=== PATIENT | female | born 1940 | race Caucasian/White ===

== ENCOUNTER → 2018-12-11 | Day surgery (SDC) | payer MEDICARE, OTHER ==
[~2018-12-11] VITALS: Ht 166.4 cm; Wt 65.8 kg
[2018-12-11] VITALS (7 sets, daily range): BP systolic 121–150; BP diastolic 82–110
[~2018-12-11] MED LIST: APIX5TAB4 PO; ASPI-983 PO; ATOR10TA66 PO; DILT240C86 PO; DILTIAZEM 240 MG (CARDIZEM CD) CAP PO NR; DRON400T2 PO; LATA7.5D OP; NETA2.5D OP; NS IV 1000 ML 1,000 ML IV SCH; NS IV 1000 ML 1,000 ML ONE; PANT40TA3 PO; proPOfol 200 MG/20 ML (DIPRIVAN) VIAL IV ONE
--- OUTSIDE RECORDS SUMMARY | 2018-12-11 07:40 | XMS REPORT | Continuity of Care Document ---
Author Organization Unknown Address Unknown Allergies Active Description Code Type Severity Reaction Onset Reported/Identified Relationship to Patient Clinical Status Yes NO KNOWN DRUG ALLERGIES UNKNOWN NO KNOWN DRUG ALLERG Medications There is no data. 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 Results Test Result Range EKG - 12/06/16 12:58 EKG Complete Vitamin D, 25 OH - 01/05/17 06:45 Vitamin D, 25 OH 18.10 ng/mL 25.00-100.00 GLENNA w/Reflex - 01/05/17 06:45 GLENNA DIRECT Negative Negative Thyroid Stimulating Hormone - 11/06/18 08:01 TSH 3.10 mIU/mL 0.32-5.00 Urinalysis - 11/06/18 09:15 Icotest N/A Negative Urine Volume Urine Volume Sufficient (10mL) Urine-Appearance Clear Clear Urine-Bacteria Negative Urine-Bilirubin Negative Negative Urine-Blood Negative Negative Urine-Color Yellow Colorless-Lt. Yellow Urine-Epithelial Cells 0-5/HPF Urine-Glucose Negative Negative Urine-Ketones Negative Negative Urine-Leukocytes Negative Negative Urine-Nitrite Negative Negative Urine-Other Urine Saved if Culture Needed (48hrs from time of collection) Urine-pH 6.5 5-8.5 Urine-Protein Negative Negative Urine-RBC Negative Urine-Specific [place] 1.010 1.000-1.030 Urine-WBC Negative Urobilinogen 0.2 E.U./dL 0.2-1.0 Thyroid Stimulating Hormone - 11/18/18 11:30 TSH 3.30 mIU/mL 0.32-5.00 Encounters ACCT No. Visit Date/Time Discharge Status Pt. Type Provider Facility Loc./Unit Complaint [id number] 11/18/2018 14:02:00 11/18/2018 23:59:00 DIS Outpatient Josh Wu [id number] 11/06/2018 07:56:00 11/06/2018 10:00:00 DIS Outpatient [facility] ER [id number] 01/05/2017 06:35:00 01/05/2017 23:59:00 DIS Outpatient Joselin Juarez [id number] 12/06/2016 12:39:00 12/06/2016 23:59:00 DIS Outpatient Jose Ruano [id number] 12/02/2018 10:40:00 12/02/2018 23:59:59 CLS Preadmit Brooklyn KUHN MD Via [facility] CARD TYPICAL ATRIAL FLUTTER [id number] 12/02/2018 10:39:00 12/02/2018 23:59:59 CLS Preadmit Brooklyn KUHN MD Via [facility] CARD TYPICAL ATRIAL FLUTTER [id number] 12/02/2018 10:37:00 12/02/2018 23:59:59 DEBBIE Preadmit Brooklyn KUHN MD Via [facility] CARD TYPICAL ATRIAL FLUTTER [id number] 12/11/2018 09:00:00 PEN Brooklyn Montemayor MD Via [facility] CATH SYMPTOMATIC AFIB
--- NOTE | 2018-12-11 10:05 | Cardioversion ---
Cardioversion PROCEDURE PHYSICIAN: Manuela Siegel MD DATE OF PROCEDURE: 12/11/18 DIRECT EXTERNAL ELECTRICAL CARDIOVERSION: Indications: Atrial Fibrillation with rapid ventricular rate Preoperative diagnoses: Atrial Fibrillation with rapid ventricular rate Postoperative diagnosis: Sinus rhythm, Successful Electrical Cardioversion History: This is a 78-year-old lady with paroxysmal atrial fibrillation, typical atrial flutter on multaq 400 mg twice a day for at least the last one week. Anesthesia: By Anesthesia services Complications: None Specimen: None Contrast: 0 Flouroscopy: none Procedure Details: The patient was brought the cathead worker after informed consent was taken, all the risks and complications were explained including the risk of stroke. Electrical cardioversion was carried out with anesthesia support with propofol. 200 joules of synchronized shock x 4 was delivered through external patches which did not restore sinus rhythm. The patient tolerated the procedure well. Conclusions: 1.Unsuccessful Cardioversion. 2.Continue oral anticoagulation and multaq 400 mg twice a day. Start Cardizem CD 240 mg daily. Manuela Siegel MD, RS, CCDS Cardiac Electrophysiology Brooklyn SIEGEL MD December 11, 2018 10:05
--- NOTE | 2018-12-11 10:07 | Anesthesia-Procedure Note ---
Procedures/Interventions Procedure Start/Stop/Diagnosis Date of Procedure: December 11, 2018 Start Time: 09:23 Stop Time: 09:28 KIMBERLEY/Cardioversion Anesthesia Type: mac ASA Class: 2 Medications propofol 50 mg Monitors and Equipment: BP Cuff - Left, Continuous EKG, End Tidal CO2, IV, Pulse Oximeter KAMRAN AKERS CRNA December 11, 2018 10:07
--- NOTE | 2018-12-11 10:09 | Anesthesia-Procedure Note ---
Procedures/Interventions Procedure Start/Stop/Diagnosis Date of Procedure: December 11, 2018 Start Time: 09:37 Stop Time: 09:44 KIMBERLEY/Cardioversion Anesthesia Type: mac ASA Class: 2 Medications propofol 70 mg Monitors and Equipment: BP Cuff - Left, Continuous EKG, End Tidal CO2, IV, Pulse Oximeter KAMRAN AKERS CRNA December 11, 2018 10:09
--- NOTE | 2018-12-11 12:06 | Anesthesia-General Post-Op ---
MAC Patient Condition Mental Status/LOC: Same as Preop Cardiovascular: Satisfactory Nausea/Vomiting: Absent Respiratory: Satisfactory Pain: Controlled Complications: Absent Post Op Complications Complications None Follow Up Care/Instructions Patient Instructions None needed. Anesthesiology Discharge Order Discharge Order Patient is doing well, no complaints, stable vital signs, no apparent adverse anesthesia problems. No complications reported per nursing. KAMRAN AKERS CRNA December 11, 2018 12:06
== END | disposition home or self-care (01) ==
LOC: CATH 07:37
PROVIDERS: ATTEND Internal Medicine Interventional Cardiology
DX: I48.0 Paroxysmal atrial fibrillation (principal); I48.3 Typical atrial flutter; I10 Essential (primary) hypertension; Z86.73 Personal history of transient ischemic attack (TIA), and cerebral infarction without residual deficits; Z79.01 Long term (current) use of anticoagulants; Z79.82 Long term (current) use of aspirin; Z79.899 Other long term (current) drug therapy
CPT/HCPCS: 92960; 93005

== ENCOUNTER → 2018-12-16 | Outpatient (CLI) | payer MEDICARE, OTHER ==
[~2018-12-16] MED LIST changes: -DILTIAZEM 240 MG (CARDIZEM CD) CAP PO NR; -NS IV 1000 ML 1,000 ML IV SCH; -NS IV 1000 ML 1,000 ML ONE; -proPOfol 200 MG/20 ML (DIPRIVAN) VIAL IV ONE
== END ==
LOC: CARD 08:29
PROVIDERS: ATTEND Internal Medicine Interventional Cardiology
DX: I48.3 Typical atrial flutter (principal); I48.1 Persistent atrial fibrillation; I63.9 Cerebral infarction, unspecified; R06.02 Shortness of breath; I10 Essential (primary) hypertension
CPT/HCPCS: 93306

== ENCOUNTER → 2018-12-18 | Day surgery (SDC) | payer MEDICARE, OTHER ==
[~2018-12-18] VITALS: Ht 165.1 cm; Wt 65.3 kg
[~2018-12-18] MED LIST changes: +CATHETER FLUSH 10 ML SYR IV PRN; +REGADENOSON 0.4 MG/5 ML SYR (LEXISCAN) IV ONE
--- OUTSIDE RECORDS SUMMARY | 2018-12-18 06:54 | XMS REPORT | Continuity of Care Document ---
[...] 5-8.5 Urine-Protein Negative Negative Urine-RBC Negative Urine-Specific [place] 1.010 1.000-1.030 Urine-WBC Negative Urobilinogen 0.2 E.U./dL 0.2-1.0 Thyroid Stimulating Hormone - 11/18/18 11:30 TSH 3.30 mIU/mL 0.32-5.00 Encounters ACCT No. Visit Date/Time Discharge Status Pt. Type Provider Facility Loc./Unit Complaint [id number] 11/18/2018 14:02:00 11/18/2018 23:59:00 DIS Outpatient Josh Wu [id number] 11/06/2018 07:56:00 11/06/2018 10:00:00 [id number]2017 06:35:00 01/05/2017 23:59:00 DIS Outpatient Joselin Juarez [id number] 12/06/2016 12:39:00 12/06/2016 23:59:00 DIS Outpatient Jose Ruano [id number] 12/11/2018 09:00:00 12/11/2018 23:59:59 CLS Preadmit Brooklyn KUHN MD Via [facility] CATH SYMPTOMATIC AFIB [id number] 12/02/2018 10:40:00 12/02/2018 23:59:59 CLS Preadmit Brooklyn KUHN MD Via [facility] CARD TYPICAL ATRIAL FLUTTER [id number] 12/02/2018 10:39:00 12/02/2018 23:59:59 CLS Preadmit Brooklyn KUHN MD Via [facility] CARD TYPICAL ATRIAL FLUTTER [id number] 12/02/2018 10:37:00 12/02/2018 23:59:59 CLS Preadmit Brooklyn KUHN MD Via [facility] CARD TYPICAL ATRIAL FLUTTER
[2018-12-18 08:47] VITALS: BP 143/70
[2018-12-18 08:48] VITALS: BP 145/79
--- NOTE | 2018-12-18 17:51 | Cardiology Stress Test Report ---
Stress Test Report Type of NM Stress Test: Test Type: LEXISCAN 0.4MG/5ML Date of Procedure/Referring: Date of Procedure: December 18, 2018 PCP Brooklyn Siegel MD Admitting Physician Josh Wu MD Indications: Symptomatic atrial flutter Baseline Heart Rate: 96 Baseline Blood Pressure: Blood Pressure Systolic: 145 Blood Pressure Diastolic: 79 Baseline EKG: Baseline EKG: atrial fibrillation Summary & Conclusion: Summary: The patient was brought to the stress lab after informed consent was taken. Stress test was performed according to the Lexiscan protocol. 0.4 mg of IV Lexiscan was given. Low-grade exercise was performed. Baseline EKG showed atrial fibrillation at 96 BPM. Initial blood pressure was 143/79 mmHg. Maximum heart rate was 128 bpm and blood pressure 143/82 mmHg. Patient did not have any chest pain, arrhythmias or ST segment changes during the stress test. 11.0 mCi of Myoview were given for rest imaging and 30.2 mCi of Myoview given for stress imaging. Transient ischemic dilatation score 0.99, EF 64 percent. Normal wall motion. Normal myocardial perfusion imaging during rest and stress. Conclusion: Pharmacological stress test was negative for ischemia. Normal LV function with no wall motion abnormalities. Normal myocardial perfusion imaging during rest and stress. Brooklyn SIEGEL MD December 18, 2018 5:51 pm
== END | disposition home or self-care (01) ==
LOC: CARD 06:37
PROVIDERS: ATTEND Internal Medicine Interventional Cardiology
DX: I48.3 Typical atrial flutter (principal); I48.1 Persistent atrial fibrillation; I63.9 Cerebral infarction, unspecified; R06.02 Shortness of breath; I10 Essential (primary) hypertension
CPT/HCPCS: 78452; 93017

== ENCOUNTER 2018-12-25 07:39 | Day surgery (SDC) | payer MEDICARE, OTHER ==
[~2018-12-25 07:39] MED LIST changes: -CATHETER FLUSH 10 ML SYR IV PRN; +NS IV 1000 ML 1,000 ML ONE; -REGADENOSON 0.4 MG/5 ML SYR (LEXISCAN) IV ONE
[2018-12-25] MEDS ORDERED: NS IV 1000 ML 1,000 ML IV SCH (07:45)
[2018-12-25 07:56] VITALS: BP 152/98
[2018-12-25] MEDS ORDERED: DILT240C86 PO (07:59)
[2018-12-25] MEDS ORDERED: proPOfol 200 MG/20 ML (DIPRIVAN) VIAL IV ONE (08:11)
[2018-12-25] MEDS ORDERED: MIDAZOLAM 2 MG/2 ML (VERSED) VIAL ONE (08:12)
[2018-12-25] MEDS ORDERED: fentaNYL INJECTION 100 MCG/2 ML AMP ONE (08:12)
[2018-12-25 08:34] VITALS: BP 152/98
[2018-12-25 09:04] VITALS: BP 109/72
[2018-12-25 09:21] VITALS: BP 126/86
--- NOTE | 2018-12-25 10:20 | Anesthesia-Procedure Note ---
Procedures/Interventions Procedure Start/Stop/Diagnosis Date of Procedure: December 25, 2018 Start Time: 08:45 Referring Physician: Robbin Preprocedural Diagnosis: Atrial Fib Brief History Called to prosthetic lab technician for scheduled cardioversion for Atrial Fibrillation. Monitors applied. O2 per NC. NPO status verified. ASA 3. Pt received a total of 80 mg Propofol in increments. VSS. Pt remained stable. Report to RN in stable condition. Stop Time: 08:55 Postprocedural Diagnosis: Atrial Fib KATIA BROWNE CRNA December 25, 2018 10:19
--- OUTSIDE RECORDS SUMMARY | 2018-12-25 10:20 | XMS REPORT | Continuity of Care Document ---
Author Organization Unknown Address Unknown Allergies Active Description Code Type Severity Reaction Onset Reported/Identified Relationship to Patient Clinical Status Yes NO KNOWN DRUG ALLERGIES UNKNOWN NO KNOWN DRUG ALLERG Yes No Known Drug Allergies [id number] Drug Allergy Unknown N/A 12/11/2018 Medications There is no data. Problems Date [...] I10 ESSENTIAL (PRIMARY) HYPERTENSION 11/06/2018 ROBERT BRYAN Mray I63.9 CEREBRAL INFARCTION, UNSPECIFIED 11/06/2018 ROBERT BRYAN Mary M62.81 MUSCLE WEAKNESS (GENERALIZED) 11/06/2018 ROBERT BRYAN Mary R29.810 FACIAL WEAKNESS 12/15/2018 HATTIE QUINONEZ, Brooklyn VIERA Ot I10 ESSENTIAL (PRIMARY) HYPERTENSION 12/15/2018 HATTIE QUINONEZ, Brooklyn VIERA Ot I48.0 PAROXYSMAL ATRIAL FIBRILLATION 12/15/2018 Brooklyn KUHN MD Ot I48.3 TYPICAL ATRIAL FLUTTER 12/15/2018 Brooklyn KUHN MD Ot Z79.01 GAME MASTER (CURRENT) USE OF ANTICOAGULANT 12/15/2018 Brooklyn KUHN MD Ot Z79.82 GAME MASTER (CURRENT) USE OF ASPIRIN 12/15/2018 Brooklyn KUHN MD Ot Z79.899 OTHER GROUP HOME (CURRENT) DRUG THERAPY 12/15/2018 Brooklyn KUHN MD Ot Z86.73 PRSNL HX OF TIA (TIA), AND CEREB INFRC W 12/17/2018 Brooklyn KUHN MD Ot I10 ESSENTIAL (PRIMARY) HYPERTENSION 12/17/2018 Brooklyn KUHN MD Ot I48.0 PAROXYSMAL ATRIAL FIBRILLATION 12/17/2018 Brooklyn KUHN MD Ot I48.3 TYPICAL ATRIAL FLUTTER 12/17/2018 Brooklyn KUHN MD Ot Z79.01 GROUP HOME (CURRENT) USE OF ANTICOAGULANT 12/17/2018 Brooklyn KUHN MD Ot Z79.82 GROUP HOME (CURRENT) USE OF ASPIRIN 12/17/2018 Brooklyn KUHN MD Ot Z79.899 OTHER GAME MASTER (CURRENT) DRUG THERAPY 12/17/2018 Brooklyn KHUN MD Ot Z86.73 PRSNL HX OF TIA (TIA), AND CEREB INFRC W 12/17/2018 Brooklyn KUHN MD Ot I10 ESSENTIAL (PRIMARY) HYPERTENSION 12/17/2018 Brooklyn KUHN MD Ot I48.0 PAROXYSMAL ATRIAL FIBRILLATION 12/17/2018 Brooklyn KUHN MD Ot I48.3 TYPICAL ATRIAL FLUTTER 12/17/2018 Brooklyn KUHN MD Ot Z79.01 GAME MASTER (CURRENT) USE OF ANTICOAGULANT 12/17/2018 Brooklyn KUHN MD Ot Z79.82 GROUP HOME (CURRENT) USE OF ASPIRIN 12/17/2018 Brooklyn KUHN MD Ot Z79.899 OTHER GAME MASTER (CURRENT) DRUG THERAPY 12/17/2018 Brooklyn KUHN MD Ot Z86.73 PRSNL HX OF TIA (TIA), AND CEREB INFRC W 12/17/2018 Brooklyn KUHN MD Ot I10 ESSENTIAL (PRIMARY) HYPERTENSION 12/17/2018 Brooklyn KUHN MD Ot I48.0 PAROXYSMAL ATRIAL FIBRILLATION 12/17/2018 Brooklyn KUHN MD, Ot I48.3 TYPICAL ATRIAL FLUTTER 12/17/2018 Brooklyn KUHN MD, Ot Z79.01 GROUP HOME (CURRENT) USE OF ANTICOAGULANT 12/17/2018 Brooklyn KUHN MD Ot Z79.82 GAME MASTER (CURRENT) USE OF ASPIRIN 12/17/2018 Brooklyn KUHN MD, Ot Z79.899 OTHER GROUP HOME (CURRENT) DRUG THERAPY 12/17/2018 Brooklyn KUHN MD, Ot Z86.73 PRSNL HX OF TIA (TIA), AND CEREB INFRC W 12/22/2018 Brooklyn KUHN MD, Ot I10 ESSENTIAL (PRIMARY) HYPERTENSION 12/22/2018 Brooklyn KUHN MD Ot I48.1 PERSISTENT ATRIAL FIBRILLATION 12/22/2018 Brooklyn KUHN MD Ot I48.3 TYPICAL ATRIAL FLUTTER 12/22/2018 Brooklyn KUHN MD Ot I63.9 CEREBRAL INFARCTION, UNSPECIFIED 12/22/2018 Brooklyn KUHN MD Ot R06.02 SHORTNESS OF BREATH 12/22/2018 Brooklyn KUHN MD Ot I10 ESSENTIAL (PRIMARY) HYPERTENSION 12/22/2018 Brooklyn KUHN MD Ot I48.1 PERSISTENT ATRIAL FIBRILLATION 12/22/2018 Brooklyn KUHN MD Ot I48.3 TYPICAL ATRIAL FLUTTER 12/22/2018 Brooklyn KUHN MD Ot I63.9 CEREBRAL INFARCTION, UNSPECIFIED 12/22/2018 Brooklyn KUHN MD Ot R06.02 SHORTNESS OF BREATH Procedures There is no data. Results Test [...] 5-8.5 Urine-Protein Negative Negative Urine-RBC Negative Urine-Specific [place] 1.010 1.000-1.030 Urine-WBC Negative Urobilinogen 0.2 E.U./dL 0.2-1.0 Thyroid Stimulating Hormone - 11/18/18 11:30 TSH 3.30 mIU/mL 0.32-5.00 Encounters ACCT No. Visit Date/Time Discharge Status Pt. Type Provider Facility Loc./Unit Complaint [id number] 11/18/2018 14:02:00 11/18/2018 23:59:00 DIS Outpatient Josh Wu [id number] 11/06/2018 07:56:00 11/06/2018 10:00:00 [id number]/05/2017 06:35:00 01/05/2017 23:59:00 DIS Outpatient Joselin Juarez [id number] 12/06/2016 12:39:00 12/06/2016 23:59:00 DIS Outpatient Jose Ruano [id number] 12/18/2018 06:37:00 12/18/2018 23:59:59 CLS Outpatient Brooklyn KUHN MD Via [facility] CARD SYMPTOMATIC ATRIAL FLUTTER [id number] 12/16/2018 08:29:00 12/16/2018 23:59:59 CLS Outpatient Brooklyn KUHN MD Via [facility] CARD TYPICAL ATRIAL FLUTTER [id number] 12/11/2018 07:37:00 12/11/2018 23:59:59 CLS Outpatient Brooklyn KUHN MD Via [facility] CATH SYMPTOMATIC AFIB [id number] 12/02/2018 10:39:00 12/02/2018 23:59:59 CLS Preadmit Brooklyn KUHN MD Via [facility] CARD TYPICAL ATRIAL FLUTTER [id number] 12/02/2018 10:37:00 12/02/2018 23:59:59 CLS Preadmit Brooklyn KUHN MD Via [facility] CARD TYPICAL ATRIAL FLUTTER [id number] 02/16/2019 08:00:00 PEN Preadmit Brooklyn KUHN MD Via [facility] CATH TYPICAL ATRIAL FLUTTER [id number] 12/25/2018 07:39:00 ACT Outpatient Brooklyn KUHN MD Via [facility] CATH SYMPTOMATIC ATRIAL FLUTTER
--- NOTE | 2018-12-25 11:42 | Cardioversion ---
Cardioversion PROCEDURE PHYSICIAN: Manuela Siegel MD DATE OF PROCEDURE: 12/25/18 DIRECT EXTERNAL ELECTRICAL CARDIOVERSION: Indications: Atrial Fibrillation with rapid ventricular rate Preoperative diagnoses: Atrial Fibrillation with rapid ventricular rate Postoperative diagnosis: Unsuccessful Electrical Cardioversion History: This is a 78-year-old lady with history of persistent atrial fibrillation. Previous unsuccessful cardioversion without antiarrhythmic therapy. She was started on multaq 400 mg twice a day. Cardioversion was not scheduled on antiarrhythmic therapy. Patient continues to be on uninterrupted oral anticoagulation. Anesthesia: By Anesthesia services Complications: None Specimen: None Contrast: 0 Flouroscopy: none Procedure Details: The patient was brought the dental laboratory assistant after informed consent was taken, all the risks and complications were explained including the risk of stroke. Electrical cardioversion was carried out with anesthesia support with propofol. 200 joules x3 of synchronized shock was delivered through external patches which did not restore sinus rhythm. The patient tolerated the procedure well. Conclusions: 1.Unsuccessful Cardioversion. 2.Continue oral anticoagulation and rate controlling agent. Discontinue multaq. 3.Follow up in office on previously scheduled appointment. Manuela Siegel MD, RS, CCDS Cardiac Electrophysiology Brooklyn SIEGEL MD December 25, 2018 11:42
--- NOTE | 2018-12-25 13:56 | Anesthesia-General Post-Op ---
MAC Patient Condition Mental Status/LOC: Same as Preop Cardiovascular: Satisfactory Nausea/Vomiting: Absent Respiratory: Satisfactory Pain: Controlled Complications: Absent Post Op Complications Complications None Follow Up Care/Instructions Patient Instructions None needed. Anesthesiology Discharge Order Discharge Order Patient is doing well, no complaints, stable vital signs, no apparent adverse anesthesia problems. No complications reported per nursing. KATIA BROWNE CRNA December 25, 2018 13:56
== END 2018-12-25 11:22 | disposition home or self-care (01) ==
LOC: CATH 07:39
PROVIDERS: ATTEND Internal Medicine Interventional Cardiology
DX: I48.0 Paroxysmal atrial fibrillation (principal); I48.3 Typical atrial flutter; I10 Essential (primary) hypertension; Z86.73 Personal history of transient ischemic attack (TIA), and cerebral infarction without residual deficits; Z79.01 Long term (current) use of anticoagulants; Z79.899 Other long term (current) drug therapy
CPT/HCPCS: 92960; 93005

== ENCOUNTER 2019-02-09 06:55 | Inpatient (IN) | payer MEDICARE, OTHER ==
[2019-02-09] VITALS (21 sets, daily range): BP systolic 116–147; BP diastolic 59–90
[~2019-02-09] VITALS: Ht 166.4 cm; Wt 67.1 kg
[~2019-02-09 06:55] MED LIST changes: -NS IV 1000 ML 1,000 ML ONE
[2019-02-09] MEDS ORDERED: LIDOCAINE 1% INJ 20 ML 20 ML VIAL ONE (06:56)
[2019-02-09] MEDS ORDERED: HEParin (CATH LAB) 2,000 ML IV ONE (06:57)
[2019-02-09] MEDS ORDERED: NS IV 1000 ML 1,000 ML IV SCH (06:59)
--- OUTSIDE RECORDS SUMMARY | 2019-02-09 06:59 | XMS REPORT | Continuity of Care Document ---
Author Organization Unknown Address Unknown Allergies Active Description Code Type Severity Reaction Onset Reported/Identified Relationship to Patient Clinical Status Yes NO KNOWN DRUG ALLERGIES UNKNOWN NO KNOWN DRUG ALLERG Yes No Known Drug Allergies [id number] Drug Allergy Unknown N/A 12/11/2018 Medications There [...] VIERA Ot I48.0 PAROXYSMAL ATRIAL FIBRILLATION 12/15/2018 HATTIE QUINONEZ, Brooklyn VIERA Ot I48.3 TYPICAL ATRIAL FLUTTER 12/15/2018 Brooklyn KUHN MD Ot Z79.01 MARINE ENGINE MACHINIST (CURRENT) USE OF ANTICOAGULANT 12/15/2018 Brooklyn KHUN MD Ot Z79.82 MARINE ENGINE MACHINIST (CURRENT) USE OF ASPIRIN 12/15/2018 Brooklyn KUHN MD Ot Z79.899 OTHER CARE HOME (CURRENT) DRUG THERAPY 12/15/2018 Brooklyn KUHN MD Ot Z86.73 PRSNL HX OF TIA (TIA), AND CEREB INFRC W 12/17/2018 Brooklyn KUHN MD Ot I10 ESSENTIAL (PRIMARY) HYPERTENSION 12/17/2018 Brooklyn KUHN MD Ot I48.0 PAROXYSMAL ATRIAL FIBRILLATION 12/17/2018 Brooklyn KUHN MD Ot I48.3 TYPICAL ATRIAL FLUTTER 12/17/2018 Brooklyn KUHN MD Ot Z79.01 CARE HOME (CURRENT) USE OF ANTICOAGULANT 12/17/2018 Brooklyn KUHN MD Ot Z79.82 CARE HOME (CURRENT) USE OF ASPIRIN 12/17/2018 Brooklyn KUHN MD Ot Z79.899 OTHER MARINE ENGINE MACHINIST (CURRENT) DRUG THERAPY 12/17/2018 Brooklyn KUHN MD Ot Z86.73 PRSNL HX OF TIA (TIA), AND CEREB INFRC W 12/17/2018 Brooklyn KUHN MD Ot I10 ESSENTIAL (PRIMARY) HYPERTENSION 12/17/2018 Brooklyn KUHN MD Ot I48.0 PAROXYSMAL ATRIAL FIBRILLATION 12/17/2018 Brooklyn KUHN MD Ot I48.3 TYPICAL ATRIAL FLUTTER 12/17/2018 Brooklyn KUHN MD Ot Z79.01 MARINE ENGINE MACHINIST (CURRENT) USE OF ANTICOAGULANT 12/17/2018 Brooklyn KUHN MD Ot Z79.82 CARE HOME (CURRENT) USE OF ASPIRIN 12/17/2018 Brooklyn KUHN MD Ot Z79.899 OTHER MARINE ENGINE MACHINIST (CURRENT) DRUG THERAPY 12/17/2018 Brooklyn KUHN MD Ot Z86.73 PRSNL HX OF TIA (TIA), AND CEREB INFRC W 12/17/2018 Brooklyn KUHN MD Ot I10 ESSENTIAL (PRIMARY) HYPERTENSION 12/17/2018 Brooklyn KUHN MD Ot I48.0 PAROXYSMAL ATRIAL FIBRILLATION 12/17/2018 Brooklyn KUHN MD Ot I48.3 TYPICAL ATRIAL FLUTTER 12/17/2018 Brooklyn KUHN MD, Ot Z79.01 CARE HOME (CURRENT) USE OF ANTICOAGULANT 12/17/2018 Brooklyn KUHN MD Ot Z79.82 MARINE ENGINE MACHINIST (CURRENT) USE OF ASPIRIN 12/17/2018 Brooklyn KUHN MD Ot Z79.899 OTHER CARE HOME (CURRENT) DRUG THERAPY 12/17/2018 Brooklyn KUHN MD, Ot Z86.73 PRSNL HX OF TIA (TIA), AND CEREB INFRC W 12/22/2018 Brooklyn KUHN MD Ot I10 ESSENTIAL [...] KUHN MD Ot R06.02 SHORTNESS OF BREATH 12/25/2018 Brooklyn KUHN MD Ot I10 ESSENTIAL (PRIMARY) HYPERTENSION 12/25/2018 Brooklyn KUHN MD Ot I48.0 PAROXYSMAL ATRIAL FIBRILLATION 12/25/2018 Brooklyn KUHN MD Ot I48.3 TYPICAL ATRIAL FLUTTER 12/25/2018 Brooklyn KUHN MD Ot Z79.01 MARINE ENGINE MACHINIST (CURRENT) USE OF ANTICOAGULANT 12/25/2018 Brooklyn KUHN MD Ot Z79.899 OTHER CARE HOME (CURRENT) DRUG THERAPY 12/25/2018 Brooklyn KUHN MD Ot Z86.73 PRSNL HX OF TIA (TIA), AND CEREB INFRC W 12/30/2018 Brooklyn KUHN MD Ot I10 ESSENTIAL (PRIMARY) HYPERTENSION 12/30/2018 Brooklyn KUHN MD Ot I48.0 PAROXYSMAL ATRIAL FIBRILLATION 12/30/2018 Brooklyn KUHN MD Ot I48.3 TYPICAL ATRIAL FLUTTER 12/30/2018 Brooklyn KUHN MD Ot Z79.01 MARINE ENGINE MACHINIST (CURRENT) USE OF ANTICOAGULANT 12/30/2018 Brooklyn KUHN MD Ot Z79.899 OTHER CARE HOME (CURRENT) DRUG THERAPY 12/30/2018 Brooklyn KUHN MD Ot Z86.73 PRSNL HX OF TIA (TIA), AND CEREB INFRC W 01/07/2019 Brooklyn KUHN MD Ot I10 ESSENTIAL (PRIMARY) HYPERTENSION 01/07/2019 Brooklyn KUHN MD Ot I48.1 PERSISTENT ATRIAL FIBRILLATION 01/07/2019 Brooklyn KUHN MD Ot I48.3 TYPICAL ATRIAL FLUTTER 01/07/2019 Brooklyn KUHN MD Ot I63.9 CEREBRAL INFARCTION, UNSPECIFIED 01/07/2019 Brooklyn KUHN MD Ot R06.02 SHORTNESS OF BREATH 01/08/2019 Brooklyn KUHN MD Ot I10 ESSENTIAL (PRIMARY) HYPERTENSION 01/08/2019 Brooklyn KUHN MD Ot I48.0 PAROXYSMAL ATRIAL FIBRILLATION 01/08/2019 Brooklyn KUHN MD Ot I48.3 TYPICAL ATRIAL FLUTTER 01/08/2019 Brooklyn KUHN MD Ot Z79.01 CARE HOME (CURRENT) USE OF ANTICOAGULANT 01/08/2019 Brooklyn KUHN MD Ot Z79.82 CARE HOME (CURRENT) USE OF ASPIRIN 01/08/2019 Brooklyn KUHN MD Ot Z79.899 OTHER CARE HOME (CURRENT) DRUG THERAPY 01/08/2019 Brooklyn KUHN MD, Ot Z86.73 PRSNL HX OF TIA (TIA), AND CEREB INFRC W 01/09/2019 Brooklyn KUHN MD, Ot I10 ESSENTIAL (PRIMARY) HYPERTENSION 01/09/2019 Brooklyn KUHN MD, Ot I48.1 PERSISTENT ATRIAL FIBRILLATION 01/09/2019 Brooklyn KUHN MD, Ot I48.3 TYPICAL ATRIAL FLUTTER 01/09/2019 Brooklyn KUHN MD, Ot I63.9 CEREBRAL INFARCTION, UNSPECIFIED 01/09/2019 Brooklyn KUHN MD, Ot R06.02 SHORTNESS OF BREATH Procedures There [...] 5-8.5 Urine-Protein Negative Negative Urine-RBC Negative Urine-Specific [place] 1.010 1.000-1.030 Urine-WBC Negative Urobilinogen 0.2 E.U./dL 0.2-1.0 Thyroid Stimulating Hormone - 11/18/18 11:30 TSH 3.30 mIU/mL 0.32-5.00 Encounters ACCT No. Visit Date/Time Discharge Status Pt. Type Provider Facility Loc./Unit Complaint [id number] 11/18/2018 14:02:00 11/18/2018 23:59:00 DIS Outpatient Josh Wu [id number] 11/06/2018 07:56:00 11/06/2018 10:00:00 DIS Outpatient [facility] ER [id number] 01/05/2017 06:35:00 01/05/2017 23:59:00 DIS Outpatient Joselin Juarez [id number] 12/06/2016 12:39:00 12/06/2016 23:59:00 DIS Outpatient Jose Ruano [id number] 12/25/2018 07:39:00 12/25/2018 11:22:00 DIS Outpatient Brooklyn KUHN MD Via [facility] CATH SYMPTOMATIC ATRIAL FLUTTER [id number] 12/18/2018 06:37:00 12/18/2018 23:59:59 CLS Outpatient Brooklyn KUHN MD Via [facility] CARD SYMPTOMATIC ATRIAL FLUTTER [id number] 12/16/2018 08:29:00 12/16/2018 23:59:59 CLS Outpatient Brooklyn KUHN MD Via [facility] CARD TYPICAL ATRIAL FLUTTER [id number] 12/11/2018 07:37:00 12/11/2018 23:59:59 CLS Outpatient Brooklyn KUHN MD Via [facility] CATH SYMPTOMATIC AFIB [id number] 12/02/2018 10:39:00 12/02/2018 23:59:59 CLS Preadmit Brooklyn KUHN MD Via [facility] CARD TYPICAL ATRIAL FLUTTER [id number] 12/02/2018 10:37:00 12/02/2018 23:59:59 CLS Preadmit Brooklyn KUHN MD Via [facility] CARD TYPICAL ATRIAL FLUTTER [id number] 02/16/2019 08:00:00 PEN Preadmit Brooklyn KUHN MD Via [facility] CATH TYPICAL ATRIAL FLUTTER
[2019-02-09] MEDS ORDERED: ISOPROTERENOL 0.2 MG/D5W 50 ML IV ONE (07:00)
[2019-02-09 07:24] LABS: HEMOGLOBIN 12.9 G/DL (11.5-16.0); RED CELL DISTRIBUTION WIDTH 13.6 % (10.0-14.5); WHITE BLOOD COUNT 4.8 10^3/uL (4.3-11.0)
[2019-02-09 07:36] LABS: INR 1.2 (0.8-1.4); PROTHROMBIN TIME PATIENT 16.1 SEC (12.2-14.7)
[2019-02-09 07:43] LABS: ALBUMIN 4.3 GM/DL (3.2-4.5); BILIRUBIN,TOTAL 1.4 MG/DL (0.1-1.0); CREATININE SERUM 1.24 MG/DL (0.60-1.30); TOTAL PROTEIN 7.1 GM/DL (6.4-8.2)
[2019-02-09] MEDS ORDERED: proPOfol 200 MG/20 ML (DIPRIVAN) VIAL IV ONE (08:05)
[2019-02-09] MEDS ORDERED: SEVOFLURANE (ULTANE) 15 ML INHAL SOLN ONE (08:06)
[2019-02-09] MEDS ORDERED: ONDANSETRON 4 MG/2 ML (SDV) Z0FRAN ONE (08:06)
[2019-02-09] MEDS ORDERED: PHENYLEPHRINE 100 MCG/ML 10 ML (ANESTHESIA) SYR ONE ×2 (08:06→09:35)
[2019-02-09] MEDS ORDERED: MIDAZOLAM 2 MG/2 ML (VERSED) VIAL ONE (08:06)
[2019-02-09] MEDS ORDERED: NS IV 1000 ML 1,000 ML ONE ×2 (08:55→09:59)
--- NOTE | 2019-02-09 12:02 | Electrophysiology Procedure ---
EP Procedure DATE OF SERVICE:02/09/19 REFERRING PHYSICIAN: Dr. Wu CARDIAC SAILING MASTER: Manuela Kuhn MD INDICATION: typical atrial flutter. PREOPERATIVE DIAGNOSIS:typical atrial flutter. POSTOPERATIVE DIAGNOSES: successful typical atrial flutter ablation. HISTORY: this is a 79-year-old lady who has been referred by Dr. Wu for atrial fibrillation with rapid ventricular rate. The patient has history of paroxysmal atrial fibrillation for 7-8 years and was on antiarrhythmic therapy. She was started on oral anticoagulation therapy on 11/09/2018. EKG dated 12/02/2018 from the office shows typical atrial flutter. Typical atrial flutter ablation was recommended. If the patient is refractory to antiarrhythmic therapy she will be considered class I indication for atrial fibrillation ablation in the future. The patient is planned for comprehensive EP study and ablation. PROCEDURE PERFORMED: 1. Comprehensive EP study with induction. 2. Fluoroscopy. 3. left atrial pacing and recording. 4. Drug infusion. 5. Ablation of typical atrial flutter. 6. Comprehensive 3D mapping with the carto system. 7. Direct electrical cardioversion. COMPLICATION: None. ESTIMATED BLOOD LOSS: 10 mL. CONTRAST USED: None. FLUOROSCOPY TIME: 9.15 minutes. FLUOROSCOPY DOSE: 50 mgy. SPECIMENS: None. ANESTHESIA: Done by our anesthesia colleagues. ANTICOAGULATION: uninterrupted oral anticoagulation. PROCEDURE IN DETAIL: After informed consent was taken, the patient was brought to the EP lab. Anesthesia was provided by our anesthesia colleagues. The patient was draped and prepped in the usual sterile fashion. The patient presented to the EP lab in atrial fibrillation rhythm. Access was gained in the right femoral vein with a 6-[place] and an 8-[place] sheath. Left access in left femoral vein was gained with 5-[place] and 6-[place] sheath respectively. High right atrial catheter was an ablation catheter, right ventricular catheter was placed, his catheter and the CS catheter were also placed. A comprehensive EP study was done including a CS pacing. Direct electrical Cardioversion was done with 200J which was successful and converted the patient to sinus rhythm. A 3D electroanatomic mapping was donewith the carto system. dual AV boone physiology was demonstrated. No PSVT was induced with the without Isuprel. We demonstrated dual AV boone echoes, however we were not able to reproduce it again. That was without Isuprel. We went to Isuprel 4 g but were not able to induce PSVT or AV boone echoes, Therefore AVNRT ablation was not even considered. Left atrial pacing and recording Was performed, however, no left lateral pathway was demonstrated. Ablation was performed in the cavotricuspid isthmus.CS pacing and pacing from the ablation catheter at different positions on the lateral side of the ablation line were used to verify bidirectional block. We then waited for 30 minutes and rechecked and confirmed bidirectional block.Isuprel was given post-procedure, however, we could not induce atrial flutter.The patienttolerated the procedure well and did not have any complication. The patientleft the lab in sinus rhythm. Total ablation time was 2354 seconds. MEASUREMENTS/EP STUDY: AH interval 48 ms, HV interval 55 ms, neck sign VT interval 122 ms, QRS duration 77 ms, QT interval 288 ms, R-R interval 1042 seconds, AV Wenckebach when pacing at cycle length 470 ms, AV Wenckebach when pacing at cycle length 450 ms, Fast pathway ERP was 600/540 ms, Slow pathway ERP was 600/490 ms, Second slow pathway ERP was 600/350 ms, Isuprel 2mcg, slow pathway ERP was 600/350 ms, Isuprel 4mcg, slow pathway ERP was below 450/210 ms. PLAN: The patient will be observed overnight and will be discharged home tomorrow with precise followup instructions. Manuela Kuhn MD, [facility], CCDS Cardiac Electrophysiology Brooklyn KUHN MD Feb 09, 2019 12:02
--- NOTE | 2019-02-09 12:02 | Cardiac Procedure Note-CS/ASA ---
Pre-Procedure Note Pre-Op Procedure Note H&P Reviewed The H&P was reviewed, patient examined and no changes noted. Date H&P Reviewed: Feb 09, 2019 Time H&P Reviewed: 07:30 Conscious Sedation Pre-Proced Time 07:30 ASA Score 3 For ASA 3 and 4: Consider anesthesia and medical clearance. Also, for patients with a history of failed moderate sedation consider anesthesia. Airway Lungs Heart ASA score ASA 1: a normal healthy patient ASA 2: a patient with a mild systemic disease (mid diabetes, controlled hypertension, obesity ASA 3: a patient with a severe systemic disease that limits activity (angina, COPD, prior Myocardial infarction) ASA 4: a patient with an incapacitating disease that is a constant threat to life (CHF, renal failure) ASA 5: a moribund patient not expected to survive 24 hrs. (ruptured aneurysm) ASA 6: a declared brain- patient whose organs are being harvested. For emergent operations, add the letter E after the classification Mallampati Classification Grade 1 Sedation Plan Analgesia, Amnesia, Plan communicated to team members, Discussed options with patient/fam, Discussed risks with patient/fam The patient is an appropriate candidate to undergo the planned procedure, sedation, and anesthesia. The patient immediately re-assessed prior to indication. Brooklyn KUHN MD Feb 09, 2019 12:02
[2019-02-09] MEDS ORDERED: fentaNYL INJECTION 100 MCG/2 ML AMP ONE (12:04)
--- NOTE | 2019-02-09 12:12 | History & Physicial-Cardiolgy ---
HPI-Cardiology Cardiology Consultation: Date of Consultation 02/09/19 Date of Admission Attending Physician Brooklyn Siegel MD Admitting Physician Josh Wu MD Consulting Physician Brooklyn SIEGEL MD HPI: Time Seen by a Provider: 07:45 Chief Complaint: palpitations this is a 79-year-old lady who has been referred by Dr. Wu for atrial fibrillation with rapid ventricular rate. The patient has history of paroxysmal atrial fibrillation for 7-8 years and was on antiarrhythmic therapy. She was started on oral anticoagulation therapy on 11/09/2018. EKG dated 12/02/2018 from the office shows typical atrial flutter. Typical atrial flutter ablation was recommended. If the patient is refractory to antiarrhythmic therapy she will be considered class I indication for atrial fibrillation ablation in the future. Review of Systems-Cardiology Review of Systems Constitutional: As described under HPI; No As described under HPI, No no symptoms reported, No chills, No fever, No lightheadedness Eyes: No As described under HPI, No no symptoms reported, No blindness, No blurred vision, No contact lenses, No drainage, No decreased acuity, No foreign body sensation, No pain, No vision change Ears/Nose/Throat: No As described under HPI, No no symptoms reported, No ch ronic hearing loss, No ear discharge, No ear pain, No nasal drainage, No ulcerations Respiratory: No no symptoms reported; As described under HPI; No As described under HPI, No cough, No orthopnea, No shortness of breath, No SOB with excertion Cardiovascular: No no symptoms reported; As described under HPI; No As described under HPI, No chest pain, No edema, No irregular heart rate, No lightheadedness; palpitations Gastrointestinal: No no symptoms reported, No As described under HPI, No abdomen distended, No abdominal pain, No blood streaked bowels, No constipation, No diarrhea, No nausea, No vomiting, No stool coloration changes Genitourinary: No As described under HPI, No burning, No dysuria, No discharge, No frequency, No flank pain, No hematuria, No urgency : Yes : No Skin: No rash, No skin related problems, No ulcerations Psychiatric/Neurological: No anxiety, No depression, No seizure, No focal weakness, No syncope Hematologic: No bleeding abnormalities [id number] Hx Patient Social History Alcohol Use: Denies Use Recreational Drug Use: No 2nd Hand Smoke Exposure: No Recent Foreign Travel: No Recent Infectious Disease Expo: No Immunizations Up To Date Date of Pneumonia Vaccine: December 11, 1996 Past Medical History PMH As described under Assessment. Family Medical History Family History: Cardiovascular disease G8 BROTHER FH: cancer 19 MOTHER Allergies and Home Medications Allergies Coded Allergies: No Known Drug Allergies (Unverified , 12/11/18) Home Medications Apixaban 5 Mg Tab.ds.pk, 5 MG PO BID, (Reported) Aspirin 81 Mg Tablet.dr, 81 MG PO HS, (Reported) Diltiazem HCl 240 Mg Cap.er.24h, 240 MG PO DAILY, (Reported) Latanoprost/Pf 7.5 Ml Drops, 1 DROP OP HS, (Reported) Netarsudil Mesylate 2.5 Ml Drops, 1 DROP OP HS, (Reported) Pantoprazole Sodium 40 Mg Tablet.dr, 40 MG PO DAILY, (Reported) Patient Home Medication List Home Medication List Reviewed: Yes Physical Exam-Cardiology Physical Exam Vital Signs/I&O 02/09/19 07:12 Temp 98.2 Pulse 112 Resp 20 B/P (MAP) 138/90 (106) Pulse Ox 100 Capillary Refill : Constitutional: appears stated age; No apparent distress; well-developed, well- nourished HEENT: PERRL; No normal ENT inspection, No TMs normal, No pharynx normal, No scleral icterus (R), No scleral icterus (L), No pale conjunctivae (R), No pale conjunctivae (L), No photophobia, No TM abnormal (R), No TM abnormal (L), No pharyngeal erythema, No tonsillar exudate, No other, No discharge, No EOMI; hearing is well preserved; No hard of hearing; oral hygience is good; No ulceration, No xanthelasmas are seen Neck: No non-tender, No full range of motion, No supple, No normal inspection, No carotid bruit, No limited range of motion, No lymphadenopathy (R), No lymphadenopathy (L), No tender lateral, No tender midline, No thyromegaly, No other; carotid pulses are 2 + bilaterally; No with good upstrokes Respiratory: chest is bilaterally symmetric, lungs clear to auscultation Cardiovascular: irregularly irregular, S1 and S2 Gastrointestinal: No tender, No soft, No round, No distended, No pulsatile mass, No organomegaly, No guarding, No rebound, No tenderness, No hernia, No mass, No audible bowel sounds, No abnormal bowel sounds, No abdominal bruits, No spleenomegaly, No other Rectal: deferred Extremities: No normal range of motion, No non-tender, No normal inspection, No pedal edema, No calf tenderness, No normal capillary refill, No pelvis stable, No calf tenderness, No inflammation, No pedal edema, No slow capillary refill, No swelling, No other, No abrasion, No clubbing, No cyanosis, No ecchymosis, No laceration, No no lower extremity edema bilateral, No significant edema, No tenderness, No wound Neurologic/Psychiatric: no motor/sensory deficits, alert, normal mood/affect, oriented x 3, power is 5/5 both on sides Skin: No rash, No ulcerations Data Review Labs Laboratory Tests 02/09/19 07:15: White Blood Count 4.8, Red Blood Count 4.36, Hemoglobin 12.9, Hematocrit 40, Mean Corpuscular Volume 91, Mean Corpuscular Hemoglobin 30, Mean Corpuscular Hemoglobin Concent 33, Red Cell Distribution Width 13.6, Platelet Count 192, Mean Platelet Volume 10.0, Prothrombin Time 16.1H, INR Comment 1.2, Activated Partial Thromboplast Time 42H, Sodium Level 139, Potassium Level 4.0, Chloride Level 105, Carbon Dioxide Level 23, Anion Gap 11, Blood Urea Nitrogen 16, Creatinine 1.24, Estimat Glomerular Filtration Rate 42, BUN/Creatinine Ratio 13, Glucose Level 100, Calcium Level 10.0, Corrected Calcium 9.8, Total Bilirubin 1.4H, Aspartate Amino Transf (AST/SGOT) 18, Alanine Aminotransferase (ALT/SGPT) 10, Alkaline Phosphatase 105, Total Protein 7.1, Albumin 4.3 ECG Impression ECG Initial ECG Impression: Atrial Fibrillation w/RVR A/P-Cardiology Assessment/Admission Diagnosis typical atrial flutter, Paroxysmal atrial fibrillation and rapid ventricular rate. Admission Status: Observation Plan typical atrial flutter ablation is recommended. Possible atrial fibrillation ablation in the future if the patient continues to be refractory to antiarrhythmic therapy. Clinical Quality Measures DVT/VTE Risk/Contraindication: Risk Factor Score Per Nursin RFS Level Per Nursing on Admit: 1=Low/No VTE PPX Brooklyn SIEGEL MD Feb 09, 2019 12:12
[2019-02-09] MEDS ORDERED: PATIENT MAY USE OWN MEDS, ALL PO SCH (12:15)
[2019-02-09] MEDS ORDERED: ONDANSETRON 4 MG/2 ML (SDV) Z0FRAN IVP PRN (12:45)
[2019-02-09] MEDS ORDERED: HYDROmorphone 2 MG/ML VIAL (DILAUDID) IV ONE (12:45)
[2019-02-09] MEDS: NS IV 1000 ML 1,000 ML IV SCH ×2 (14:59→22:33)
[2019-02-09] MEDS: APIXABAN 5 MG (ELIQUIS) TABLET PO SCH (21:24)
[2019-02-10] VITALS (20 sets, daily range): BP systolic 96–148; BP diastolic 43–104
[2019-02-10 03:55] LABS: HEMOGLOBIN 11.4 G/DL (11.5-16.0); MEAN PLATELET VOLUME 9.9 FL (7.4-10.4); RED CELL DISTRIBUTION WIDTH 13.7 % (10.0-14.5); WHITE BLOOD COUNT 5.4 10^3/uL (4.3-11.0)
[2019-02-10 04:18] LABS: BUN/CREATININE RATIO 10; CALCIUM 8.2 MG/DL (8.5-10.1); CARBON DIOXIDE 18 MMOL/L (21-32); CHLORIDE 111 MMOL/L (98-107); CREATININE SERUM 0.89 MG/DL (0.60-1.30); GFR ESTIMATED > 60; GLUCOSE 92 MG/DL (70-105); POTASSIUM 3.9 MMOL/L (3.6-5.0); SODIUM 139 MMOL/L (135-145)
--- NOTE | 2019-02-10 07:09 | Anesthesia-General Post-Op ---
MAC Patient Condition Mental Status/LOC: Same as Preop Cardiovascular: Satisfactory Nausea/Vomiting: Absent Respiratory: Satisfactory Pain: Controlled Complications: Absent Post Op Complications Complications None Follow Up Care/Instructions Patient Instructions None needed. Anesthesiology Discharge Order Discharge Order Patient is doing well, no complaints, stable vital signs, no apparent adverse anesthesia problems. No complications reported per nursing. KAMRAN AKERS CRNA Feb 10, 2019 07:09
[2019-02-10] MEDS: ASPIRIN E.C. 81 MG (ECOTRIN) TAB PO SCH (08:29)
[2019-02-10] MEDS: APIXABAN 5 MG (ELIQUIS) TABLET PO SCH ×2 (08:29→20:52)
[2019-02-10] MEDS: DILTIAZEM 240 MG (CARDIZEM CD) CAP PO SCH (09:58)
[2019-02-10] MEDS ORDERED: DILTIAZEM 25 MG/5 ML INJ (CARDIZEM) VIAL IVP NR (10:30)
--- NOTE | 2019-02-10 11:37 | NUR ---
Pastoral care visit.
[2019-02-10] MEDS ORDERED: DILTIAZEM IV FOR DRIP 125 MG in NS (IVPB) 100 ML IV STA (11:45)
--- NOTE | 2019-02-10 11:50 | NUR ---
This RN took over care on pt at this time from PARISA Berman
--- NOTE | 2019-02-10 15:19 | Cardiology Progress Note ---
Cardiology SOAP Progress Note Subjective: Palpitations Objective: I&O/Vital Signs 02/10/19 02/10/19 02/10/19 02/10/19 04:00 04:00 05:00 06:00 Pulse 85 105 86 Resp 15 17 36 B/P (MAP) 134/65 (88) 132/83 (99) Pulse Ox 98 94 99 O2 Delivery Nasal Cannula Nasal Cannula Nasal Cannula Nasal Cannula O2 Flow Rate 4.00 4.00 4.00 4.00 02/10/19 02/10/19 02/10/19 02/10/19 07:00 07:54 08:30 09:08 Temp 97.6 Pulse 90 98 Resp 18 B/P (MAP) 137/78 (97) Pulse Ox 98 O2 Delivery Nasal Cannula Nasal Cannula Nasal Cannula O2 Flow Rate 3.00 3.00 3.00 02/10/19 02/10/19 02/10/19 02/10/19 12:00 12:00 12:00 12:00 Temp 98.4 Pulse 147 133 Resp 18 B/P (MAP) 126/104 126/104 (111) Pulse Ox 94 O2 Delivery Room Air Nasal Cannula O2 Flow Rate 3.00 3.00 02/10/19 00:00 Intake Total 350 ml Balance 350 ml Weight (Pounds): 140 Weight (Ounces): 0.0 Weight (Calculated Kilograms): 63.758803 Constitutional: appears stated age; No apparent distress; well-developed, well- nourished Respiratory: chest is bilaterally symmetric, lungs clear to auscultation Cardiovascular: regular rate-rhythm, tachycardia, S1 and S2 Gastrointestional: No tender, No soft, No round, No distended, No pulsatile mass, No organomegaly, No guarding, No rebound, No tenderness, No hernia, No mass, No audible bowel sounds, No abnormal bowel sounds, No abdominal bruits, No spleenomegaly, No other Extremities: No normal range of motion, No non-tender, No normal inspection, No pedal edema, No calf tenderness, No normal capillary refill, No pelvis stable, No calf tenderness, No inflammation, No pedal edema, No slow capillary refill, No swelling, No other, No abrasion, No clubbing, No cyanosis, No ecchymosis, No laceration, No no lower extremity edema bilateral, No significant edema, No tenderness, No wound Neurologic/Psychiatric: no motor/sensory deficits, alert, normal mood/affect, oriented x 3, power is 5/5 both on sides Skin: No rash, No ulcerations Results/Procedures: Labs Laboratory Tests 02/10/19 02:55: White Blood Count 5.4, Red Blood Count 3.83L, Hemoglobin 11.4L, Hematocrit 35, Mean Corpuscular Volume 91, Mean Corpuscular Hemoglobin 30, Mean Corpuscular Hemoglobin Concent 33, Red Cell Distribution Width 13.7, Platelet Count 177, Mean Platelet Volume 9.9, Sodium Level 139, Potassium Level 3.9, Chloride Level 111H, Carbon Dioxide Level 18L, Anion Gap 10, Blood Urea Nitrogen 9, Creatinine 0.89, Estimat Glomerular Filtration Rate > 60, BUN/Creatinine Ratio 10, Glucose Level 92, Calcium Level 8.2L Microbiology 02/09/19 MRSA Screen - Final, Complete MRSA not isolated A/P: Assessment/Dx: typical atrial flutter, Paroxysmal atrial fibrillation and rapid ventricular rate. Plan: Typical atrial flutter ablation was successfully performed yesterday. This morning patient was in sinus tachycardia. Plan was to give Cardizem and discharged home. However I was called. Minutes later that the patient went into atrial fibrillation with rapid ventricular rate. Cardizem 360 mg was given with no significant response. We then gave Cardizem 10 mg IV times one with no significant response. We will start with Cardizem infusion. start multaq 400mg bid. If the patient continues to be in atrial fibrillation and rapid ventricular rate we will schedule for cardioversion in the morning. Keep nothing by mouth after midnight. Possible atrial fibrillation ablation in the future if the patient continues to be refractory to antiarrhythmic therapy. Thank you for your consultation. Please call me if you have any questions. Manuela Siegel MD, FACP, FACC, FSCAI, FHRS, CCDS Interventional Cardiology Cardiac Electrophysiology Vascular Medicine and Endovascular Interventions Brooklyn SIEGEL MD Feb 10, 2019 15:19
[2019-02-10] MEDS: NS IV 1000 ML 1,000 ML IV SCH (18:25)
[2019-02-10] MEDS: DRONEDARONE TABLET 400 MG TABLET PO SCH (20:52)
[2019-02-11] VITALS (11 sets, daily range): BP systolic 91–137; BP diastolic 56–77
--- NOTE | 2019-02-11 04:27 | NUR ---
Patient noted to have decreased Oxygen level with periods of apnea. Oxygen saturation level down to 70 multiple times. Patient wearing Oxygen at 2L/NC with these events. Patient wakes up and Oxygen saturation climbs back into the 90's.
[2019-02-11] MEDS ORDERED: NS IV 500 ML 500 ML ONE (07:53)
[2019-02-11] MEDS ORDERED: proPOfol 200 MG/20 ML (DIPRIVAN) VIAL IV ONE (09:08)
--- NOTE | 2019-02-11 09:15 | NUR ---
DR KUHN HERE FOR CARDIO VERSION. PT GIVEN 75 OF PROPOFOL FOR SEDATION AND SHOCKED 3 TIMES AT 200 JLS. PT REMAINS IN AFIB/FLUTTER AND WILL BE DISCHARGED LATER TODAY IF RATE REMAINS CONTROLLED.
[2019-02-11] MEDS: DILTIAZEM 240 MG (CARDIZEM CD) CAP PO SCH (09:27)
[2019-02-11] MEDS: ASPIRIN E.C. 81 MG (ECOTRIN) TAB PO SCH (09:27)
[2019-02-11] MEDS: DRONEDARONE TABLET 400 MG TABLET PO SCH (09:27)
[2019-02-11] MEDS: APIXABAN 5 MG (ELIQUIS) TABLET PO SCH (09:27)
[2019-02-11] MEDS ORDERED: DRON400T2 PO (09:32)
--- NOTE | 2019-02-11 10:11 | Anesthesia-Procedure Note ---
Procedures/Interventions Procedure Start/Stop/Diagnosis Date of Procedure: Feb 11, 2019 Start Time: 09:15 Referring Physician: Robbin Preprocedural Diagnosis: A fib Stop Time: 09:25 KIMBERLEY/Cardioversion Anesthesia Type: MAC ASA Class: 3 Medications propofol 70mg total Monitors and Equipment: BP Cuff - Left, Continuous EKG, End Tidal CO2, IV, Pulse Oximeter VERITO RAMOS CRNA Feb 11, 2019 10:11
--- NOTE | 2019-02-11 10:46 | Cardioversion ---
Cardioversion PROCEDURE PHYSICIAN: Manuela Siegel MD DATE OF PROCEDURE: 02/11/19 DIRECT EXTERNAL ELECTRICAL CARDIOVERSION: Indications: Atrial Fibrillation with rapid ventricular rate Preoperative diagnoses: Atrial Fibrillation with rapid ventricular rate Postoperative diagnosis: Successful cardioversion. History: This is a pleasant 79-year-old lady with known history of paroxysmal atrial fibrillation and typical atrial flutter. She had typical atrial flutter ablation done on 02/09/2019 which was successful. She presented in atrial fibrillation and was successfully cardioverted before the procedure. However she converted back to atrial fibrillation with rapid ventricular rate within 24 hours. She was started back on Cardizem. However patient continued to be in atrial fibrillation therefore the patient was started on multaq 400 mg twice a day and cardioversion is planned. Anesthesia: By Anesthesia services Complications: None Specimen: None Contrast: 0 Flouroscopy: none Procedure Details: The patient was brought the laundry laborer after informed consent was taken, all the risks and complications were explained including the risk of stroke. Electrical cardioversion was carried out with anesthesia support with propofol. 200 joules of 3 synchronized shock was delivered through external patches which did not convert the patient to sinus rhythm. The patient tolerated the procedure well. Conclusions: 1.unsuccessful cardioversion. 2.Continue oral anticoagulation, multaq and Cardizem. 3.Follow up in office in 7-14 days. Manuela Siegel MD, RS, CCDS Cardiac Electrophysiology Brooklyn SIEGEL MD Feb 11, 2019 10:46
--- NOTE | 2019-02-11 10:47 | Cardiology Progress Note ---
Cardiology SOAP Progress Note Subjective: Atrial fibrillation with rapid ventricular rate Objective: I&O/Vital Signs 02/10/19 02/10/19 02/10/19 02/10/19 23:00 23:40 23:40 23:55 Temp 97.2 97.0 Pulse 72 75 Resp 11 16 B/P (MAP) 101/61 (74) 96/67 (77) Pulse Ox 91 97 96 O2 Delivery Room Air Nasal Cannula Nasal Cannula Room Air O2 Flow Rate 2.00 2.00 02/11/19 02/11/19 02/11/19 02/11/19 00:00 01:00 01:00 02:00 Pulse 77 65 65 76 Resp 16 13 13 B/P (MAP) 114/70 (85) 91/56 (68) 106/70 (82) Pulse Ox 96 95 95 O2 Delivery Room Air Room Air Room Air 02/11/19 02/11/19 02/11/19 02/11/19 03:00 03:35 04:00 04:00 Temp 97.0 Pulse 80 69 Resp 14 12 B/P (MAP) 114/69 (84) 109/69 (82) Pulse Ox 92 95 92 O2 Delivery Room Air Nasal Cannula Nasal Cannula Nasal Cannula O2 Flow Rate 2.00 2.00 2.00 02/11/19 02/11/19 02/11/19 02/11/19 05:00 06:00 07:00 07:00 Pulse 74 75 80 81 Resp 13 16 14 B/P (MAP) 104/59 (74) 106/69 (81) 123/76 (92) Pulse Ox 92 94 93 O2 Delivery Nasal Cannula Nasal Cannula Nasal Cannula O2 Flow Rate 2.00 2.00 2.00 02/11/19 02/11/19 02/11/19 02/11/19 08:00 08:00 09:00 09:00 Pulse 90 99 Resp 21 23 B/P (MAP) 136/74 (94) 137/77 (97) Pulse Ox 95 98 97 O2 Delivery Room Air Nasal Cannula Nasal Cannula Nasal Cannula O2 Flow Rate 2.00 2.00 02/11/19 10:00 Pulse 87 Resp 17 B/P (MAP) 123/74 (90) Pulse Ox 94 O2 Delivery Nasal Cannula O2 Flow Rate 2.00 02/11/19 00:00 Intake Total 900 ml Output Total 1150 ml Balance -250 ml Weight (Pounds): 148 Weight (Ounces): 0.6 Weight (Calculated Kilograms): 67.545736 Constitutional: appears stated age; No apparent distress; well-developed, well- nourished Respiratory: chest is bilaterally symmetric, lungs clear to auscultation Cardiovascular: irregularly irregular, tachycardia, S1 and S2 Gastrointestional: No tender, No soft, No round, No distended, No pulsatile mass, No organomegaly, No guarding, No rebound, No tenderness, No hernia, No mass, No audible bowel sounds, No abnormal bowel sounds, No abdominal bruits, No spleenomegaly, No other Extremities: No normal range of motion, No non-tender, No normal inspection, No pedal edema, No calf tenderness, No normal capillary refill, No pelvis stable, No calf tenderness, No inflammation, No pedal edema, No slow capillary refill, No swelling, No other, No abrasion, No clubbing, No cyanosis, No ecchymosis, No laceration, No no lower extremity edema bilateral, No significant edema, No tenderness, No wound Neurologic/Psychiatric: no motor/sensory deficits, alert, normal mood/affect, oriented x 3, power is 5/5 both on sides Skin: No rash, No ulcerations Results/Procedures: Labs Microbiology 02/09/19 MRSA Screen - Final, Complete MRSA not isolated A/P: Assessment/Dx: typical atrial flutter, Paroxysmal atrial fibrillation and rapid ventricular rate. Plan: Typical atrial flutter ablation was successfully performed 02/09/2019. Atrial fibrillation with rapid ventricular rate. Patient continues to be in atrial fibrillation despite Cardizem infusion. Multaq was started last night. We will attempt cardioversion today. If cardioversion is unsuccessful, patient will be discharged with rate control, oral anticoagulation and multaq. I'll see the patient in 7 days and schedule another cardioversion when multaq has been in the system for at least one week. Possible atrial fibrillation ablation in the future if the patient continues to be refractory to antiarrhythmic therapy. Thank you for your consultation. Please call me if you have any questions. Manuela Siegel MD, FACP, FACC, FSCAI, FHRS, CCDS Interventional Cardiology Cardiac Electrophysiology Vascular Medicine and Endovascular Interventions Brooklyn SIEGEL MD Feb 11, 2019 10:47
--- NOTE | 2019-02-11 11:38 | NUR ---
Pastoral care visit.
--- OUTSIDE RECORDS SUMMARY | 2019-02-11 11:51 | XMS REPORT | Continuity of Care Document ---
Author Organization Unknown Address Unknown Allergies Active Description Code Type Severity Reaction Onset Reported/Identified Relationship to Patient Clinical Status Yes NO KNOWN DRUG ALLERGIES UNKNOWN NO KNOWN DRUG ALLERG Yes No Known Drug Allergies [id number] Drug Allergy Unknown N/A 12/11/2018 Medications There [...] FLUTTER 12/15/2018 Brooklyn KUHN MD Ot Z79.01 HOT BILLET SHEAR OPERATOR (CURRENT) USE OF ANTICOAGULANT 12/15/2018 Brooklyn KUHN MD Ot Z79.82 HOT BILLET SHEAR OPERATOR (CURRENT) USE OF ASPIRIN 12/15/2018 Brooklyn KUHN MD Ot Z79.899 OTHER HALF-WAY (CURRENT) DRUG THERAPY 12/15/2018 Brooklyn KUHN MD Ot Z86.73 PRSNL HX OF TIA (TIA), AND CEREB INFRC W 12/17/2018 Brooklyn KUHN MD Ot I10 ESSENTIAL (PRIMARY) HYPERTENSION 12/17/2018 Brooklyn KUHN MD Ot I48.0 PAROXYSMAL ATRIAL FIBRILLATION 12/17/2018 Brooklyn KUHN MD Ot I48.3 TYPICAL ATRIAL FLUTTER 12/17/2018 Brooklyn KUHN MD Ot Z79.01 HALF-WAY (CURRENT) USE OF ANTICOAGULANT 12/17/2018 Brooklyn KUHN MD Ot Z79.82 HALF-WAY (CURRENT) USE OF ASPIRIN 12/17/2018 Brooklyn KUHN MD Ot Z79.899 OTHER HOT BILLET SHEAR OPERATOR (CURRENT) DRUG THERAPY 12/17/2018 Brooklyn KUHN MD Ot Z86.73 PRSNL HX OF TIA (TIA), AND CEREB INFRC W 12/17/2018 Brooklyn KUHN MD Ot I10 ESSENTIAL (PRIMARY) HYPERTENSION 12/17/2018 Brooklyn KUHN MD Ot I48.0 PAROXYSMAL ATRIAL FIBRILLATION 12/17/2018 Brooklyn KUHN MD Ot I48.3 TYPICAL ATRIAL FLUTTER 12/17/2018 Brooklyn KUHN MD Ot Z79.01 HOT BILLET SHEAR OPERATOR (CURRENT) USE OF ANTICOAGULANT 12/17/2018 Brooklyn KUHN MD Ot Z79.82 HALF-WAY (CURRENT) USE OF ASPIRIN 12/17/2018 Brooklyn KUHN MD Ot Z79.899 OTHER HOT BILLET SHEAR OPERATOR (CURRENT) DRUG THERAPY 12/17/2018 Brooklyn KUHN MD Ot Z86.73 PRSNL HX OF TIA (TIA), AND CEREB INFRC W 12/17/2018 Brooklyn KUHN MD Ot I10 ESSENTIAL (PRIMARY) HYPERTENSION 12/17/2018 Brooklyn KUHN MD Ot I48.0 PAROXYSMAL ATRIAL FIBRILLATION 12/17/2018 Brooklyn KUHN MD Ot I48.3 TYPICAL ATRIAL FLUTTER 12/17/2018 Brooklyn KUHN MD, Ot Z79.01 HALF-WAY (CURRENT) USE OF ANTICOAGULANT 12/17/2018 Brooklyn KUHN MD Ot Z79.82 HOT BILLET SHEAR OPERATOR (CURRENT) USE OF ASPIRIN 12/17/2018 Brooklyn KUHN MD Ot Z79.899 OTHER HALF-WAY (CURRENT) DRUG THERAPY 12/17/2018 Brooklyn KUHN MD, [...] FLUTTER 12/25/2018 Brooklyn KUHN MD Ot Z79.01 HOT BILLET SHEAR OPERATOR (CURRENT) USE OF ANTICOAGULANT 12/25/2018 Brooklyn KUHN MD Ot Z79.899 OTHER HALF-WAY (CURRENT) DRUG THERAPY 12/25/2018 Brooklyn KUHN MD Ot Z86.73 PRSNL HX OF TIA (TIA), AND CEREB INFRC W 12/30/2018 Brooklyn KUHN MD Ot I10 ESSENTIAL (PRIMARY) HYPERTENSION 12/30/2018 Brooklyn KUHN MD Ot I48.0 PAROXYSMAL ATRIAL FIBRILLATION 12/30/2018 Brooklyn KUHN MD Ot I48.3 TYPICAL ATRIAL FLUTTER 12/30/2018 Brooklyn KUHN MD Ot Z79.01 HOT BILLET SHEAR OPERATOR (CURRENT) USE OF ANTICOAGULANT 12/30/2018 Brooklyn KUHN MD Ot Z79.899 OTHER HALF-WAY (CURRENT) DRUG THERAPY 12/30/2018 Brooklyn KHUN MD Ot Z86.73 PRSNL HX [...] FLUTTER 01/08/2019 Brooklyn KUHN MD Ot Z79.01 HALF-WAY (CURRENT) USE OF ANTICOAGULANT 01/08/2019 Brooklyn KUHN MD Ot Z79.82 HALF-WAY (CURRENT) USE OF ASPIRIN 01/08/2019 Brooklyn KUHN MD Ot Z79.899 OTHER HALF-WAY (CURRENT) DRUG THERAPY 01/08/2019 Brooklyn KUHN MD, [...] 5-8.5 Urine-Protein Negative Negative Urine-RBC Negative Urine-Specific [place] 1.010 1.000-1.030 Urine-WBC Negative Urobilinogen 0.2 E.U./dL 0.2-1.0 Thyroid Stimulating Hormone - 11/18/18 11:30 TSH 3.30 mIU/mL 0.32-5.00 Automated blood complete blood count (hemogram) panel - 02/09/19 07:15 Blood leukocytes automated count (number/volume) 4.8 10*3/uL 4.3-11.0 Blood erythrocytes automated count (number/volume) 4.36 10*6/uL 4.35-5.85 Venous blood hemoglobin measurement (mass/volume) 12.9 g/dL 11.5-16.0 Blood hematocrit (volume fraction) 40 % 35-52 Automated erythrocyte mean corpuscular volume 91 [foz_us] 80-99 Automated erythrocyte mean corpuscular hemoglobin (mass per erythrocyte) 30 pg 25-34 Automated erythrocyte mean corpuscular hemoglobin concentration measurement (mass/volume) 33 g/dL 32-36 Automated erythrocyte distribution width ratio 13.6 % 10.0- 14.5 Automated blood platelet count (count/volume) 192 10*3/uL 130-400 Automated blood platelet mean volume measurement 10.0 [foz_us] 7.4-10.4 PT panel in platelet poor plasma by coagulation assay - 02/09/19 07:15 Prothrombin time (PT) in platelet poor plasma by coagulation assay 16.1 s 12.2-14.7 INR in platelet poor plasma or blood by coagulation assay 1.2 0.8-1.4 Activated partial thromboplastin time (aPTT) in platelet poor plasma bycoagulation assay - 02/09/19 07:15 Activated partial thromboplastin time (aPTT) in platelet poor plasma bycoagulation assay 42 s 24-35 Comprehensive metabolic panel - 02/09/19 07:15 Serum or plasma sodium measurement (moles/volume) 139 mmol/L 135-145 Serum or plasma potassium measurement (moles/volume) 4.0 mmol/L 3.6-5.0 Serum or plasma chloride measurement (moles/volume) 105 mmol/L 98-107 Carbon dioxide 23 mmol/L 21-32 Serum or plasma anion gap determination (moles/volume) 11 mmol/L 5-14 Serum or plasma urea nitrogen measurement (mass/volume) 16 mg/dL 7-18 Serum or plasma creatinine measurement (mass/volume) 1.24 mg/dL 0.60-1.30 Serum or plasma urea nitrogen/creatinine mass ratio 13 NRG Serum or plasma creatinine measurement with calculation of estimated glomerular filtration rate 42 NRG Serum or plasma glucose measurement (mass/volume) 100 mg/dL 70-105 Serum or plasma calcium measurement (mass/volume) 10.0 mg/dL 8.5-10.1 Serum or plasma total bilirubin measurement (mass/volume) 1.4 mg/dL 0.1-1.0 Serum or plasma alkaline phosphatase measurement (enzymatic activity/volume) 105 U/L 40-136 Serum or plasma aspartate aminotransferase measurement (enzymatic activity/volume) 18 U/L 5-34 Serum or plasma alanine aminotransferase measurement (enzymatic activity/volume) 10 U/L 0-55 Serum or plasma protein measurement (mass/volume) 7.1 g/dL 6.4-8.2 Serum or plasma albumin measurement (mass/volume) 4.3 g/dL 3.2-4.5 CALCIUM CORRECTED 9.8 mg/dL 8.5-10.1 Automated blood complete blood count (hemogram) panel - 02/10/19 02:55 Blood leukocytes automated count (number/volume) 5.4 10*3/uL 4.3-11.0 Blood erythrocytes automated count (number/volume) 3.83 10*6/uL 4.35-5.85 Venous blood hemoglobin measurement (mass/volume) 11.4 g/dL 11.5-16.0 Blood hematocrit (volume fraction) 35 % 35-52 Automated erythrocyte mean corpuscular volume 91 [foz_us] 80-99 Automated erythrocyte mean corpuscular hemoglobin (mass per erythrocyte) 30 pg 25-34 Automated erythrocyte mean corpuscular hemoglobin concentration measurement (mass/volume) 33 g/dL 32-36 Automated erythrocyte distribution width ratio 13.7 % 10.0- 14.5 Automated blood platelet count (count/volume) 177 10*3/uL 130-400 Automated blood platelet mean volume measurement 9.9 [foz_us] 7.4-10.4 Whole blood basic metabolic panel - 02/10/19 02:55 Serum or plasma sodium measurement (moles/volume) 139 mmol/L 135-145 Serum or plasma potassium measurement (moles/volume) 3.9 mmol/L 3.6-5.0 Serum or plasma chloride measurement (moles/volume) 111 mmol/L 98-107 Carbon dioxide 18 mmol/L 21-32 Serum or plasma anion gap determination (moles/volume) 10 mmol/L 5-14 Serum or plasma urea nitrogen measurement (mass/volume) 9 mg/dL 7-18 Serum or plasma creatinine measurement (mass/volume) 0.89 mg/dL 0.60-1.30 Serum or plasma urea nitrogen/creatinine mass ratio 10 NRG Serum or plasma creatinine measurement with calculation of estimated glomerular filtration rate > NRG Serum or plasma glucose measurement (mass/volume) 92 mg/dL 70-105 Serum or plasma calcium measurement (mass/volume) 8.2 mg/dL 8.5-10.1 Encounters ACCT No. Visit Date/Time Discharge Status Pt. Type Provider Facility Loc./Unit Complaint [id number] 11/18/2018 14:02:00 11/18/2018 23:59:00 DIS Outpatient Josh Wu [id number] 11/06/2018 07:56:00 11/06/2018 10:00:[id number] 01/[facility]/2017 06:35:00 01/05/2017 23:59:00 DIS Outpatient Joselin Juarez [id number] 12/06/2016 12:39:00 12/06/2016 23:59:00 DIS Outpatient Jose Ruano [id number] 12/25/2018 07:39:00 12/25/2018 11:22:00 DIS Outpatient Brooklyn KUHN MD [facility] CATH SYMPTOMATIC ATRIAL FLUTTER [id number] 12/18/2018 06:37:00 12/18/2018 23:59:59 CLS Outpatient Brooklyn KUHN MD [facility] CARD SYMPTOMATIC ATRIAL FLUTTER [id number] 12/16/2018 08:29:00 12/16/2018 23:59:59 CLS Outpatient Brooklyn KUHN MD [facility] CARD TYPICAL ATRIAL FLUTTER [id number] 12/11/2018 07:37:00 12/11/2018 23:59:59 CLS Outpatient Brooklyn KUHN MD [facility] CATH SYMPTOMATIC AFIB [id number] 12/02/2018 10:39:00 12/02/2018 23:59:59 CLS Preadmit Brooklyn KUHN MD [facility] CARD TYPICAL ATRIAL FLUTTER [id number] 12/02/2018 10:37:00 12/02/2018 23:59:59 CLS Preadmit Brooklyn KUHN MD [facility] CARD TYPICAL ATRIAL FLUTTER [id number] 02/09/2019 06:55:00 ACT Outpatient Brooklyn KUHN MD [facility] ICU TYPICAL ATRIAL FLUTTER
--- NOTE | 2019-02-11 12:59 | Cardiology Discharge Summary ---
Diagnosis/Chief Complaint Date of Admission 02/09/2019 Date of Discharge 02/11/2019 Admission Diagnosis Typical atrial flutter, paroxysmal atrial fibrillation with rapid ventricular rate Final/Discharge Diagnosis Typical atrial flutter, status post successful ablation, Atrial fibrillation with controlled ventricular rate Chief Complaint/HPI Chief Complaint/HPI this is a 79-year-old lady who has been referred by Dr. Wu for atrial fibrillation with rapid ventricular rate. The patient has history of paroxysmal atrial fibrillation for 7-8 years and was on antiarrhythmic therapy. She was started on oral anticoagulation therapy on 11/09/2018. EKG dated 12/02/2018 from the office shows typical atrial flutter. Typical atrial flutter ablation was recommended. If the patient is refractory to antiarrhythmic therapy she will be considered class I indication for atrial fibrillation ablation in the future. Discharge Summary Procedures Typical atrial flutter ablation done on 02/09/2019. Unsuccessful cardioversion done on 02/11/2019. Discharge Physical Examination Unremarkable. Hospital Course Was the Problem List Reviewed?: Yes Typical atrial flutter ablation was successfully done on 02/09/2019. Patient went into paroxysmal atrial fibrillation with rapid ventricular rate on 02/10/2019. Cardizem infusion was started however the patient continued to be in atrial fibrillation until the morning of 02/11/2019. Cardioversion was attempted 3 times with 200 J which was unsuccessful. Therefore the patient will be discharged on uninterrupted oral anticoagulation, Cardizem and multaq. Discussion & Recommendations Discussion Patient will be discharged on Cardizem, multaq and oral anticoagulation. I will see the patient in one week. Follow up appt.: Dr. Kuhn In 7-14 days. Dicharge Diet: Cardiac Diet Activity as Tolerated: Yes Home Medications Reviewed patient Home Medication Reconciliation performed by pharmacy medication reconciliations cable installation technician and/or nursing. Patients Allergies have been reviewed. Discharge Home Medications: Reviewed and agree with Discharge Medication list on patient's Discharge Instruction sheet Condition at discharge Stable. Instructions to patient/family Will be provided to the patient and family. Clinical Quality Measures DVT/VTE Risk/Contraindication: Risk Factor Score Per Nursin RFS Level Per Nursing on Admit: 1=Low/No VTE PPX Brooklyn KUHN MD Feb 11, 2019 12:59
--- NOTE | 2019-02-11 13:00 | Discharge Inst-Post CATH ---
Discharge Inst-CATH/EP Post Cardiac Cath/EP D/C Inst Follow Up/Plan Dr. Siegel in one to 2 weeks. <b>CARDIAC CATH/EP PROCEDURE DISCHARGE INSTRUCTIONS</b> ACTIVITY * Go Home directly and rest. * Limit activity of the leg (or wrist if it was used) for 7 days including aerobics, swimming, jogging, bicycling, etc. * Restrict stair-climbing for 7 days if possible, if not, climb up with your non-cath leg, then bring together on the same step. * Avoid lifting, pushing, pulling or excessive movement of the affected extremity for 7 days. * Customary sexual activity may be resumed after 2 days-use caution not to use a position that strains or causes pain to the affected extremity. * No driving for 24 hours. * NO SMOKING. * Avoid straining for bowel movements for 7 days. * Gentle walking on level ground is allowed. * Returning to work will depend on the type of procedure and the results. Your doctor will discuss this with you. CALL YOUR DOCTOR FOR ANY OF THE FOLLOWING: *If bleeding from the puncture site occurs- Apply gentle pressure to site with clean cloth and call your doctor or EMS. * If a knot or lump forms under the skin, increases in size, or causes pain. * If bruising appears to be worsening or moving further down your leg instead of disappearing. * Temperature above 101 F. CARE OF YOUR GROIN INCISION; * Bruising or purple discoloration of the skin near the puncture site is common. * You may shower only, no bathtub bathing for 5 days. Be careful to avoid slipping as your leg may feel stiff. * If a closure device was used on your femoral artery, please see the attached guide regarding care of the device and your leg. * Leave dressing on FOR 24 hours. CARE OF YOUR WRIST INCISION; * Bruising or purple discoloration of the skin near the puncture site is common. * You may shower. * DO NOT submerge wrist. * Leave dressing on FOR 24 hours. Brooklyn SIEGEL MD Feb 11, 2019 13:00
== END 2019-02-11 11:30 | disposition home or self-care (01) | DRG 274 ==
LOC: CATH 06:55 → ICU 13:29 → CATH 02-11 09:45 → ICU 02-11 09:45
PROVIDERS: ADMIT Internal Medicine Interventional Cardiology; ATTEND Internal Medicine Interventional Cardiology
PROC: 02563ZZ Destruction of Right Atrium, Percutaneous Approach (ICD-10-PCS; principal; 2019-02-09)
PROC: 5A2204Z Restoration of Cardiac Rhythm, Single (ICD-10-PCS; 2019-02-11)
DX: I48.92 Unspecified atrial flutter (principal); I48.0 Paroxysmal atrial fibrillation; I10 Essential (primary) hypertension; Z86.73 Personal history of transient ischemic attack (TIA), and cerebral infarction without residual deficits
CPT/HCPCS: 36415; 80053; 85027; 85610; 85730; 87081; 92960; 93005; 93613; 93620; 93621; 93623; 93653

== ENCOUNTER 2019-03-22 08:34 | Emergency (ER) | payer MEDICARE, OTHER ==
[~2019-03-22] VITALS: Ht 166.4 cm; Wt 74.0 kg
--- OUTSIDE RECORDS SUMMARY | 2019-03-22 08:38 | XMS REPORT | Continuity of Care Document ---
Author Organization Unknown Address Unknown Phone Unavailable Allergies Active Description Code Type Severity Reaction Onset Reported/Identified Relationship to Patient Clinical Status Yes NO KNOWN DRUG ALLERGIES UNKNOWN NO KNOWN DRUG ALLERG Yes No Known Drug Allergies [id number] Drug Allergy Unknown N/A 12/11/2018 Medications There [...] ROBERT BRYAN Mary R29.810 FACIAL WEAKNESS 12/15/2018 Brooklyn KUHN MD Ot I10 ESSENTIAL (PRIMARY) HYPERTENSION 12/15/2018 Brooklyn KUHN MD Ot I48.0 PAROXYSMAL ATRIAL FIBRILLATION 12/15/2018 Brooklyn KUHN MD Ot I48.3 TYPICAL ATRIAL FLUTTER 12/15/2018 Brooklyn KUHN MD Ot Z79.01 SHELTER (CURRENT) USE OF ANTICOAGULANT 12/15/2018 Brooklyn KUHN MD Ot Z79.82 BULLARD OPERATOR (CURRENT) USE OF ASPIRIN 12/15/2018 Brooklyn KUHN MD Ot Z79.899 OTHER SHELTER (CURRENT) DRUG THERAPY 12/15/2018 Brooklyn KUHN MD Ot Z86.73 PRSNL HX OF TIA (TIA), AND CEREB INFRC W 12/17/2018 Brooklyn KUHN MD Ot I10 ESSENTIAL (PRIMARY) HYPERTENSION 12/17/2018 Brooklyn KUHN MD Ot I48.0 PAROXYSMAL ATRIAL FIBRILLATION 12/17/2018 Brooklyn KUHN MD Ot I48.3 TYPICAL ATRIAL FLUTTER 12/17/2018 Brooklyn KUHN MD Ot Z79.01 BULLARD OPERATOR (CURRENT) USE OF ANTICOAGULANT 12/17/2018 Brooklyn KUHN MD Ot Z79.82 SHELTER (CURRENT) USE OF ASPIRIN 12/17/2018 Brooklyn KUHN MD Ot Z79.899 OTHER SHELTER (CURRENT) DRUG THERAPY 12/17/2018 Brooklyn KUHN MD Ot Z86.73 PRSNL HX OF TIA (TIA), AND CEREB INFRC W 12/17/2018 Brooklyn KUHN MD Ot I10 ESSENTIAL (PRIMARY) HYPERTENSION 12/17/2018 Brooklyn KUHN MD Ot I48.0 PAROXYSMAL ATRIAL FIBRILLATION 12/17/2018 Brooklyn KUHN MD Ot I48.3 TYPICAL ATRIAL FLUTTER 12/17/2018 Brooklyn KUHN MD Ot Z79.01 BULLARD OPERATOR (CURRENT) USE OF ANTICOAGULANT 12/17/2018 Brooklyn KUHN MD Ot Z79.82 SHELTER (CURRENT) USE OF ASPIRIN 12/17/2018 Brooklyn KUHN MD Ot Z79.899 OTHER BULLARD OPERATOR (CURRENT) DRUG THERAPY 12/17/2018 Brooklyn KUHN MD Ot Z86.73 PRSNL HX OF TIA (TIA), AND CEREB INFRC W 12/17/2018 Brooklyn KUHN MD Ot I10 ESSENTIAL (PRIMARY) HYPERTENSION 12/17/2018 Brooklyn KUHN MD Ot I48.0 PAROXYSMAL ATRIAL FIBRILLATION 12/17/2018 Brooklyn KUHN MD Ot I48.3 TYPICAL ATRIAL FLUTTER 12/17/2018 Brooklyn KUHN MD Ot Z79.01 BULLARD OPERATOR (CURRENT) USE OF ANTICOAGULANT 12/17/2018 Brooklyn KUHN MD Ot Z79.82 SHELTER (CURRENT) USE OF ASPIRIN 12/17/2018 Brooklyn KUHN MD Ot Z79.899 OTHER SHELTER (CURRENT) DRUG THERAPY 12/17/2018 Brooklyn KUHN MD, [...] FLUTTER 12/25/2018 Brooklyn KUHN MD Ot Z79.01 BULLARD OPERATOR (CURRENT) USE OF ANTICOAGULANT 12/25/2018 Brooklyn KUHN MD Ot Z79.899 OTHER BULLARD OPERATOR (CURRENT) DRUG THERAPY 12/25/2018 Brooklyn KUHN MD Ot Z86.73 PRSNL HX OF TIA (TIA), AND CEREB INFRC W 12/30/2018 Brooklyn KUHN MD Ot I10 ESSENTIAL (PRIMARY) HYPERTENSION 12/30/2018 Brooklyn KUHN MD Ot I48.0 PAROXYSMAL ATRIAL FIBRILLATION 12/30/2018 Brooklyn KUHN MD Ot I48.3 TYPICAL ATRIAL FLUTTER 12/30/2018 Brooklyn KUHN MD Ot Z79.01 BULLARD OPERATOR (CURRENT) USE OF ANTICOAGULANT 12/30/2018 Brooklyn KUHN MD Ot Z79.899 OTHER BULLARD OPERATOR (CURRENT) DRUG THERAPY 12/30/2018 Brooklyn KUHN MD [...] FLUTTER 01/08/2019 Brooklyn KUHN MD Ot Z79.01 SHELTER (CURRENT) USE OF ANTICOAGULANT 01/08/2019 Brooklyn KUHN MD Ot Z79.82 BULLARD OPERATOR (CURRENT) USE OF ASPIRIN 01/08/2019 Brooklyn KUHN MD Ot Z79.899 OTHER BULLARD OPERATOR (CURRENT) DRUG THERAPY 01/08/2019 Brooklyn KUHN MD, Ot Z86.73 PRSNL HX OF TIA (TIA), AND CEREB INFRC W 01/09/2019 Brooklyn KUHN MD, Ot I10 ESSENTIAL (PRIMARY) HYPERTENSION 01/09/2019 Brooklyn KUHN MD, Ot I48.1 PERSISTENT ATRIAL FIBRILLATION 01/09/2019 Brooklyn KUHN MD Ot I48.3 TYPICAL ATRIAL FLUTTER 01/09/2019 Brooklyn KUHN MD Ot I63.9 CEREBRAL INFARCTION, UNSPECIFIED 01/09/2019 Brooklyn KUHN MD Ot R06.02 SHORTNESS OF BREATH 02/11/2019 Brooklyn KUHN MD, Ot I10 ESSENTIAL (PRIMARY) HYPERTENSION 02/11/2019 Brooklyn KUHN MD, Ot I48.0 PAROXYSMAL ATRIAL FIBRILLATION 02/11/2019 Brooklyn KUHN MD, Ot I48.92 UNSPECIFIED ATRIAL FLUTTER 02/11/2019 Brooklyn KUHN MD, Ot Z86.73 PRSNL HX OF TIA (TIA), AND CEREB INFRC W Procedures Code Description Performed By Performed On [id number] DESTRUCTION OF RIGHT ATRIUM, PERCUTANEOU 02/09/2019 [id number] BAPTISM OF CARDIAC RHYTHM, SINGLE 02/11/2019 Results Test Result Range EKG - 12/06/16 [...] 5-8.5 Urine-Protein Negative Negative Urine-RBC Negative Urine-Specific [place] 1.010 1.000-1.030 Urine-WBC Negative Urobilinogen 0.2 E.U./dL [...] calculation of estimated glomerular filtration rate 42 NR Serum or plasma glucose measurement (mass/volume) 100 [...] g/dL 3.2-4.5 CALCIUM CORRECTED 9.8 mg/dL 8.5-10.1 Methicillin resistant Staphylococcus aureus (MRSA) screening culture - 02/09/19 07:15 Methicillin resistant Staphylococcus aureus (MRSA) screening culture NEG [facility] Automated blood complete blood count (hemogram) panel [...] Status Pt. Type Provider Facility Loc./Unit Complaint [id number] 11/18/2018 14:02:00 11/18/2018 23:59:00 DIS Outpatient Josh Wu [id number] 11/06/2018 07:56:00 11/06/2018 10:00:00 [id number]/2017 06:35:00 01/05/2017 23:59:00 DIS Outpatient Joselin Juarez [id number] 12/06/2016 12:39:00 12/06/2016 23:59:00 DIS Outpatient Jose Ruano [id number] 02/11/2019 09:50:00 02/11/2019 11:30:00 DIS Inpatient Brooklyn KUHN MD [facility] ICU TYPICAL ATRIAL FLUTTER [id number] 12/25/2018 07:39:00 12/25/2018 11:22:00 DIS Outpatient Brooklyn KUHN MD [facility] CATH SYMPTOMATIC ATRIAL FLUTTER [id number] 12/18/2018 06:37:00 12/18/2018 23:59:59 CLS Outpatient Brooklyn KUHN MD [facility] CARD SYMPTOMATIC ATRIAL FLUTTER [id number] 12/16/2018 08:29:00 12/16/2018 23:59:59 CLS Outpatient Brooklyn KUHN MD [facility] CARD TYPICAL ATRIAL FLUTTER [id number] 12/11/2018 07:37:00 12/11/2018 23:59:59 CLS Outpatient Brooklyn KUHN MD [facility] CATH SYMPTOMATIC AFIB [id number] 12/02/2018 10:39:00 12/02/2018 23:59:59 CLS Preadmit Brooklyn KUHN MD [facility] CARD TYPICAL ATRIAL FLUTTER [id number] 12/02/2018 10:37:00 12/02/2018 23:59:59 CLS Preadmit Brooklyn KUHN MD [facility] CARD TYPICAL ATRIAL FLUTTER
[2019-03-22] MEDS ORDERED: NS IV 1000 ML 1,000 ML IV SCH (09:00)
[2019-03-22] MEDS ORDERED: FUROSEMIDE 40 MG/4 ML INJ (LASIX) IVP ONE (09:00)
--- NOTE | 2019-03-22 09:08 | ED General ---
General Chief Complaint: General Problems/Pain Stated Complaint: WATER RENTENTION Nursing Triage Note: Patient reports bilateral lower extremity swelling x 1 month and has gained 12 pounds. patient reports taking an over the counter water pill without help Nursing Sepsis Screen: No Definite Risk Source of Information: Patient, Family Exam Limitations: No Limitations History of Present Illness Date Seen by Provider: Mar 22, 2019 Time Seen by Provider: 09:04 Initial Comments This 79-year-old white female presents with a 12 pound retention of fluids over the last month. Patient is a history of long-standing A. fib. She has been on Cardizem with marginal response. The patient denies chest pain, fever chills or productive cough, nausea vomiting or diarrhea. The patient's edema has been primarily in the lower extremities. The patient's exercise tolerance has been diminished. Patient is under the care of Dr. Siegel. Allergies and Home Medications Allergies Coded Allergies: No Known Drug Allergies (Unverified , 12/11/18) Home Medications Apixaban 5 Mg Tab.ds.pk, 5 MG PO BID, (Reported) Aspirin 81 Mg Tablet.dr, 81 MG PO HS, (Reported) Diltiazem HCl 240 Mg Cap.er.24h, 240 MG PO DAILY, (Reported) Dronedarone HCl 400 Mg Tablet, 400 MG PO BID Prescribed by: MAGALIS BLAIR on 02/11/19 0932 Latanoprost/Pf 7.5 Ml Drops, 1 DROP OP HS, (Reported) Netarsudil Mesylate 2.5 Ml Drops, 1 DROP OP HS, (Reported) Pantoprazole Sodium 40 Mg Tablet.dr, 40 MG PO DAILY, (Reported) Patient Home Medication List Home Medication List Reviewed: Yes Review of Systems Review of Systems Constitutional: No chills, No fever EENTM: No hearing loss Respiratory: No cough Cardiovascular: No chest pain, No palpitations Gastrointestinal: No abdominal pain, No nausea, No vomiting Genitourinary: No decreased output, No dysuria, No frequency Musculoskeletal: no symptoms reported Skin: No change in color; other (peripheral edema) Psychiatric/Neurological: No Symptoms Reported Hematologic/Lymphatic: No Symptoms Reported Immunological/Allergic: no symptoms reported Past Sbincav-Bmsxsn-Gojycd Hx Past Med/Social Hx: Reviewed Nursing Past Med/Soc Hx Patient Social History Alcohol Use: Denies Use Recreational Drug Use: No Smoking Status: Never a Smoker 2nd Hand Smoke Exposure: No Recent Foreign Travel: No Contact w/Someone Who Travel: No Recent Infectious Disease Expo: No Recent Hopitalizations: No Immunizations Up To Date Date of Pneumonia Vaccine: December 11, 1996 Past Medical History Surgeries: Yes Section, Joint Replacement Respiratory: No Cardiac: Yes Atrial Fibrillation Neurological: Yes Stroke Genitourinary: No Gastrointestinal: Yes Gastroesophageal Reflux, Hemorrhoids Endocrine: No Cancer: No Blood Disorders: No Adverse Reaction/Blood Tranf: No Family Medical History Cardiovascular disease G8 BROTHER FH: cancer 19 MOTHER Physical Exam Vital Signs Vital Signs - First Documented 03/22/19 08:44 Temp 98.5 Pulse 92 Resp 18 B/P (MAP) 132/90 (104) Pulse Ox 96 Capillary Refill : Less Than 3 Seconds Height, Weight, BMI Height: 5'5.50" Weight: 163lbs. 0.6oz. [id number]; 22.9 BMI Method:Stated General Appearance: No Apparent Distress, WD/WN Eyes: Bilateral Eye Normal Inspection HEENT: Normal ENT Inspection Neck: Normal Inspection Respiratory: Decreased Breath Sounds Cardiovascular: Regular Rate, Rhythm Gastrointestinal: Normal Bowel Sounds Back: Normal Inspection Extremity: Pedal Edema (3+ both lower extremities) Neurologic/Psychiatric: Oriented x3, No Motor/Sensory Deficits, Normal Mood/Affect Progress/Results/Core Measures Suspected Sepsis Recent Fever Within 48 Hours: No Infection Criteria Present: None New/Unexplained Altered Menta: No Sepsis Screen: No Definite Risk SIRS Temperature:98.5 Pulse: 92 Respiratory Rate: 18 Laboratory Tests 03/22/19 09:30: White Blood Count 5.5 Blood Pressure 132 /90 Mean: 104 Laboratory Tests 03/22/19 09:30: Creatinine 1.18, Platelet Count 233, Total Bilirubin 1.1H Results/Orders Lab Results Laboratory Tests Test 03/22/19 09:30 03/22/19 10:05 Range/Units White Blood Count 5.5 4.3-11.0 10^3/uL Red Blood Count 3.75 L 4.35-5.85 10^6/uL Hemoglobin 11.3 L 11.5-16.0 G/DL Hematocrit 33 L 35-52 % Mean Corpuscular Volume 87 80-99 FL Mean Corpuscular Hemoglobin 30 25-34 PG Mean Corpuscular Hemoglobin Concent 35 32-36 G/DL Red Cell Distribution Width 13.8 10.0-14.5 % Platelet Count 233 130-400 10^3/uL Mean Platelet Volume 9.6 7.4-10.4 FL Neutrophils (%) (Auto) 80 H 42-75 % Lymphocytes (%) (Auto) 7 L 12-44 % Monocytes (%) (Auto) 10 0-12 % Eosinophils (%) (Auto) 3 0-10 % Basophils (%) (Auto) 1 0-10 % Neutrophils # (Auto) 4.4 1.8-7.8 X 10^3 Lymphocytes # (Auto) 0.4 L 1.0-4.0 X 10^3 Monocytes # (Auto) 0.5 0.0-1.0 X 10^3 Eosinophils # (Auto) 0.1 0.0-0.3 10^3/uL Basophils # (Auto) 0.0 0.0-0.1 10^3/uL Neutrophils % (Manual) 82 % Lymphocytes % (Manual) 6 % Monocytes % (Manual) 10 % Eosinophils % (Manual) 1 % Basophils % (Manual) 1 % Band Neutrophils 0 % Blood Morphology Comment NORMAL Sodium Level 126 L 135-145 MMOL/L Potassium Level 4.2 3.6-5.0 MMOL/L Chloride Level 97 L 98-107 MMOL/L Carbon Dioxide Level 18 L 21-32 MMOL/L Anion Gap 11 5-14 MMOL/L Blood Urea Nitrogen 10 7-18 MG/DL Creatinine 1.18 0.60-1.30 MG/DL Estimat Glomerular Filtration Rate 44 BUN/Creatinine Ratio 8 Glucose Level 109 H 70-105 MG/DL Calcium Level 9.1 8.5-10.1 MG/DL Corrected Calcium 9.3 8.5-10.1 MG/DL Total Bilirubin 1.1 H 0.1-1.0 MG/DL Aspartate Amino Transf (AST/SGOT) 28 5-34 U/L Alanine Aminotransferase (ALT/SGPT) 21 0-55 U/L Alkaline Phosphatase 138 H 40-136 U/L Troponin I < 0.028 <0.028 NG/ML B-Type Natriuretic Peptide 262.2 H <100.0 PG/ML Total Protein 6.5 6.4-8.2 GM/DL Albumin 3.8 3.2-4.5 GM/DL Urine Color YELLOW Urine Clarity CLEAR Urine pH 5 5-9 Urine Specific [place] 1.005 L 1.016-1.022 Urine Protein NEGATIVE NEGATIVE Urine Glucose (UA) NEGATIVE NEGATIVE Urine Ketones NEGATIVE NEGATIVE Urine Nitrite NEGATIVE NEGATIVE Urine Bilirubin NEGATIVE NEGATIVE Urine Urobilinogen NORMAL NORMAL MG/DL Urine Leukocyte Esterase NEGATIVE NEGATIVE Urine RBC (Auto) NEGATIVE NEGATIVE Urine RBC NONE /HPF Urine WBC NONE /HPF Urine Squamous Epithelial Cells NONE /HPF Urine Crystals NONE /LPF Urine Bacteria NEGATIVE /HPF Urine Casts NONE /LPF Urine Mucus NEGATIVE /LPF Urine Culture Indicated NO My Orders Orders - ANGELA BENJAMIN MD Troponin I (03/22/19 08:59) Ekg Tracing (03/22/19 08:59) Cbc With Automated Diff (03/22/19 08:59) Comprehensive Metabolic Panel (03/22/19 08:59) Ua Culture If Indicated (03/22/19 08:59) Chest 1 View, Ap/Pa Only (03/22/19 08:59) Ns Iv 1000 Ml (Sodium Chloride 0.9%) (03/22/19 09:00) Furosemide Injection (Lasix Injection) (03/22/19 09:00) BNP (03/22/19 09:08) Manual Differential (03/22/19 09:30) Medications Given in ED Current Medications Medications Dose Ordered Sig/Sixto Route Start Time Stop Time Status Last Admin Dose Admin Furosemide 40 mg ONCE ONCE IVP 03/22/19 09:00 03/22/19 09:03 DC 03/22/19 09:35 40 MG Vital Signs/I&O 03/22/19 08:44 Temp 98.5 Pulse 92 Resp 18 B/P (MAP) 132/90 (104) Pulse Ox 96 Capillary Refill : Less Than 3 Seconds Blood Pressure Mean: 104 Progress Note : Time: 10:37 Progress Note The patient's EKG demonstrated A. fib with a ventricular rate just slightly greater than 100. Patient's chest x-ray demonstrated moderate bilateral effusions consistent with CHF. The patient's BNP was approximately 240. Patient's CBC and CMP were unremarkable her troponin was normal. Patient was significantly improved with 40 mg of Lasix IV. I asked the patient to follow up closely with early this week. I gave her a prescription of 20 mg of Lasix daily for 10 days till she follows up with cardiology. She was asked to return if she had any further problems or questions. Departure Impression Primary Impression: CHF (congestive heart failure) Qualified Codes: I50.40 - Unspecified combined systolic (congestive) and diastolic (congestive) heart failure Disposition: 01 HOME, SELF-CARE Condition: Improved Departure-Patient Inst. Decision time for Depature: 10:41 Referrals: [place] SIEGEL MD, WEN-CHOU MD (PCP/Family) Primary Care Physician Patient Instructions: CHF Add. Discharge Instructions: Close follow-up with Dr. Siegel. Lasix 20 mg daily. In the [place] with potassium sources (arranges and bananas). Come back for any acute problems or questions. All discharge instructions reviewed with patient and/or family. Voiced understanding. Scripts Furosemide (Lasix) 20 Mg Tablet 20 MG PO DAILY, #10 TAB Prov: ANGELA BENJAMIN MD 03/22/19 ANGELA BENJAMIN MD Mar 22, 2019 09:08
--- NOTE | 2019-03-22 09:43 | Diagnostic Imaging Report ---
EXAMINATION: Portable AP chest obtained at 924h. INDICATION: Bilateral lower extremity swelling There are no prior studies available for comparison. The heart is enlarged and the central pulmonary vascularity is somewhat prominent. There is also a small amount of fluid in the right lung base and perhaps minimal fluid in the left lung base. The combination of these findings does suggest that there is an element of mild pulmonary congestion present. There is no consolidated pneumonia identified. The mediastinum is not widened. The osseous structures are intact. IMPRESSION: There is cardiomegaly, mild pulmonary congestion and small bilateral pleural effusions. A followup exam would be recommended for continued study. Dictated by: Dictated on workstation # [id number]
[2019-03-22 09:44] LABS: BASOPHILS % (AUTO) 1 % (0-10); EOSINOPHILS # (AUTO) 0.1 10^3/uL (0.0-0.3); EOSINOPHILS % (AUTO) 3 % (0-10); HEMATOCRIT 33 % (35-52); HEMOGLOBIN 11.3 G/DL (11.5-16.0); LYMPHOCYTES # (AUTO) 0.4 X 10^3 (1.0-4.0); LYMPHOCYTES % (AUTO) 7 % (12-44); MEAN CORPUSCULAR HEMOGLOBIN 30 PG (25-34); MEAN CORPUSCULAR HGB CONC 35 G/DL (32-36); MEAN CORPUSCULAR VOLUME 87 FL (80-99); MEAN PLATELET VOLUME 9.6 FL (7.4-10.4); MONOCYTES # (AUTO) 0.5 X 10^3 (0.0-1.0); MONOCYTES % (AUTO) 10 % (0-12); NEUTROPHILS # (AUTO) 4.4 X 10^3 (1.8-7.8); NEUTROPHILS % (AUTO) 80 % (42-75); PLATELET COUNT 233 10^3/uL (130-400); RED CELL DISTRIBUTION WIDTH 13.8 % (10.0-14.5); WHITE BLOOD COUNT 5.5 10^3/uL (4.3-11.0)
[2019-03-22 10:08] LABS: ALANINE AMINOTRANSFERASE 21 U/L (0-55); ALBUMIN 3.8 GM/DL (3.2-4.5); ALKALINE PHOSPHATASE 138 U/L (40-136); BILIRUBIN,TOTAL 1.1 MG/DL (0.1-1.0); BUN/CREATININE RATIO 8; CALCIUM 9.1 MG/DL (8.5-10.1); CARBON DIOXIDE 18 MMOL/L (21-32); CHLORIDE 97 MMOL/L (98-107); CREATININE SERUM 1.18 MG/DL (0.60-1.30); GFR ESTIMATED 44; GLUCOSE 109 MG/DL (70-105); POTASSIUM 4.2 MMOL/L (3.6-5.0); SODIUM 126 MMOL/L (135-145); TOTAL PROTEIN 6.5 GM/DL (6.4-8.2)
[2019-03-22 10:13] LABS: BAND NEUTROPHILS 0 %; BASOPHILS % (MANUAL) 1 %; EOSINOPHILS % (MANUAL) 1 %; LYMPHOCYTES % (MANUAL) 6 %; MONOCYTES % (MANUAL) 10 %; NEUTROPHILS % (MANUAL) 82 %
[2019-03-22 10:14] LABS: BILIRUBIN,URINE NEGATIVE (NEGATIVE); CLARITY,URINE CLEAR; COLOR,URINE YELLOW; GLUCOSE, URINE (UA) NEGATIVE (NEGATIVE); KETONES,URINE NEGATIVE (NEGATIVE); LEUKOCYTE ESTERASE ,URINE NEGATIVE (NEGATIVE); NITRITE,URINE NEGATIVE (NEGATIVE); PH,URINE 5 (5-9); PROTEIN,URINE NEGATIVE (NEGATIVE); UROBILINOGEN,URINE NORMAL (NORMAL)
[2019-03-22 10:14] LABS: RBC MORPH NORMAL
[2019-03-22 10:28] LABS: BACTERIA,URINE NEGATIVE /HPF
[2019-03-22] MEDS ORDERED: FURO-125 PO (10:43)
[2019-03-22 10:52] VITALS: BP 104/89
== END 2019-03-22 10:53 | disposition home or self-care (01) ==
LOC: EDUNIT# 08:34 → ER 08:34
DX: I50.9 Heart failure, unspecified (principal); I48.91 Unspecified atrial fibrillation; K21.9 Gastro-esophageal reflux disease without esophagitis; Z79.82 Long term (current) use of aspirin; Z86.73 Personal history of transient ischemic attack (TIA), and cerebral infarction without residual deficits; Z82.49 Family history of ischemic heart disease and other diseases of the circulatory system
CPT/HCPCS: 36415; 71045; 80053; 81000; 83880; 84484; 85007; 85027; 93005

== ENCOUNTER 2019-08-10 | Outpatient (RCR) | payer MEDICARE, OTHER ==
[~2019-08-10] MED LIST changes: +FURO-125 PO
== END 2019-10-18 | disposition home or self-care (01) ==
LOC: CARD
PROVIDERS: ATTEND Internal Medicine Interventional Cardiology
DX: I48.19 Other persistent atrial fibrillation (principal)

== ENCOUNTER 2021-01-24 15:32 | Observation (INO) | payer MEDICARE, OTHER ==
[~2021-01-24] VITALS: Ht 165 cm; Wt 71.5 kg
[~2021-01-24 15:32] MED LIST changes: +ASPI-1238 PO; -ASPI-983 PO; -DRON400T2 PO; +DRON400T6 PO; -PANT40TA3 PO; +PANT40TA52 PO
--- NOTE | 2021-01-24 16:18 | ED General ---
General Chief Complaint: Trauma-Non Activation Stated Complaint: FALL / SPEECH PROBLEMS / CONFUSION Source of Information: Patient Exam Limitations: No Limitations (MANUEL BARRAGAN MD) History of Present Illness Date Seen by Provider: Jan 24, 2021 Time Seen by Provider: 16:07 Initial Comments Patient is a 80-year-old female who presents to the emergency department today with a chief complaint of just not "acting right" per daughter. (MANUEL BARRAGAN MD) Initial Comments Patient with a history of 2-3 falls over the past week. She is on Eliquis for her atrial fibrillation. Known to Dr. Segal in [place]. (LULU ALVARADO) Allergies and Home Medications Allergies Coded Allergies: No Known Drug Allergies (Unverified , 12/11/18) Home Medications Apixaban 5 Mg Tab.ds.pk, 5 MG PO BID, (Reported) Aspirin 81 Mg Tablet.dr, 81 MG PO HS, (Reported) Diltiazem HCl 240 Mg Cap.er.24h, 240 MG PO DAILY, (Reported) Dronedarone HCl 400 Mg Tablet, 400 MG PO BID Prescribed by: MAGALIS BLAIR on 02/11/19 0932 Furosemide 20 Mg Tablet, 20 MG PO DAILY Prescribed by: ANGELA BENJAMIN MD on 03/22/19 1043 Latanoprost/Pf 7.5 Ml Drops, 1 DROP OP HS, (Reported) Netarsudil Mesylate 2.5 Ml Drops, 1 DROP OP HS, (Reported) Pantoprazole Sodium 40 Mg Tablet.dr, 40 MG PO DAILY, (Reported) Patient Home Medication List Home Medication List Reviewed: Yes (LULU ALVARADO) Review of Systems Review of Systems Constitutional: No chills, No diaphoresis EENTM: No ear discharge, No ear pain Respiratory: No cough, No short of breath Cardiovascular: No chest pain, No palpitations Gastrointestinal: No abdominal pain, No nausea Genitourinary: No discharge, No dysuria Musculoskeletal: back pain (chronic) Psychiatric/Neurological: See HPI; Denies Anxiety, Denies Depressed (LULU ALVARADO) All Other Systems Reviewed Negative Unless Noted: Yes (LULU ALVARADO) Past Obuzcyx-Mlhkem-Volasj Hx Patient Social History 2nd Hand Smoke Exposure: No Recent Hopitalizations: No (MANUEL BARRAGAN MD) Alcohol Use: Denies Use Smoking Status: Never a Smoker (LULU ALVARADO) Immunizations Up To Date Date of Pneumonia Vaccine: December 11, 1996 (MANUEL BARRAGAN MD) Past Medical History Surgeries: Yes Section, Joint Replacement Respiratory: No Cardiac: Yes Atrial Fibrillation Neurological: Yes Stroke Genitourinary: No Gastrointestinal: Yes Gastroesophageal Reflux, Hemorrhoids Endocrine: No Cancer: No Blood Disorders: No Adverse Reaction/Blood Tranf: No (MANUEL BARRAGAN MD) Family Medical History Cardiovascular disease G8 BROTHER FH: cancer 19 MOTHER Physical Exam Vital Signs Vital Signs - First Documented 01/24/21 15:40 Temp 36.4 Pulse 114 Resp 18 B/P (MAP) 139/96 (110) Pulse Ox 97 O2 Delivery Room Air (LULU ALVARADO) Vital Signs Capillary Refill : (MANUEL BARRAGAN MD) Height, Weight, BMI Height: 5'5.50" Weight: 163lbs. 0.6oz. [id number]; 22.9 BMI Method:Stated (MANUEL BARRAGAN MD) General Appearance: WD/WN, Mild Distress Eyes: Bilateral Eye Normal Inspection, Bilateral Eye PERRL, Bilateral Eye EOMI HEENT: PERRL/EOMI, Pharynx Normal; No Moist Mucous Membranes Neck: Full Range of Motion, Normal Inspection Respiratory: No Accessory Muscle Use, No Respiratory Distress Cardiovascular: Regular Rate, Rhythm, No Edema Gastrointestinal: Non Tender, Soft Extremity: Normal Capillary Refill, Normal Inspection Neurologic/Psychiatric: Alert, Oriented x3 Skin: Normal Color, Warm/Dry (LULU ALVARADO) Progress/Results/Core Measures Suspected Sepsis SIRS Temperature: Pulse: Respiratory Rate: Laboratory Tests 01/24/21 16:30: White Blood Count 6.6 Blood Pressure / Mean: Laboratory Tests 01/24/21 16:30: Creatinine 1.30, Platelet Count 228 (MANUEL BARRAGAN MD) Results/Orders Lab Results Laboratory Tests Test 01/24/21 16:30 01/24/21 17:53 Range/Units White Blood Count 6.6 4.3-11.0 10^3/uL Red Blood Count 3.96 3.80-5.11 10^6/uL Hemoglobin 12.4 11.5-16.0 g/dL Hematocrit 37 35-52 % Mean Corpuscular Volume 92 80-99 fL Mean Corpuscular Hemoglobin 31 25-34 pg Mean Corpuscular Hemoglobin Concent 34 32-36 g/dL Red Cell Distribution Width 13.6 10.0-14.5 % Platelet Count 228 130-400 10^3/uL Mean Platelet Volume 10.2 9.0-12.2 fL Immature Granulocyte % (Auto) 0 % Neutrophils (%) (Auto) 77 H 42-75 % Lymphocytes (%) (Auto) 9 L 12-44 % Monocytes (%) (Auto) 12 0-12 % Eosinophils (%) (Auto) 1 0-10 % Basophils (%) (Auto) 1 0-10 % Neutrophils # (Auto) 5.1 1.8-7.8 10^3/uL Lymphocytes # (Auto) 0.6 L 1.0-4.0 10^3/uL Monocytes # (Auto) 0.8 0.0-1.0 10^3/uL Eosinophils # (Auto) 0.1 0.0-0.3 10^3/uL Basophils # (Auto) 0.0 0.0-0.1 10^3/uL Immature Granulocyte # (Auto) 0.0 0.0-0.1 10^3/uL Sodium Level 138 135-145 MMOL/L Potassium Level 4.5 3.6-5.0 MMOL/L Chloride Level 103 98-107 MMOL/L Carbon Dioxide Level 23 21-32 MMOL/L Anion Gap 12 5-14 MMOL/L Blood Urea Nitrogen 21 H 7-18 MG/DL Creatinine 1.30 0.60-1.30 MG/DL Estimat Glomerular Filtration Rate 40 BUN/Creatinine Ratio 16 Glucose Level 112 H 70-105 MG/DL Calcium Level 9.4 8.5-10.1 MG/DL Urine Color YELLOW Urine Clarity CLEAR Urine pH 7.5 5-9 Urine Specific [place] 1.010 L 1.016-1.022 Urine Protein NEGATIVE NEGATIVE Urine Glucose (UA) NEGATIVE NEGATIVE Urine Ketones NEGATIVE NEGATIVE Urine Nitrite NEGATIVE NEGATIVE Urine Bilirubin NEGATIVE NEGATIVE Urine Urobilinogen 0.2 < = 1.0 MG/DL Urine Leukocyte Esterase NEGATIVE NEGATIVE Urine RBC (Auto) NEGATIVE NEGATIVE Urine RBC NONE /HPF Urine WBC 0-2 /HPF Urine Squamous Epithelial Cells 5-10 /HPF Urine Crystals NONE /LPF Urine Bacteria TRACE /HPF Urine Casts NONE /LPF Urine Mucus NEGATIVE /LPF Urine Culture Indicated NO (LULU ALVARADO) My Orders Orders - LULU ALVARADO Ed Iv/Invasive Line Start (01/24/21 18:28) Ns Iv 500 Ml (Sodium Chloride 0.9%) (01/24/21 18:30) Diltiazem Injection (Cardizem Injection) (01/24/21 18:30) (LULU ALVARADO) Vital Signs/I&O 01/24/21 15:40 Temp 36.4 Pulse 114 Resp 18 B/P (MAP) 139/96 (110) Pulse Ox 97 O2 Delivery Room Air (LULU ALVARADO) Vital Signs/I&O Capillary Refill : (MANUEL BARRAGAN MD) Progress Note : Time: 18:10 Progress Note Care passed to Dr. Alvarado at shift change with urinalysis pending and fluids infusing (MANUEL BARRAGAN MD) Progress Note : Time: 18:30 Progress Note Patient states she may feel a little bit better than when she arrived. Suspect some of her confusion is related to concussion from her falls. Plan an observation stay with another half liter of fluids after the first bolus and 10 mg of Cardizem to slow her heart rate down. No evidence of infection in the urine or on labs. (LULU ALVARADO) ECG Initial ECG Impression Date: Jan 24, 2021 Initial ECG Impression Time: 17:08 Initial ECG Rate: 122 Initial ECG Rhythm: A Fib/Flutter Initial ECG Impression: Atrial Fibrillation w/RVR (MANUEL BARRAGAN MD) Departure Communication (Admissions) Time/Spoke to Admitting Phy: 18:30 Discussed the case with Dr. Levin and she agrees to observe the patient with some IV fluids and Cardizem. (LULU ALVARADO) Impression Primary Impression: Falls frequently Additional Impressions: Confused but orients easily Concussion Qualified Codes: S06.0X0A - Concussion without loss of consciousness, initial encounter Disposition: 01 HOME, SELF-CARE Condition: Stable Admissions Decision to Admit Reason: Admit from ER (General) Decision to Admit/Date: Jan 24, 2021 Time/Decision to Admit Time: 18:30 (LULU ALVARADO) Departure-Patient Inst. Referrals: EM SEGAL MD (PCP) Primary Care Physician DINA YANG (Family) Primary Care Physician MANUEL BARRAGAN MD Jan 24, 2021 16:18 LULU ALVARADO Jan 24, 2021 18:28
[2021-01-24 16:38] LABS: BASOPHILS % (AUTO) 1 % (0-10); EOSINOPHILS # (AUTO) 0.1 10^3/uL (0.0-0.3); EOSINOPHILS % (AUTO) 1 % (0-10); HEMATOCRIT 37 % (35-52); HEMOGLOBIN 12.4 g/dL (11.5-16.0); LYMPHOCYTES # (AUTO) 0.6 10^3/uL (1.0-4.0); LYMPHOCYTES % (AUTO) 9 % (12-44); MEAN CORPUSCULAR HEMOGLOBIN 31 pg (25-34); MEAN CORPUSCULAR HGB CONC 34 g/dL (32-36); MEAN CORPUSCULAR VOLUME 92 fL (80-99); MEAN PLATELET VOLUME 10.2 fL (9.0-12.2); MONOCYTES # (AUTO) 0.8 10^3/uL (0.0-1.0); MONOCYTES % (AUTO) 12 % (0-12); NEUTROPHILS # (AUTO) 5.1 10^3/uL (1.8-7.8); NEUTROPHILS % (AUTO) 77 % (42-75); PLATELET COUNT 228 10^3/uL (130-400); WHITE BLOOD COUNT 6.6 10^3/uL (4.3-11.0)
[2021-01-24 16:47] LABS: POTASSIUM 4.5 MMOL/L (3.6-5.0)
[2021-01-24 16:49] LABS: CALCIUM 9.4 MG/DL (8.5-10.1)
[2021-01-24 16:53] LABS: CREATININE SERUM 1.3 MG/DL (0.60-1.30)
--- NOTE | 2021-01-24 16:57 | Diagnostic Imaging Report ---
INDICATION: Fall with trauma to the head. Altered mental status. Dysarthria. TECHNIQUE: Routine non contrast-enhanced axial images were obtained from the skull base to the vertex. Auto Exposure Controls were utilized during the CT exam to meet ALARA standards for radiation dose reduction COMPARISON: None. FINDINGS: The ventricles and cortical sulci are diffusely prominent, compatible with age-related volume loss. There are confluent areas of abnormal, low attenuation in the periventricular white matter. This is consistent with small vessel ischemic changes; age-indeterminate. There is no prior study available for comparison. There is no midline shift or mass-effect. No acute intra-axial hemorrhage is seen. There are no abnormal areas of increased or decreased density to suggest acute hemorrhage or edema. No extra-axial masses or collections are present. The bony calvarium is intact. The visualized paranasal sinuses show minimal scattered mucosal thickening. The mastoid air cells are clear. IMPRESSION: 1. No acute intracranial abnormality. No CT evidence of mass, acute infarct or intracranial hemorrhage. 2. Small vessel ischemic changes in the periventricular and subcortical white matter; likely chronic. Dictated by: Dictated on workstation # [id number]
[2021-01-24] MEDS: NS IV 500 ML 500 ML IV SCH (17:55)
[2021-01-24 18:01] LABS: BILIRUBIN,URINE NEGATIVE (NEGATIVE); CLARITY,URINE CLEAR; COLOR,URINE YELLOW; GLUCOSE, URINE (UA) NEGATIVE (NEGATIVE); KETONES,URINE NEGATIVE (NEGATIVE); LEUKOCYTE ESTERASE ,URINE NEGATIVE (NEGATIVE); NITRITE,URINE NEGATIVE (NEGATIVE); PH,URINE 7.5 (5-9); PROTEIN,URINE NEGATIVE (NEGATIVE)
[2021-01-24 18:09] LABS: BACTERIA,URINE TRACE /HPF; WBC,URINE 0-2 /HPF
[2021-01-24] MEDS ORDERED: NS IV 500 ML 500 ML IV ONE (18:30)
[2021-01-24 19:15] VITALS: BP 136/92
[2021-01-24] MEDS: LACTATED RINGERS 1,000 ML IV SCH (19:44)
[2021-01-24] MEDS ORDERED: fentaNYL INJ 100 MCG/2 ML AMP IVP PRN (19:45)
[2021-01-24] MEDS ORDERED: ONDANSETRON 4 MG/2 ML (SDV) Z0FRAN IVP PRN (19:45)
[2021-01-24 23:35] VITALS: BP 118/84
[2021-01-25 03:39] VITALS: BP 142/91
[2021-01-25 05:38] LABS: BASOPHILS # (AUTO) 0.1 10^3/uL (0.0-0.1); BASOPHILS % (AUTO) 1 % (0-10); EOSINOPHILS # (AUTO) 0.1 10^3/uL (0.0-0.3); EOSINOPHILS % (AUTO) 1 % (0-10); HEMATOCRIT 37 % (35-52); HEMOGLOBIN 12.5 g/dL (11.5-16.0); LYMPHOCYTES # (AUTO) 0.6 10^3/uL (1.0-4.0); LYMPHOCYTES % (AUTO) 8 % (12-44); MEAN CORPUSCULAR HEMOGLOBIN 31 pg (25-34); MEAN CORPUSCULAR HGB CONC 34 g/dL (32-36); MEAN CORPUSCULAR VOLUME 92 fL (80-99); MONOCYTES # (AUTO) 0.6 10^3/uL (0.0-1.0); MONOCYTES % (AUTO) 9 % (0-12); NEUTROPHILS % (AUTO) 81 % (42-75); PLATELET COUNT 214 10^3/uL (130-400); WHITE BLOOD COUNT 7.4 10^3/uL (4.3-11.0)
[2021-01-25] MEDS: LACTATED RINGERS 1,000 ML IV SCH ×2 (05:55→16:16)
[2021-01-25 05:57] LABS: CALCIUM 9.4 MG/DL (8.5-10.1)
[2021-01-25 06:01] LABS: CREATININE SERUM 1.06 MG/DL (0.60-1.30)
[2021-01-25 07:34] VITALS: BP 139/94
[2021-01-25] MEDS ORDERED: CYCL10TA9 PO (08:44)
[2021-01-25] MEDS ORDERED: DILT360T11 PO (08:44)
[2021-01-25] MEDS ORDERED: PSYL1PAC10 PO (08:44)
[2021-01-25] MEDS ORDERED: DOCU-143 PO (08:44)
[2021-01-25] MEDS ORDERED: POTA10TA6 PO (08:44)
[2021-01-25] MEDS ORDERED: MAGN400O7 PO (08:44)
[2021-01-25] MEDS ORDERED: TRAM50TA3 PO (08:44)
[2021-01-25] MEDS ORDERED: DRON400T6 PO (08:44)
[2021-01-25] MEDS ORDERED: FURO20TA4 PO (08:44)
[2021-01-25] MEDS ORDERED: LATA2.5D19 OU (08:44)
[2021-01-25] MEDS ORDERED: GABA-486 PO (08:44)
[2021-01-25] MEDS ORDERED: APIX5TAB PO (08:44)
[2021-01-25] MEDS ORDERED: SERT-412 PO (08:44)
[2021-01-25] MEDS ORDERED: METO50TA7 PO (08:44)
--- NOTE | 2021-01-25 08:57 | Physical Therapy Evaluation ---
PT Evaluation-General Medical Diagnosis Admission Date Jan 24, 2021 at 18:35 Medical Diagnosis: falls Onset Date: Jan 24, 2021 Therapy Diagnosis Therapy Diagnosis: impaired mobility, strength, endurance, balance Height/Weight Height (Feet): 5 Height (Inches): 5.50 Weight (Pounds): 163 Weight (Ounces): 0.6 Precautions Precautions/Isolations: Fall Prevention, Standard Precautions Referral Physician: Poonam Reason for Referral: Evaluation/Treatment Medical History Additional Medical History Past Medical History Surgeries: Yes Section, Joint Replacement Respiratory: No Cardiac: Yes Atrial Fibrillation Neurological: Yes Stroke Genitourinary: No Gastrointestinal: Yes Gastroesophageal Reflux, Hemorrhoids Current History Patient's family states she has had 4 falls recently. Reviewed History: Yes Social History Home: Halfway Prior Prior Level of Function SCALE: Activities may be completed with or without assistive devices. 9-Qwqzhgqgye-fbedqky completes the activity by him/herself with no assistance from a helper. 5-Set-up or Clean-up Assistance-helper sets up or cleans up; patient completes activity. [place] assists only prior to or following the activity. 4-Supervision or Touching Assistance-helper provides verbal cues and/or touching/steadying and/or contact guard assistance as patient completes activity. Assistance may be provided throughout the activity or intermittently. 3-Partial/Moderate Assistance-helper does LESS THAN HALF the effort. [place] lifts, holds or supports trunk or limbs, but provides less than half the effort. 2-Substantial/Maximal Assistance-helper does MORE THAN HALF the effort. [place] lifts or holds trunk or limbs and provides more than half the effort. 6-Nujzycbxz-vbsojm does ALL the effort. Patient does none of the effort to complete the activity. Or, the assistance of 2 or more helpers is required for the patient to complete the activity. If activity was not attempted, code reason: 7-Patient Refused. 9-Not Applicable-not attempted and the patient did not perform the activity before the current illness, exacerbation or injury. 10-Not Attempted due to Environmental Limitations-(lack of equipment, weather restraints, etc.). 88-Not Attempted due to Medical Conditions or Safety Concerns. Bed Mobility: 6 Transfers (B,C,W/C): 3 Gait: 3 Indoor Mobility (Ambulation): Needed Some Help Patient's family states she has mostly been in a WC at the skilled nursing recently, with a little walking with a walker. PT Evaluation-Current Subjective Patient in bed pre tx, agrees to PT, has no complaints of pain at rest. Pt/Family Goals "to get stronger" Objective Patient Orientation: Person, Confused ROM/Strength ROM Lower Extremities WNL Strength Lower Extremities LLE (hip flexion 3/5, knee flexion 4/5, knee extension 4/5, dorsiflexion 5/5), RLE (hip flexion 3/5, knee flexion 4/5, knee extension 4/5, dorsiflexion 4/5) Sensory Hearing: Functional Sensation Right Lower Extremit: Intact Sensation Left Lower Extremity: Intact Transfers Roll Left to Right (QC): 3 Lying to Sitting/Side of Bed(Q: 3 Sit to Stand (QC): 3 Chair/Qmt-zl-Aprac Xfer(QC): 4 Initially upon standing patient is a little retropulsive, leaning against bed but recovers after about 10 seconds and stands straight. Gait Does the Patient Walk?: Yes Mode of Locomotion: Walk Anticipated Mode of Locomotion: Walk Walk 10 feet (QC): 4 Distance: 20' Gait Assistive Device: FWW Comments/Gait Description Patient ambulates to the door and back to the recliner, CGA with a rolling walker, patient is somewhat unsteady but doesn't have a LOB, needs cues for positioning and safety. Balance Sitting Static: Normal Sitting Dynamic: Normal Standing Static: Fair Standing Dynamic: Fair Treatment seated BLE exercises x20 (AP, LAQ) Assessment/Needs Patient has impaired mobility, strength, endurance, balance. Patient in recliner post tx with nurse call, phone,tray, family in room, family instructed to tell nursing if they leave, patient also has a sitter. Patient needs close CGA when up ambulating. Rehab Potential: Fair PT Audio Video Repairer Goals Audio Video Repairer Goals PT Audio Video Repairer Goals Time Frame: Feb 01, 2021 Roll Left & Right (QC): 6 Sit to Lying (QC): 6 Lying-Sitting on Side/Bed(QC): 6 Sit to Stand (QC): 5 Chair/Ulv-ns-Qhmzz Xfer(QC): 5 Walk 10 feet (QC): 5 Walk 50ft with 2 Turns (QC): 5 PT Plan Problem List Problem List: Activity Tolerance, Functional Strength, Safety, Balance, Gait, Transfer, Bed Mobility, ROM Treatment/Plan Treatment Plan: Continue Plan of Care Treatment Plan: Bed Mobility, Education, Functional Activity Sammie, Functional Strength, Gait, Safety, Therapeutic Exercise, Transfers Treatment Duration: Feb 01, 2021 Frequency: 6 times per week Estimated Hrs Per Day: .25 hour per day Patient and/or Family Agrees t: Yes Safety Risks/Education Patient Education: Gait Training, Transfer Techniques, Correct Positioning, Safety Issues Teaching Recipient: Patient Teaching Methods: Demonstration, Discussion Response to Teaching: Reinforcement Needed Discharge Recommendations Plan Patient will perform bed mobility and transfer training, balance and endurance training, functional strengthening, gait training, and education, to improve functional mobility and independence at home. Therapy Discharge Recommendati: 24 Hour Supervision Time/GCodes Time In: 819 Time Out: 835 Total Billed Treatment Time: 16 Total Billed Treatment 1 visit DAVID MATIAS PT Jan 25, 2021 08:57
[2021-01-25] MEDS: NS IV 500 ML 500 ML IV SCH (09:05)
--- NOTE | 2021-01-25 10:29 | History & Physical-Hospitalist ---
History of Present Illness HPI/Chief Complaint Pt is a 80yoCF with a PMH of a fib, HTN and chronic back pain from spinal stenosis who presented to the ER due to falls. She had a fall roughly 3 weeks ago where she fell and hit her head. Her PCP attempted to get her in to IRU at that time but was unable to. Family then elected to admit her to [facility] for skilled care and 04/03 supervision. She has since suffered two more falls both times striking her head. Her family noticed with each one that she was more confused and not acting right so brought her in for evaluation. She had a negative CT but was found to be in a-fib with a heart rate in the 120as. She was admitted for her debility and poorly controlled a-fib. Her daughter reports that she has back surgery scheduled for 02/21 and needs a bone scan and was supposed to be seen by cardiology for any work up needed before that. She has had an ablation in the past but has recurrent a fib. She previously followed with Dr Siegel but has not seen a conference translator since he left practice here in [facility]. Source: patient Date Seen 01/25/21 Time Seen by a Provider: 10:25 Attending Physician Norah Levin MD PCP Jose Segal MD Referring Physician Date of Admission Jan 24, 2021 at 18:35 Home Medications & Allergies Home Medications Reviewed patient Home Medication Reconciliation performed by pharmacy medication reconciliations orthotics prosthetics technician and/or nursing. Patients Allergies have been reviewed. Allergies Allergies Coded Allergies No Known Drug Allergies (Unverified12/11/18) Past Ajlvpdg-Ovcafq-Ckiqcl Hx Patient Social History Employed/Student: retired Tobacco Use?: No Smoking Status: Never a Smoker Smokeless Tobacco Frequency: Never a User Substance use?: No Alcohol Use?: No Pt feels they are or have been: No Immunizations Up To Date Date of Pneumonia Vaccine: December 11, 1996 Current Status Advance Directives: No Communicates: Verbally Primary Language: Gibraltarian Preferred Spoken Language: Gibraltarian Is interpretation needed?: No Sensory deficits: Vision impairment Past Medical History Surgeries: Section, Joint Replacement Atrial Fibrillation, Hypertension Stroke Gastroesophageal Reflux, Hemorrhoids Blood Disorders: No Adverse Reaction/Blood Tranf: No Family Medical History Reviewed Nursing Family Hx Cardiovascular disease G8 BROTHER FH: cancer 19 MOTHER Review of Systems Constitutional: see HPI; No chills, No fever EENTM: no symptoms reported Respiratory: No cough, No short of breath Cardiovascular: No chest pain, No edema; Hx of Intervention, palpitations; No syncope Gastrointestinal: No abdominal pain, No constipation, No diarrhea, No nausea, No vomiting Genitourinary: no symptoms reported Musculoskeletal: no symptoms reported Skin: no symptoms reported Psychiatric/Neurological: See HPI Physical Exam Physical Exam Vital Signs Vital Signs - First Documented 01/24/21 15:40 Temp 36.4 Pulse 114 Resp 18 B/P (MAP) 139/96 (110) Pulse Ox 97 O2 Delivery Room Air Capillary Refill : Less Than 3 Seconds Height, Weight, BMI Height: 5'5.50" Weight: 163lbs. 0.6oz. 73.996900kh; 26.44 BMI Method:Stated General Appearance: No Apparent Distress, WD/WN HEENT: PERRL/EOMI, Moist Mucous Membranes; No Scleral Icterus (L), No Scleral Icterus (R) Neck: Normal Inspection, Supple Respiratory: Lungs Clear, No Accessory Muscle Use, No Respiratory Distress Cardiovascular: No Murmur, Irregularly Irregular, Tachycardia Gastrointestinal: Normal Bowel Sounds, Non Tender, Soft Extremity: No Calf Tenderness, No Pedal Edema Neurologic/Psychiatric: Alert, Oriented x3 (with some minor detail issues (surgery dates, medications)) Results Results/Procedures Labs Laboratory Tests 01/24/21 16:30 01/25/21 05:29 Patient resulted labs reviewed. Imaging: Reviewed Imaging Report Imaging [facility], [place] NAME: CARLOS DAVISON [facility] REC#: [id number] PT STATUS: ADM Gisela : 1940 PHYSICIAN: MANUEL BARRAGAN MD ADMIT DATE: 01/24/21 Signed Date of Exam:01/24/21 CT HEAD WO INDICATION: Fall with trauma to the head. Altered mental status. Dysarthria. TECHNIQUE: Routine non contrast-enhanced axial images were obtained from the skull base to the vertex. Auto Exposure Controls were utilized during the CT exam to meet ALARA standards for radiation dose reduction COMPARISON: None. FINDINGS: The ventricles and cortical sulci are diffusely prominent, compatible with age-related volume loss. There are confluent areas of abnormal, low attenuation in the periventricular white matter. This is consistent with small vessel ischemic changes; age-indeterminate. There is no prior study available for comparison. There is no midline shift or mass-effect. No acute intra-axial hemorrhage is seen. There are no abnormal areas of increased or decreased density to suggest acute hemorrhage or edema. No extra-axial masses or collections are present. The bony calvarium is intact. The visualized paranasal sinuses show minimal scattered mucosal thickening. The mastoid air cells are clear. IMPRESSION: 1. No acute intracranial abnormality. No CT evidence of mass, acute infarct or intracranial hemorrhage. 2. Small vessel ischemic changes in the periventricular and subcortical white matter; likely chronic. Dictated by: Dictated on workstation # [id number] Dict: 01/24/21 1651 Trans: 01/25/21 0952 [facility] [id number] Interpreted by: JAYME JOSÉ MD Electronically signed by: JAYME JOSÉ MD 01/25/21 0952 Assessment/Plan Admission Diagnosis Poorly contorlled a-fib Admission Status: Observation Assessment and Plan Poorly controlled a-fib Cardiology consulted, appreciate recs Resume home meds Resume Eliquis for now and so long as she will be supervised but may need to consider DC-ing with falls Falls Concussion PT/OT Family reports she needs 24/7 supervision due to impulsivity and falls Plan to DC back to NH when able Chronic back pain Plans to have surgery on 02/21 Discussed potential for IRU post op for rehab DVT ppx: Eliquis as above Diagnosis/Problems Diagnosis/Problems (1) Spinal stenosis (2) Falls frequently Status: Acute (3) Concussion Status: Acute Qualifiers: Encounter type: initial encounter Loss of consciousness presence/duration: without LOC Qualified Codes: S06.0X0A - Concussion without loss of consciousness, initial encounter (4) NORAH Lerma MD Jan 25, 2021 10:29
[2021-01-25] MEDS ORDERED: MILK OF MAGNESIA 400 MG/5 ML 30 ML UDC PO PRN (10:30)
[2021-01-25 11:01] VITALS: BP 142/91
[2021-01-25] MEDS ORDERED: RX-CYCLOBENZAPRINE 10 MG (FLEXERIL) TAB PPK#3 PO SCH (13:00)
[2021-01-25] MEDS: CYCLOBENZAPRINE 10 MG (FLEXERIL) TAB PO SCH ×2 (13:39→19:59)
[2021-01-25] MEDS: GABAPENTIN 100 MG (NEURONTIN) CAP PO SCH (13:39)
[2021-01-25] MEDS: APIXABAN 5 MG (ELIQUIS) TABLET PO SCH (13:39)
--- NOTE | 2021-01-25 14:19 | Occupational Therapy Eval ---
OT Evaluation-General/PLF Medical Diagnosis Admission Date Jan 24, 2021 at 18:35 Medical Diagnosis: falls Onset Date: Jan 24, 2021 Therapy Diagnosis Therapy Diagnosis: weakness, decreased ADL Status Height/Weight Height (Feet): 5 Height (Inches): 5.50 Weight (Pounds): 163 Weight (Ounces): 0.6 Precautions Precautions/Isolations: Fall Prevention, Standard Precautions Referral Physician: Poonam Referral Reason: Evaluation/Treatment Medical History Pertinent Medical History: Atrial Fib, CVA, GERD Current History Pt fell Saturday hitting her head, has had confusion and trouble speaking since. Fell again 01/24/21. Social History Home: Custodial ([facility]) ADL-Prior Level of Function SCALE: Activities may be completed with or without assistive devices. 5-Qsbdofnvcy-ybpszbr completes the activity by him/herself with no assistance from a helper. 5-Set-up or Clean-up Assistance-helper sets up or cleans up; patient completes activity. [place] assists only prior to or following the activity. 4-Supervision or Touching Assistance-helper provides verbal cues and/or touching/steadying and/or contact guard assistance as patient completes activity. Assistance may be provided throughout the activity or intermittently. 3-Partial/Moderate Assistance-helper does LESS THAN HALF the effort. [place] lifts, holds or supports trunk or limbs, but provides less than half the effort. 2-Substantial/Maximal Assistance-helper does MORE THAN HALF the effort. [place] lifts or holds trunk or limbs and provides more than half the effort. 2-Oiknqgvic-gubtzb does ALL the effort. Patient does none of the effort to complete the activity. Or, the assistance of 2 or more helpers is required for the patient to complete the activity. If activity was not attempted, code reason: 7-Patient Refused. 9-Not Applicable-not attempted and the patient did not perform the activity before the current illness, exacerbation or injury. 10-Not Attempted due to Environmental Limitations-(lack of equipment, weather restraints, etc.). 88-Not Attempted due to Medical Conditions or Safety Concerns. ADL PLOF Comments Pt indicates she lives at home alone and was independent with all ADLS and functional mobility using FWW. Upon further discussion with pt, she indicates this was prior to her stroke, unable to state when her stoke occurred or report her PLOF since her stroke. Per chart review, pt presents from [facility]. Pt's PLOF is unknown at this time. Self Care: Unknown Functional Cognition: Unknown OT Current Status Subjective Pt up in bathroom with nursing staff. Agreeable to OT evaluation and tx. Mental Status/Objective Patient Orientation: Person, Confused Current Glasses/Contacts: Yes Hand Dominance: Right Upper Extremity ROM WFL, BUE shouler flexion to approx 150 degrees Upper Extremity Coordination WFL Upper Extremity Sensation WFL Upper Extremity Strength grossly 3+/5 ADL-Treatment Eating (QC): 5 (set up per pt report, required assistance cutting food and opening containers) On/Off Footwear (QC): 3 (mod A, pt able to doff, assist to don bilateral gripper socks.) Toileting Hygiene (QC): 4 (CGA, pt able to complete hygiene and clothing management) Other Treatments Pt in bathroom completed toileting, then transferred to recliner. OT educated pt on purpose and benefit of OT. Pt attempted to provide information about PLOF and home set up, but this remains unknown at this time. Pt able to doff bilateral gripper socks, required assistance donning. OT educated pt on purpose and benefit of UE exercise in order to increase BUE strength and activity tolerance, she verbalized understanding. Pt completed x15 reps each BUE for the following: shoulder flexion, elbow flexion/extension, and finger flexion/extension. Post tx, pt seated in recliner, call light in reach and all needs met. Education OT Patient Education: Correct positioning, Exercise program, Modified ADL techniques, Progress toward Goal/Update tx plan, Purpose of tx/functional activities, Rehab process Teaching Recipient: Patient Teaching Methods: Discussion Response to Teaching: Verbalize Understanding OT Custodial Goals Custodial Goals Time Frame: Feb 03, 2021 Eating (QC): 6 Oral Hygiene (QC): 6 Toileting Hygiene (QC): 6 Shower/Bathe Self (QC): 4 Upper Body Dressing (QC): 5 Lower Body Dressing (QC): 4 On/Off Footwear (QC): 4 Additional Goals: 1-Demonstrate ADL Tasks, 2-Verbalize Understanding, 3- ImproveStrength/Sammie 1=Demonstrate adherence to instructed precautions during ADL tasks. 2=Patient will verbalize/demonstrate understanding of assistive devices/modifications for ADL. 3=Patient will improve strength/tolerance for activity to enable patient to perform ADL's. OT Education/Plan Problem List/Assessment Assessment: Decreased Activ Tolerance, Decreased UE Strength, Impaired Funct Balance, Impaired I ADL's, Impaired Self-Care Skills Discharge Recommendations Plan/Recommendations: Continue POC Treatment Plan/Plan of Care Patient would benefit from OT for education, treatment and training to promote independence in ADL's, mobility, safety and/or upper extremity function for ADL's. Plan of Care: ADL Retraining, Functional Mobility, UE Funct Exercise/Act Treatment Duration: Feb 03, 2021 Frequency: 5 times per week Estimated Hrs Per Day: .25 hour per day Rehab Potential: Fair Time/GCodes Start Time: 13:22 Stop Time: 13:38 Total Time Billed (hr/min): 16 Billed Treatment Time 1, SIMRAN RODRIGUEZ OT Jan 25, 2021 14:19
--- NOTE | 2021-01-25 14:36 | Consultation-Cardiology ---
HPI-Cardiology Cardiology Consultation Date of Consultation 01/25/21 Date of Admission Time Seen by Provider: 10:25 Indication: Afib with RVR HPI Patient is a 80 y/o female with history of persistent afib, aflutter s/p ablation, HTN. Presented to the ER with family's concern of increased falls over the past month. Denies any chest pain, dyspnea, dizziness or lightheadedness. Reports frequently feeling off balanced. Work up done in ER found patient to be in AFib with RVR. Home Medications & Allergies Allergies: Coded Allergies: No Known Drug Allergies (Unverified , 12/11/18) Home Medication List Reviewed: Yes XXX-Gphmii-Agtmap Hx Patient Social History Employed/Student: retired Recreational Drug Use: No Smoking Status: Never a Smoker 2nd Hand Smoke Exposure: No Recent Hopitalizations: No Have you traveled recently?: No Alcohol Use?: No Immunizations Up To Date Date of Pneumonia Vaccine: December 11, 1996 Past Medical History AFib/flutter, HTN Family Medical History Family History: Cardiovascular disease G8 BROTHER FH: cancer 19 MOTHER Review of Systems-General Review of Systems Constitutional: see HPI; No chills, No fever EENTM: see HPI, no symptoms reported Respiratory: see HPI; No cough, No dyspnea on exertion, No short of breath Cardiovascular: see HPI; No chest pain, No edema; Hx of Intervention, palpi tations; No syncope Gastrointestinal: No abdominal pain, No constipation, No diarrhea, No nausea, No vomiting Genitourinary: no symptoms reported Musculoskeletal: no symptoms reported Skin: no symptoms reported Psychiatric/Neurological: See HPI All Other Systems Reviewed Negative Unless Noted: Yes Reviewed Test Results Reviewed Test Results Lab Laboratory Tests 01/24/21 16:30: White Blood Count 6.6, Red Blood Count 3.96, Hemoglobin 12.4, Hematocrit 37, Mean Corpuscular Volume 92, Mean Corpuscular Hemoglobin 31, Mean Corpuscular Hemoglobin Concent 34, Red Cell Distribution Width 13.6, Platelet Count 228, Mean Platelet Volume 10.2, Immature Granulocyte % (Auto) 0, Neutrophils (%) (Auto) 77H, Lymphocytes (%) (Auto) 9L, Monocytes (%) (Auto) 12, Eosinophils (%) (Auto) 1, Basophils (%) (Auto) 1, Neutrophils # (Auto) 5.1, Lymphocytes # (Auto) 0.6L, Monocytes # (Auto) 0.8, Eosinophils # (Auto) 0.1, Basophils # (Auto) 0.0, Immature Granulocyte # (Auto) 0.0, Sodium Level 138, Potassium Level 4.5, Chloride Level 103, Carbon Dioxide Level 23, Anion Gap 12, Blood Urea Nitrogen 21H, Creatinine 1.30, Estimat Glomerular Filtration Rate 40, BUN/Creatinine Ratio 16, Glucose Level 112H, Calcium Level 9.4 01/24/21 17:53: Urine Color YELLOW, Urine Clarity CLEAR, Urine pH 7.5, Urine Specific [place] 1.010L, Urine Protein NEGATIVE, Urine Glucose (UA) NEGATIVE, Urine Ketones NEGATIVE, Urine Nitrite NEGATIVE, Urine Bilirubin NEGATIVE, Urine Urobilinogen 0.2, Urine Leukocyte Esterase NEGATIVE, Urine RBC (Auto) NEGATIVE, Urine RBC NONE, Urine WBC 0-2, Urine Squamous Epithelial Cells 5-10, Urine Crystals NONE, Urine Bacteria TRACE, Urine Casts NONE, Urine Mucus NEGATIVE, Urine Culture Indicated NO 01/25/21 05:29: White Blood Count 7.4, Red Blood Count 4.04, Hemoglobin 12.5, Hematocrit 37, Mean Corpuscular Volume 92, Mean Corpuscular Hemoglobin 31, Mean Corpuscular Hemoglobin Concent 34, Red Cell Distribution Width 13.8, Platelet Count 214, M cecilia Platelet Volume 10.0, Immature Granulocyte % (Auto) 0, Neutrophils (%) (Auto) 81H, Lymphocytes (%) (Auto) 8L, Monocytes (%) (Auto) 9, Eosinophils (%) (Auto) 1, Basophils (%) (Auto) 1, Neutrophils # (Auto) 6.0, Lymphocytes # (Auto) 0.6L, Monocytes # (Auto) 0.6, Eosinophils # (Auto) 0.1, Basophils # (Auto) 0.1, Immature Granulocyte # (Auto) 0.0, Sodium Level 139, Potassium Level 4.0, Chloride Level 106, Carbon Dioxide Level 22, Anion Gap 11, Blood Urea Nitrogen 17, Creatinine 1.06, Estimat Glomerular Filtration Rate 50, BUN/Creatinine Ratio 16, Glucose Level 115H, Calcium Level 9.4 ECG Impression ECG Initial ECG Rhythm: A Fib/Flutter Initial ECG Impression: Atrial Fibrillation w/RVR Physical Exam Physical Exam Vital Signs Vital Signs - First Documented 01/24/21 15:40 Temp 36.4 Pulse 114 Resp 18 B/P (MAP) 139/96 (110) Pulse Ox 97 O2 Delivery Room Air Capillary Refill : Less Than 3 Seconds Height, Weight, BMI Height: 5'5.50" Weight: 163lbs. 0.6oz. 73.218385rw; 26.44 BMI Method:Stated General Appearance: No Apparent Distress, WD/WN Eyes: Bilateral Eye Normal Inspection, Bilateral Eye PERRL, Bilateral Eye EOMI HEENT: PERRL/EOMI, Moist Mucous Membranes; No Scleral Icterus (L), No Scleral Icterus (R) Neck: Normal Inspection, Supple Respiratory: Lungs Clear, No Accessory Muscle Use, No Respiratory Distress Cardiovascular: No Murmur, Irregularly Irregular, Tachycardia Gastrointestinal: Normal Bowel Sounds, Non Tender, Soft Extremity: No Calf Tenderness, No Pedal Edema Neurologic/Psychiatric: Alert, Oriented x3 (with some minor detail issues (surgery dates, medications)) Skin: Normal Color, Warm/Dry A/P-Cardiology Admission Diagnosis Afib with RVR HTN Valvular heart disease Generalized debility/weakness. Assessment/Plan Afib with RVR, history of chronic afib, previously followed by Dr. Siegel. Most recent 2D Echo done December 2018 with EF 45-50%, left atrium mildly dilated, mild to moderate AR, mod TR. Maintained on Toprol XL and Cardizem as well as Eliquis as outpatient. Heart rate still slightly tachycardic. Discussed possibility of ablation in the past, however, patient preferred to continue with medical management. Hx of Typical atrial flutter s/p ablation done in February 2019. Hx of CVA in 2019, likely d/t atrial fibrillation. HTN, controlled, continue to monitor. Generalized debility/weakness with unsteady gait and frequent falls, continue PT/OT Valvular heart disease: Patient has moderate to severe tricuspid regurgitation, moderate mitral regurgitation, bkcp-za-nrqjqhnd aortic regurgitation. Reevaluate 2D Echo Hx of Chronic kidney disease,renal function improved, continue to monitor. Thank you for allowing us to participate in the management of Ms. Sellers. This is Cayla Galeas PA-C, as a scribe for Dr. Vásquez. Patient was seen and evaluated with Cayla, was laying down in bed comfortably, has been complaining of generalized fatigue and loss of energy Had atrial flutter ablation in February 2019, currently in atrial fibrillation with rapid ventricular response, I will add digoxin and evaluate tolerance and response Continue to monitor blood pressure and lipids CAYLA GONZALES Jan 25, 2021 2:36 pm SHARRI VÁSQUEZ MD Jan 25, 2021 7:05 pm
[2021-01-25 15:00] VITALS: BP 145/72
[2021-01-25] MEDS ORDERED: DIGOXIN 0.125 MG (LANOXIN) TAB PO ONE (16:15)
[2021-01-25] MEDS: SERTRALINE 50 MG (ZOLOFT) TABLET PO SCH (17:07)
[2021-01-25] MEDS ORDERED: NON-FORMULARY MEDICATION 1 EA EA (Sertraline HCl 25 MG) PO SCH (18:00)
[2021-01-25] MEDS ORDERED: NON-FORMULARY MEDICATION 1 EA EA (Diltiazem HCl (Diltiazem ER) 360 MG) PO SCH (18:00)
[2021-01-25] MEDS: LATANOPROST 0.005% (XALATAN) OPHTH SOLN 2.5 ML OU SCH (19:59)
[2021-01-25 20:00] VITALS: BP 147/66
[2021-01-25] MEDS: ACETAMINOPHEN 325 MG TABLET PO PRN (20:00)
[2021-01-26] MEDS: LACTATED RINGERS 1,000 ML IV SCH ×3 (00:26→23:04)
[2021-01-26 00:28] VITALS: BP 144/86
[2021-01-26] MEDS: NS IV 500 ML 500 ML IV SCH ×2 (03:11→21:34)
[2021-01-26 04:20] VITALS: BP 132/82
[2021-01-26] MEDS: GABAPENTIN 100 MG (NEURONTIN) CAP PO SCH ×2 (06:09→13:50)
[2021-01-26] MEDS: APIXABAN 5 MG (ELIQUIS) TABLET PO SCH ×2 (06:09→13:50)
[2021-01-26 07:25] VITALS: BP 133/85
[2021-01-26] MEDS: DRONEDARONE TABLET 400 MG TABLET PO SCH (08:07)
[2021-01-26] MEDS: CYCLOBENZAPRINE 10 MG (FLEXERIL) TAB PO SCH ×3 (08:07→21:33)
[2021-01-26] MEDS: ASPIRIN E.C. 81 MG (ECOTRIN) TAB PO SCH (08:07)
[2021-01-26] MEDS: ACETAMINOPHEN 325 MG TABLET PO PRN (08:08)
[2021-01-26] MEDS: DIGOXIN 0.125 MG (LANOXIN) TAB PO SCH (08:10)
[2021-01-26] MEDS: meTOproloL SUCCINATE 50 MG (TOPROL XL) TAB PO SCH (08:10)
--- NOTE | 2021-01-26 08:25 | Cardiology Progress Note ---
Subjective Date Seen by Provider: Jan 26, 2021 Time Seen by Provider: 08:22 Subjective/Events-last exam Patient in bed, appears drowsy this morning. Denies any chest pain or palpi tations. Review of Systems General: No Chills, No Night Sweats, No Fatigue, No Malaise, No Appetite, No Other HEENT: No Head Aches, No Visual Changes, No Eye Pain, No Ear Pain, No Dysphasia, No Sinus Congestion, No Post Nasal Drip, No Sore Throat, No Other Pulmonary: No Dyspnea, No Cough, No Pleuritic Chest Pain, No Other Cardiovascular: No: Chest Pain, Palpitations, Orthopnea, Paroxysmal Noc. Dyspnea, Edema, Lt Headedness, Other Objective-Cardiology Exam Last Set of Vital Signs Vital Signs 01/26/21 12:30 Temp 36.4 Pulse 74 Resp 18 B/P (MAP) 92/61 (71) Pulse Ox 95 O2 Delivery Room Air Capillary Refill : Less Than 3 Seconds I&O Intake and Output 01/26/21 00:00 Intake Total 1620 ml Output Total 825 ml Balance 795 ml Intake Oral 1620 ml Output Urine Total 825 ml # Voids 4 # Bowel Movements 2 General: Alert, Oriented X3, Cooperative HEENT: Atraumatic, PERRLA Neck: Supple, No JVD, No Thyromegaly Lungs: Clear to Auscultation, Normal Air Movement Heart: Regular Rate, Normal S1, Normal S2, No Murmurs Abdomen: Normal Bowel Sounds, Soft, No Tenderness, No Hepatosplenomegaly, No Masses Extremities: No Clubbing, No Cyanosis, No Edema, Normal Pulses, No Tenderness/Swelling Skin: No Rashes, No Breakdown, No Significant Lesion Neuro: Cranial Nerves 3-12 NL Psych/Mental Status: Mental Status NL, Mood NL A/P-Cardiology Admission Diagnosis Afib with RVR HTN Valvular heart disease Generalized debility/weakness. Assessment/Plan Afib with RVR, history of chronic afib, previously followed by Dr. Siegel. Most recent 2D Echo done December 2018 with EF 45-50%, left atrium mildly dilated, mild to moderate AR, mod TR. Maintained on Toprol XL and Cardizem as well as Eliquis as outpatient. Added digoxin yesterday. Heart rate improved this morning. . Discussed possibility of ablation in the past, however, patient preferred to continue with medical management. Hx of Typical atrial flutter s/p ablation done in February 2019. Hx of CVA in 2019, likely d/t atrial fibrillation. HTN, controlled, continue to monitor. Generalized debility/weakness with unsteady gait and frequent falls, continue PT/OT Valvular heart disease: Patient has moderate tricuspid regurgitation, mild aortic regurgitation. Hx of Chronic kidney disease,renal function improved, continue to monitor. Patient was seen and evaluated, laying down in bed, no new complaint. Denied any chest pain. Heart rate is better controlled on digoxin Continue to monitor blood pressure and heart rate Continue on current medication Supervisory-Addendum Brief Supervisory Addendum Participated in pt care: history, MDM, physical Personally performed: exam, history, MDM Care discussed with: FLAVIA JAUREGUI Jan 26, 2021 08:25 SHARRI MONTAÑO MD Jan 26, 2021 13:08
--- NOTE | 2021-01-26 10:05 | Physical Therapy Daily Note ---
PT Daily Note-Current Subjective Patient agrees to PT. Family present. Mental Status Patient Orientation: Confused Attachments: IV Transfers SCALE: Activities may be completed with or without assistive devices. 6-Kqrhacglzv-oerapyo completes the activity by him/herself with no assistance from a helper. 5-Set-up or Clean-up Assistance-helper sets up or cleans up; patient completes activity. Amanda assists only prior to or following the activity. 4-Supervision or Touching Assistance-helper provides verbal cues and/or touching/steadying and/or contact guard assistance as patient completes activity. Assistance may be provided throughout the activity or intermittently. 3-Partial/Moderate Assistance-helper does LESS THAN HALF the effort. Amanda lifts, holds or supports trunk or limbs, but provides less than half the effort. 2-Substantial/Maximal Assistance-helper does MORE THAN HALF the effort. Amanda lifts or holds trunk or limbs and provides more than half the effort. 7-Qbwcadkba-fpuwio does ALL the effort. Patient does none of the effort to complete the activity. Or, the assistance of 2 or more helpers is required for the patient to complete the activity. If activity was not attempted, code reason: 7-Patient Refused. 9-Not Applicable-not attempted and the patient did not perform the activity before the current illness, exacerbation or injury. 10-Not Attempted due to Environmental Limitations-(lack of equipment, weather restraints, etc.). 88-Not Attempted due to Medical Conditions or Safety Concerns. Lying to Sitting/Side of Bed(Q: 4 (SBA) Sit to Stand (QC): 4 (CGA) Chair/Ytx-yw-Otgpu Xfer(QC): 4 (CGA) Patient impulsive to sit in recliner by letting go of FWW prior to turning to safely sit. VC's for safety concerns and proper technique to prevent falls. Gait Training Does the Patient Walk?: Yes Distance: 150' Walk 10 feet (QC): 4 (CGA) Walk 50 ft with 2 Turns(QC): 4 (CGA) Walk 150 ft (QC): 4 (CGA) Gait Assistive Device: FWW NBOS with right LE lag Assessment Patient up in recliner with chair alarm activated. Increase activity as tolerated by patient. PT Halfway Goals Senior Asic Engineer Goals PT Senior Asic Engineer Goals Time Frame: Feb 01, 2021 Roll Left & Right (QC): 6 Sit to Lying (QC): 6 Lying-Sitting on Side/Bed(QC): 6 Sit to Stand (QC): 5 Chair/Olw-yg-Zzlpe Xfer(QC): 5 Walk 10 feet (QC): 5 Walk 50ft with 2 Turns (QC): 5 PT Plan Treatment/Plan Treatment Plan: Continue Plan of Care Treatment Plan: Bed Mobility, Education, Functional Activity Sammie, Functional Strength, Gait, Safety, Therapeutic Exercise, Transfers Treatment Duration: Feb 01, 2021 Frequency: 6 times per week Estimated Hrs Per Day: .25 hour per day Patient and/or Family Agrees t: Yes Time/GCodes Time In: 932 Time Out: 949 Total Billed Treatment Time: 17 Total Billed Treatment 1 visit FA 17 min AUSTEN CORONEL PT Jan 26, 2021 10:05
--- NOTE | 2021-01-26 11:24 | Progress Note - Hospitalist ---
Subjective HPI/CC On Admission Date Seen by Provider: Jan 26, 2021 Time Seen by Provider: 11:32 Pt is a 80yoCF with a PMH of a fib, HTN and chronic back pain from spinal stenosis who presented to the ER due to falls. She had a fall roughly 3 weeks ago where she fell and hit her head. Her PCP attempted to get her in to IRU at that time but was unable to. Family then elected to admit her to [facility] for skilled care and 24/7 supervision. She has since suffered two more falls both times striking her head. Her family noticed with each one that she was more confused and not acting right so brought her in for evaluation. She had a negative CT but was found to be in a-fib with a heart rate in the 120as. She was admitted for her debility and poorly controlled a-fib. Her daughter reports that she has back surgery scheduled for 02/21 and needs a bone scan and was supposed to be seen by cardiology for any work up needed before that. She has h ad an ablation in the past but has recurrent a fib. She previously followed with Dr Siegel but has not seen a tint layer since he left practice here in [facility]. Subjective/Events-last exam Pt reports being sleepy this morning. Already working with PT and did well. Objective Exam Vital Signs Vital Signs Date Time Temp Pulse Resp B/P (MAP) Pulse Ox O2 Delivery O2 Flow Rate FiO2 01/26/21 08:00 Room Air 01/26/21 07:25 35.9 80 18 133/85 (101) 96 Capillary Refill : Less Than 3 Seconds General Appearance: No Apparent Distress, Chronically ill Cardiovascular: Regular Rate, Rhythm, No Murmur Neurologic/Psychiatric: Alert, Oriented x3, Normal Mood/Affect Results/Procedures Lab Patient resulted labs reviewed. Imaging: Reviewed Imaging Report Assessment/Plan Assessment and Plan Assess & Plan/Chief Complaint Poorly controlled a-fib Cardiology consulted, appreciate recs Resume home meds Continue Eliquis Received digoxin, rate improved Falls Concussion PT/OT Family reports she needs 24/7 supervision due to impulsivity and falls Plan to DC back to [facility] when able, hopefully tomorrow Chronic back pain Plans to have surgery on 02/21 Discussed potential for IRU post op for rehab DVT ppx: Eliquis as above Diagnosis/Problems Diagnosis/Problems (1) Spinal stenosis (2) Falls frequently Status: Acute (3) Concussion Status: Acute Qualifiers: Encounter type: initial encounter Loss of consciousness presence/duration: without LOC Qualified Codes: S06.0X0A - Concussion without loss of consciousness, initial encounter (4) NORAH Lerma MD Jan 26, 2021 11:24
--- NOTE | 2021-01-26 11:53 | Occupational Ther Daily Note ---
OT Current Status-Daily Note Subjective Pt alert, sitting in recliner. Pt stated she didn't know what medicine she was taken because she couldn't talk well and was falling asleep. Pt agrees to therapy. Mental Status/Objective Patient Orientation: Person, Confused, Place Attachments: IV, Telemetry ADL-Treatment Pt agrees to brush teeth and wash face standing at sink. Pt declines toileting. Sit <--> Stand CGA for safety. Using FWW with CGA to ambulate to bathroom. CGA for safety while standing at sink to complete oral care and washing face and hands. After session, pt sitting in recliner with call light/phone in reach. Daughter present in room. Chair alarm activated. All needs met. Therapy Code Descriptions/Definitions Functional [place] Measure: 0=Not Assessed/NA 4=Minimal Assistance 1=Total Assistance 5=Supervision or Setup 2=Maximal Assistance 6=Modified [place] 3=Moderate Assistance 7=Complete IndependenceSCALE: Activities may be completed with or without assistive devices. 7-Edvjlsjnjn-zxykiod completes the activity by him/herself with no assistance from a helper. 5-Set-up or Clean-up Assistance-helper sets up or cleans up; patient completes activity. Walker assists only prior to or following the activity. 4-Supervision or Touching Assistance-helper provides verbal cues and/or touching/steadying and/or contact guard assistance as patient completes activity. Assistance may be provided throughout the activity or intermittently. 3-Partial/Moderate Assistance-helper does LESS THAN HALF the effort. Walker lifts, holds or supports trunk or limbs, but provides less than half the effort. 2-Substantial/Maximal Assistance-helper does MORE THAN HALF the effort. Walker lifts or holds trunk or limbs and provides more than half the effort. 6-Iexolrkpi-hobfln does ALL the effort. Patient does none of the effort to complete the activity. Or, the assistance of 2 or more helpers is required for the patient to complete the activity. If activity was not attempted, code reason: 7-Patient Refused. 9-Not Applicable-not attempted and the patient did not perform the activity before the current illness, exacerbation or injury. 10-Not Attempted due to Environmental Limitations-(lack of equipment, weather restraints, etc.). 88-Not Attempted due to Medical Conditions or Safety Concerns. Oral Hygiene (QC): 4 OT Supervisor Beet End Goals Supervisor Beet End Goals Time Frame: Feb 03, 2021 Eating (QC): 6 Oral Hygiene (QC): 6 Toileting Hygiene (QC): 6 Shower/Bathe Self (QC): 4 Upper Body Dressing (QC): 5 Lower Body Dressing (QC): 4 On/Off Footwear (QC): 4 Additional Goals: 1-Demonstrate ADL Tasks, 2-Verbalize Understanding, 3- ImproveStrength/Sammie 1=Demonstrate adherence to instructed precautions during ADL tasks. 2=Patient will verbalize/demonstrate understanding of assistive devices/modifications for ADL. 3=Patient will improve strength/tolerance for activity to enable patient to perform ADL's. OT Education/Plan Problem List/Assessment Assessment: Decreased Activ Tolerance, Decreased Safety Aware, Impaired Self- Care Skills Discharge Recommendations Plan/Recommendations: Continue POC Treatment Plan/Plan of Care Patient would benefit from OT for education, treatment and training to promote independence in ADL's, mobility, safety and/or upper extremity function for ADL's. Plan of Care: ADL Retraining, Functional Mobility, UE Funct Exercise/Act Treatment Duration: Feb 03, 2021 Frequency: 5 times per week Estimated Hrs Per Day: .25 hour per day Rehab Potential: Fair Time/GCodes Start Time: 11:35 Stop Time: 11:50 Total Time Billed (hr/min): 15 Billed Treatment Time 1 visit-NANCY ADL 1 (15 min) KATHARINA BROCK Jan 26, 2021 11:53
[2021-01-26 12:30] VITALS: BP 92/61
[2021-01-26 16:30] VITALS: BP 105/63
[2021-01-26] MEDS: SERTRALINE 50 MG (ZOLOFT) TABLET PO SCH (17:00)
[2021-01-26 19:15] VITALS: BP 100/64
[2021-01-26] MEDS: LATANOPROST 0.005% (XALATAN) OPHTH SOLN 2.5 ML OU SCH (21:33)
[2021-01-27 00:26] VITALS: BP 112/69
[2021-01-27 04:28] VITALS: BP 121/77
[2021-01-27 05:59] LABS: HEMATOCRIT 35 % (35-52); HEMOGLOBIN 11.7 g/dL (11.5-16.0); MEAN CORPUSCULAR HEMOGLOBIN 30 pg (25-34); MEAN CORPUSCULAR HGB CONC 33 g/dL (32-36); MEAN CORPUSCULAR VOLUME 92 fL (80-99); MEAN PLATELET VOLUME 10.1 fL (9.0-12.2); PLATELET COUNT 205 10^3/uL (130-400); WHITE BLOOD COUNT 5.6 10^3/uL (4.3-11.0)
[2021-01-27] MEDS: GABAPENTIN 100 MG (NEURONTIN) CAP PO SCH ×2 (06:13→14:15)
[2021-01-27] MEDS: APIXABAN 5 MG (ELIQUIS) TABLET PO SCH ×2 (06:13→14:15)
[2021-01-27 06:17] LABS: POTASSIUM 4.1 MMOL/L (3.6-5.0)
[2021-01-27 06:18] LABS: CALCIUM 8.9 MG/DL (8.5-10.1)
[2021-01-27 06:22] LABS: CREATININE SERUM 0.98 MG/DL (0.60-1.30)
[2021-01-27 07:50] VITALS: BP 119/79
[2021-01-27] MEDS: DRONEDARONE TABLET 400 MG TABLET PO SCH (08:49)
[2021-01-27] MEDS: DIGOXIN 0.125 MG (LANOXIN) TAB PO SCH (08:49)
[2021-01-27] MEDS: LACTATED RINGERS 1,000 ML IV SCH (08:50)
[2021-01-27] MEDS: ASPIRIN E.C. 81 MG (ECOTRIN) TAB PO SCH (08:50)
[2021-01-27] MEDS: meTOproloL SUCCINATE 50 MG (TOPROL XL) TAB PO SCH (08:50)
[2021-01-27] MEDS: CYCLOBENZAPRINE 10 MG (FLEXERIL) TAB PO SCH ×2 (08:50→14:15)
--- NOTE | 2021-01-27 10:25 | Discharge Inst-Skilled Nursing ---
Discharge Inst-Skilled NF Chief Complaint Pt is a 80yoCF with a PMH of a fib, HTN and chronic back pain from spinal stenosis who presented to the ER due to falls. She had a fall roughly 3 weeks ago where she fell and hit her head. Her PCP attempted to get her in to IRU at that time but was unable to. Family then elected to admit her to [facility] for skilled care and 04/03 supervision. She has since suffered two more falls both times striking her head. Her family noticed with each one that she was more confused and not acting right so brought her in for evaluation. She had a negative CT but was found to be in a-fib with a heart rate in the 120as. She was admitted for her debility and poorly controlled a-fib. Her daughter reports that she has back surgery scheduled for 02/21 and needs a bone scan and was supposed to be seen by cardiology for any work up needed before that. She has had an ablation in the past but has recurrent a fib. She previously followed with Dr Siegel but has not seen a groutman since he left practice here in [facility]. Consult/Follow Up/Orders Skilled NF Admit to: [facility] Certification (SNF) I certify that SNF services are required to be given on an inpatient basis because of the above named patient's need for [facility] care on a continuing basis for the conditions(s) for which he/she was receiving inpatient hospital services prior to his/her transfer to the SNF. [facility]itent[facility] Facility Order: Nursing Services, Glazing Machine Operator-Evaluate & Treat, Physical Therapy-Evaluate & Treat Oxygen Delivery Method: Room Air Discharge Diet: No Restrictions Daily Activity as Tolerated: Yes Resuscitation Status: Full Code New & Resume Previous Orders Norah Levin Jan 27, 2021 10:24 NORAH LEVIN MD Jan 27, 2021 10:25
--- NOTE | 2021-01-27 10:34 | Discharge Summary ---
Diagnosis/Chief Complaint Date of Admission Jan 24, 2021 at 18:35 Date of Discharge Discharge Date: Jan 27, 2021 Admission Diagnosis Poorly contorlled a-fib Primary Care Davila,Radha Kenny Yard Spotter Discharge Diagnosis (1) Spinal stenosis (2) Falls frequently Status: Acute (3) Concussion Status: Acute (4) Afib Discharge Summary Discharge Physical Exam Allergies: Coded Allergies: No Known Drug Allergies (Unverified , 12/11/18) Vitals & I&Os Vital Signs Date Time Temp Pulse Resp B/P (MAP) Pulse Ox O2 Delivery O2 Flow Rate FiO2 01/27/21 07:50 36.2 83 20 119/79 (92) 94 Room Air Hospital Course Labs (last 24 hrs) Laboratory Tests 01/27/21 05:38: White Blood Count 5.6, Red Blood Count 3.86, Hemoglobin 11.7, Hematocrit 35, Mean Corpuscular Volume 92, Mean Corpuscular Hemoglobin 30, Mean Corpuscular Hemoglobin Concent 33, Red Cell Distribution Width 13.8, Platelet Count 205, Mean Platelet Volume 10.1, Sodium Level 140, Potassium Level 4.1, Chloride Level 107, Carbon Dioxide Level 23, Anion Gap 10, Blood Urea Nitrogen 16, Creatinine 0.98, Estimat Glomerular Filtration Rate 55, BUN/Creatinine Ratio 16, Glucose Level 87, Calcium Level 8.9, Digoxin Level 1.01 Patient resulted labs reviewed. Pending Labs Laboratory Tests 01/27/21 05:38: White Blood Count 5.6, Red Blood Count 3.86, Hemoglobin 11.7, Hematocrit 35, Mean Corpuscular Volume 92, Mean Corpuscular Hemoglobin 30, Mean Corpuscular Hemoglobin Concent 33, Red Cell Distribution Width 13.8, Platelet Count 205, Mean Platelet Volume 10.1, Sodium Level 140, Potassium Level 4.1, Chloride Level 107, Carbon Dioxide Level 23, Anion Gap 10, Blood Urea Nitrogen 16, Creatinine 0.98, Estimat Glomerular Filtration Rate 55, BUN/Creatinine Ratio 16, Glucose Level 87, Calcium Level 8.9, Digoxin Level 1.01 Imaging: Reviewed Imaging Report Discharge Home Medications: Active Scripts Active Reported Tramadol HCl 50 Mg Tablet 50-100 Mg PO Q6H PRN Milk of Magnesia (Magnesium Hydroxide) 400 Mg/5 Ml Oral.susp 30 Ml PO DAILY PRN Cyclobenzaprine HCl 10 Mg Tablet 10 Mg PO TID Gabapentin 100 Mg Capsule 100 Mg PO 0600,1400 Sertraline HCl 25 Mg Tablet 25 Mg PO 1800 Multaq (Dronedarone HCl) 400 Mg Tablet 400 Mg PO DAILY Metoprolol Succinate 50 Mg Tab.er.24h 75 Mg PO DAILY TAKES 1 & (50MG) TABS HOLD AND NOTIFY NURSE IF BP <80/50 OR >180/110 AND/OR PULSE <50 >110 Metamucil Packet (Psyllium Husk (with Sugar)) 3.4 Gm Powd.pack 3.4 Gm PO 1800 Diltiazem ER (Diltiazem HCl) 360 Mg Tab.er.24h 360 Mg PO 1800 HOLD AND NOTIFY NURSE IF BP <80/50 OR >180/110 AND/OR PULSE <50 >110 Xalatan (Latanoprost) 2.5 Ml Drops 1 Drop OU HS Furosemide 20 Mg Tablet 20 Mg PO DAILY PRN Klor-Con 10 (Potassium Chloride) 10 Meq Tablet.er 10 Meq PO DAILY PRN Colace (Docusate Sodium) 100 Mg Capsule 100 Mg PO DAILY Eliquis (Apixaban) 5 Mg Tablet 5 Mg PO 0600,1400 Aspirin EC (Aspirin) 81 Mg Tablet.dr 81 Mg PO DAILY Instructions to patient/family Please see electronic discharge instructions given to patient. Problem Qualifiers (1) Concussion: Encounter type: initial encounter Loss of consciousness presence/duration: without LOC Qualified Codes: S06.0X0A - Concussion without loss of consciousness, initial encounter NORAH ANDREWS MD Jan 27, 2021 10:34
[2021-01-27 11:34] VITALS: BP 94/59
--- NOTE | 2021-01-27 13:10 | Cardiology Progress Note ---
Subjective Date Seen by Provider: Jan 27, 2021 Time Seen by Provider: 13:09 Subjective/Events-last exam Patient was seen at bedside, sitting comfortably, no new complaint Review of Systems General: No Chills, No Night Sweats, No Fatigue; Malaise; No Appetite, No Other HEENT: No Head Aches, No Visual Changes, No Eye Pain, No Ear Pain, No Dysphasia, No Sinus Congestion, No Post Nasal Drip, No Sore Throat, No Other Pulmonary: No Dyspnea, No Cough, No Pleuritic Chest Pain, No Other Cardiovascular: No: Chest Pain, Palpitations, Orthopnea, Paroxysmal Noc. Dyspnea, Edema, Lt Headedness, Other Objective-Cardiology Exam Last Set of Vital Signs Vital Signs 01/27/21 01/27/21 11:34 13:00 Temp 36.4 Pulse 69 Resp 18 B/P (MAP) 94/59 (71) Pulse Ox 96 O2 Delivery Room Air Capillary Refill : Less Than 3 Seconds I&O Intake and Output 01/27/21 00:00 Intake Total 2540 ml Output Total 1500 ml Balance 1040 ml Intake Oral 1540 ml IV Total 1000 ml Output Urine Total 1500 ml # Voids 5 # Urine Diapers 1 General: Alert, Oriented X3, Cooperative HEENT: Atraumatic, PERRLA Neck: Supple, No JVD, No Thyromegaly Lungs: Clear to Auscultation, Normal Air Movement Heart: Regular Rate, Normal S1, Normal S2, No Murmurs Abdomen: Normal Bowel Sounds, Soft, No Tenderness, No Hepatosplenomegaly, No Masses Extremities: No Clubbing, No Cyanosis, No Edema, Normal Pulses, No Tenderness/Swelling Skin: No Rashes, No Breakdown, No Significant Lesion Neuro: Cranial Nerves 3-12 NL Psych/Mental Status: Mental Status NL, Mood NL Results Lab Laboratory Tests 01/27/21 05:38 A/P-Cardiology Admission Diagnosis Afib with RVR HTN Valvular heart disease Generalized debility/weakness. Assessment/Plan Afib with RVR, history of chronic afib, previously followed by Dr. Siegel. Most recent 2D Echo done December 2018 with EF 45-50%, left atrium mildly dilated, mild to moderate AR, mod TR. Maintained on Toprol XL and Cardizem as well as Eliquis as outpatient. Added digoxin yesterday. Heart rate improved this morning. . Discussed possibility of ablation in the past, however, patient preferred to continue with medical management. Hx of Typical atrial flutter s/p ablation done in February 2019. Hx of CVA in 2018, likely d/t atrial fibrillation. HTN, controlled, continue to monitor. Generalized debility/weakness with unsteady gait and frequent falls, continue PT/OT Valvular heart disease: Patient has moderate tricuspid regurgitation, mild aortic regurgitation. Hx of Chronic kidney disease,renal function improved, continue to monitor. SHARRI MONTAÑO MD Jan 27, 2021 1:10 pm
[2021-01-27] MEDS ORDERED: DIGO125T18 PO (15:01)
[2021-01-27 15:38] VITALS: BP 94/59
== END 2021-01-27 15:42 ==
LOC: EDUNIT# 15:32 → ER 15:34 → 4TH 18:35
PROVIDERS: ADMIT Family Medicine; ATTEND Family Medicine
DX: M48.00 Spinal stenosis, site unspecified (principal); R29.6 Repeated falls; S06.0X0A Concussion without loss of consciousness, initial encounter; I48.20 Chronic atrial fibrillation, unspecified; I12.9 Hypertensive chronic kidney disease with stage 1 through stage 4 chronic kidney disease, or unspecified chronic kidney disease; N18.6 End stage renal disease; K21.9 Gastro-esophageal reflux disease without esophagitis; R41.0 Disorientation, unspecified; I08.2 Rheumatic disorders of both aortic and tricuspid valves; Z79.82 Long term (current) use of aspirin; Z79.01 Long term (current) use of anticoagulants; Z79.899 Other long term (current) drug therapy; Z80.9 Family history of malignant neoplasm, unspecified
CPT/HCPCS: 70450; 80048 ×3; 80162; 81000; 85025 ×2; 85027; 93005 ×2; 93306; 96374; 97162; 97166; 97530; 97535; 99284; G0378; 36415

== ENCOUNTER → 2021-02-07 | Outpatient (CLI) | payer MEDICARE, OTHER ==
[~2021-02-07] MED LIST changes: +APIX5TAB PO; +CYCL10TA9 PO; +DIGO125T18 PO; +DILT360T11 PO; +DOCU-143 PO; +FURO20TA4 PO; +GABA-486 PO; +LATA2.5D19 OU; +MAGN400O7 PO; +METO50TA7 PO; +POTA10TA6 PO; +PSYL1PAC10 PO; +SERT-412 PO; +TRAM50TA3 PO
--- NOTE | 2021-02-07 10:07 | Diagnostic Imaging Report ---
INDICATION: 81-year-old asymptomatic postmenopausal female. COMPARISON: None available. FINDINGS: AP Spine L1-L4: [BMD (g/cm2): 0.988] [T-Score: -1.8] [Z-Score: 0.1] [BMD Previous: na] [BMD % Change: na] LT Hip Neck: [BMD (g/cm2): 0.590] [T-Score: -3.2] [Z-Score: -1.0] LT Hip Total: [BMD (g/cm2):0.634] [T-Score:-3.0] [Z-Score: -0.9] [BMD Previous: na] [BMD % Change: na] RT Hip Neck: [BMD (g/cm2):0.670] [T-Score:-2.6] [Z-Score:-0.5] RT Hip Total: [BMD (g/cm2):0.674] [T-score:-2.7] [Z-Score:-0.6] [BMD Previous:na] [BMD % Change:na] *Indicates significant change from prior examination based on 95% confidence level. World Health Organization criteria for BMD interpretation classify patients as Normal (T-score at or above -1.0), Osteopenic (T-score between -1.0 and -2.5) or Osteoporotic (T-score at or below -2.5). LIMITATIONS AND MODIFICATION: None. FRACTURE RISK (FRAX SCORE): Not applicable as patient meets criteria for osteoporosis. The ten year probability of (%): Major Osteoporotic Fracture: [na] Hip Fracture: [na] IMPRESSION: 1. Osteoporosis. 2. Baseline examination. 3. See below National Osteoporosis Foundation guidelines on when to potentially initiate pharmacologic therapy. Based on the National Osteoporosis Foundation Guidelines, pharmacologic treatment should be initiated in any of the following, unless clinical conditions suggest otherwise: * Any patient with prior fragility fracture of the hip or vertebrae. A spine fracture indicates 5X risk for subsequent spine fracture and 2X risk for subsequent hip fracture. * Osteoporosis (T-score <-2.5). * Postmenopausal women and men age 50 and older with low bone mass/osteopenia (T-score between -1.0 and -2.5) by DXA and 10-year major osteoporotic fracture greater than 20% or a 10-year probability of hip fracture greater than 3%. These fracture risks are supplied above in the FRAX score, if applicable. * Clinician judgement and/or patient preferences may indicate treatment for people with 10-year fracture probabilities above or below these levels. Dictated by: Dictated on workstation # [id number]
== END ==
LOC: RAD 07:55
PROVIDERS: ATTEND Nurse Practitioner
DX: M81.0 Age-related osteoporosis without current pathological fracture (principal); Z78.0 Asymptomatic menopausal state
CPT/HCPCS: 77080

== ENCOUNTER → 2021-02-10 | Outpatient (CLI) | payer MEDICARE, OTHER ==
--- NOTE | 2021-02-10 16:01 | Diagnostic Imaging Report ---
PROCEDURE: MR imaging of the brain without contrast. TECHNIQUE: Multiplanar, multisequence MR imaging of the brain was performed without contrast. DATE: February 10, 2021. COMPARISON: CT head January 24, 2021. HISTORY: 81-year-old female, confusion. FINDINGS: There is no diffusion restriction. There are no areas of abnormal intracranial susceptibility. The ventricles and CSF spaces are normal in size and configuration for patient age. There is no abnormal extra axial fluid collection. There is no acute intracranial hemorrhage. There is no mass effect or midline shift. There are multifocal areas of T2 and FLAIR hyperintense signal in the periventricular and subcortical white matter as well as in the [place] which are nonspecific but most likely reflect moderate findings of chronic small vessel ischemic disease. There is mild mucosal thickening of the left frontal sinus. There is nonspecific opacification in the bilateral mastoid air cells. IMPRESSION: 1. No identified acute intracranial abnormality. 2. Moderate probable findings of chronic small vessel ischemic disease. Dictated by: Dictated on workstation # [id number]
== END ==
LOC: RAD 14:00
PROVIDERS: ATTEND Nurse Practitioner Family
DX: R41.0 Disorientation, unspecified (principal)
CPT/HCPCS: 70551

== ENCOUNTER → 2022-07-11 | Outpatient (CLI) | payer MEDICARE, OTHER ==
[~2022-07-11] MED LIST changes: +CYCL10TA25 PO; -CYCL10TA9 PO; +POTA-160 PO; -POTA10TA6 PO
== END ==
LOC: CARD 14:06
PROVIDERS: ATTEND Internal Medicine Cardiovascular Disease
DX: I51.7 Cardiomegaly (principal); I35.1 Nonrheumatic aortic (valve) insufficiency; I35.8 Other nonrheumatic aortic valve disorders; I34.0 Nonrheumatic mitral (valve) insufficiency; I34.81 Nonrheumatic mitral (valve) annulus calcification; I36.1 Nonrheumatic tricuspid (valve) insufficiency
CPT/HCPCS: 93306

== ENCOUNTER 2022-11-21 14:10 | Observation (INO) | payer MEDICARE, OTHER ==
[~2022-11-21] VITALS: Ht 165.1 cm; Wt 77.8 kg
[2022-11-21] MEDS ORDERED: CALC GLUC 1 GM/100 ML IVPB 100 ML IV ONE (14:30)
[2022-11-21] MEDS ORDERED: CALCIUM CHLORIDE 1 GM/10 ML (IMS) SYR IV SCH (14:30)
[2022-11-21] MEDS ORDERED: ATROPINE INJECTION 1 MG/10 ML SYR (ABBOTT) IV ONE (14:30)
[2022-11-21 14:47] LABS: BASOPHILS # (AUTO) 0.1 10^3/uL (0.0-0.1); BASOPHILS % (AUTO) 1 % (0-10); EOSINOPHILS # (AUTO) 0.1 10^3/uL (0.0-0.3); EOSINOPHILS % (AUTO) 1 % (0-10); HEMATOCRIT 37 % (35-52); HEMOGLOBIN 12.4 g/dL (11.5-16.0); LYMPHOCYTES # (AUTO) 0.8 10^3/uL (1.0-4.0); LYMPHOCYTES % (AUTO) 10 % (12-44); MEAN CORPUSCULAR HEMOGLOBIN 31 pg (25-34); MEAN CORPUSCULAR HGB CONC 33 g/dL (32-36); MEAN CORPUSCULAR VOLUME 93 fL (80-99); MEAN PLATELET VOLUME 11.2 fL (9.0-12.2); MONOCYTES # (AUTO) 0.6 10^3/uL (0.0-1.0); MONOCYTES % (AUTO) 7 % (0-12); NEUTROPHILS # (AUTO) 6.9 10^3/uL (1.8-7.8); NEUTROPHILS % (AUTO) 81 % (42-75); PLATELET COUNT 201 10^3/uL (130-400); WHITE BLOOD COUNT 8.4 10^3/uL (4.3-11.0)
[2022-11-21 14:49] LABS: POTASSIUM 4.6 MMOL/L (3.6-5.0)
[2022-11-21 14:51] LABS: CALCIUM 9.1 MG/DL (8.5-10.1)
[2022-11-21 14:55] LABS: CREATININE SERUM 0.98 MG/DL (0.60-1.30)
--- NOTE | 2022-11-21 15:21 | ED General ---
General Chief Complaint: Dizziness/Syncope Stated Complaint: WEAK | DIZZY Nursing Triage Note: ARRIVED VIA EMS FROM HOME WITH COMPLAINTS OF DIZZINESS AND HEART RATE IN THE 30'S' WAS SEEN AT [facility] 1 WEEK AGO AND TOLD TO DOUBLE HER METOPROLOL. Source of Information: Patient, EMS, Family Exam Limitations: No Limitations History of Present Illness Date Seen by Provider: Nov 21, 2022 Time Seen by Provider: 14:20 Initial Comments 82-year-old female presents emerged department today for dizziness. EMS reports her heart rate was in the 30s on their arrival and has been consistently throughout their transfer. Her blood pressures have been stable. She tells me he was seen a week ago in [facility] for dizziness. The did a work- up which was reportedly negative. They then told her to double her dose of metoprolol from 50 mg daily to 50 mg twice a day. She has been doing this for the last week. She denies any chest pain or shortness of breath. She has severe dizzy episodes intermittently throughout the day, especially with position changes. All other systems reviewed and negative except documented per HPI. Voice recognition software was used to help create this chart Allergies and Home Medications Allergies Coded Allergies: No Known Drug Allergies (Unverified , 12/11/18) Patient Home Medication List Home Medication List Reviewed: Yes Calcium Carbonate (Calcium) 600 Mg Calcium (1500 Mg) Tablet, 600 MG PO DAILY, (Reported) Entered as Reported by: ANJELICA SOTO on 11/22/22 103 Last Action: Reviewed Cephalexin (Cephalexin) 250 Mg Capsule, 250 MG PO QID, (Reported) Entered as Reported by: ANJELICA SOTO on 11/22/22 103 Last Action: Reviewed Diltiazem HCl (Matzim LA) 360 Mg Tab.er.24h, 360 MG PO DAILY, (Reported) Entered as Reported by: ANJELICA SOTO on 11/22/22 103 Last Action: Reviewed Docusate Sodium (Colace) 100 Mg Capsule, 100 MG PO DAILY, (Reported) Entered as Reported by: ANJELICA SOTO on 01/25/21 0844 Last Action: Reviewed Dorzolamide HCl/Timolol Maleat (Dorzolamide-Timolol Eye Drops) 22.3 Mg-6.8 Mg/Ml Drops, 1 DROP OU BID, (Reported) Entered as Reported by: ANJELICA SOTO on 11/22/22 1032 Last Action: Reviewed Gabapentin (Gabapentin) 100 Mg Capsule, 100 MG PO TID, (Reported) Entered as Reported by: ANJELICA SOTO on 01/25/21843 Last Action: Reviewed Metoprolol Succinate (Metoprolol Succinate) 25 Mg Tab.er.24h, 25 MG PO BID Prescribed by: JUJU TY on 11/22/22 1259 Multivit-Minerals/Folic Acid (Multivitamin Gummies) 200 Mcg Tab.chew, 1 EA PO BID, (Reported) Entered as Reported by: ANJELICA SOTO on 11/22/22 103 Last Action: Reviewed Rivaroxaban (Xarelto) 15 Mg Tablet, 15 MG PO DAILY, (Reported) Entered as Reported by: JAIME RAHMAN on 11/21/221834 Last Action: Reviewed Rosuvastatin Calcium (Rosuvastatin Calcium) 10 Mg Tablet, 10 MG PO DAILY, (Reported) Entered as Reported by: JAIME RAHMAN on 11/21/221834 Last Action: Reviewed Sertraline HCl (Sertraline HCl) 25 Mg Tablet, 25 MG PO HS, (Reported) Entered as Reported by: ANJELICA SOTO on 01/25/21843 Last Action: Reviewed Travoprost (Travoprost) 0.004 % Drops, 1 DROP OU HS, (Reported) Entered as Reported by: JAIME RAHMAN on 11/21/221834 Last Action: Reviewed Discontinued Medications Apixaban (Eliquis) 5 Mg Tablet, 5 MG PO 0600,1400, (Reported) Discontinued Reason: No Longer Taking Entered as Reported by: ANJELICA SOTO on 01/25/21843 Last Action: Discontinued Aspirin (Aspirin EC) 81 Mg Tablet.dr, 81 MG PO DAILY, (Reported) Discontinued Reason: No Longer Taking Entered as Reported by: REDDY SYKES on 12/11/18 0841 Last Action: Discontinued Cephalexin (Cephalexin) 250 Mg/5 Ml Susp.recon, 250 MG PO QID, (Reported) Discontinued Reason: Duplicate Order Entered as Reported by: JAIME RAHMAN on 11/21/221834 Last Action: Discontinued Cyclobenzaprine HCl (Cyclobenzaprine HCl) 10 Mg Tablet, 10 MG PO TID, (Reported) Discontinued Reason: No Longer Taking Entered as Reported by: ANJELICA SOTO on 01/25/21843 Last Action: Discontinued Digoxin (Digox) 125 Mcg Tablet, 0.125 MG PO DAILY Discontinued Reason: No Longer Taking Prescribed by: NORAH ANDREWS on 01/27/21 1501 Last Action: Discontinued Diltiazem HCl (Diltiazem ER) 360 Mg Tab.er.24h, 360 MG PO 1800, (Reported) Discontinued Reason: Duplicate Order Entered as Reported by: ANJELICA SOTO on 01/25/21843 Last Action: Discontinued Diltiazem HCl (Matzim LA) 300 Mg Tab.er.24h, 300 MG PO DAILY, (Reported) Discontinued Reason: No Longer Taking Entered as Reported by: ANJELICA SOTO on 11/22/22 1032 Last Action: Discontinued Dorzolamide/Timolol/Pf (Dorzolamide-Timolol 2%-0.5%) 2 %-0.5 % Droperette, 1 EACH OP BID, (Reported) Discontinued Reason: Duplicate Order Entered as Reported by: JAIME RAHMAN on 11/21/22 1838 Last Action: Discontinued Dronedarone HCl (Multaq) 400 Mg Tablet, 400 MG PO DAILY, (Reported) Discontinued Reason: No Longer Taking Entered as Reported by: ANJELICA SOTO on 01/25/21843 Last Action: Discontinued Furosemide (Furosemide) 20 Mg Tablet, 20 MG PO DAILY PRN for EDEMA, (Reported) Discontinued Reason: No Longer Taking Entered as Reported by: ANJELICA SOTO on 01/25/21843 Last Action: Discontinued Latanoprost (Xalatan) 2.5 Ml Drops, 1 DROP OU HS, (Reported) Discontinued Reason: No Longer Taking Entered as Reported by: ANJELICA SOTO on 01/25/21843 Last Action: Discontinued Magnesium Hydroxide (Milk of Magnesia) 400 Mg/5 Ml Oral.susp, 30 ML PO DAILY PRN for CONSTIPATION-7TH LINE, (Reported) Discontinued Reason: No Longer Taking Entered as Reported by: ANJELICA SOTO on 01/25/21843 Last Action: Discontinued Metoprolol Succinate (Metoprolol Succinate) 50 Mg Tab.er.24h, 50 MG PO BID, (Reported) Discontinued Reason: Prescription changed Entered as Reported by: ANJELICA SOTO on 01/25/21843 Last Action: Reviewed Potassium Chloride (Klor-Con 10) 10 Meq Tablet.er, 10 MEQ PO DAILY PRN for EDEMA, (Reported) Discontinued Reason: No Longer Taking Entered as Reported by: ANJELICA SOOT on 01/25/21843 Last Action: Discontinued Psyllium Husk (with Sugar) (Metamucil Packet) 3.4 Gm Powd.pack, 3.4 GM PO 1800, (Reported) Discontinued Reason: No Longer Taking Entered as Reported by: ANJELICA SOTO on 01/25/21843 Last Action: Discontinued Tramadol HCl (Tramadol HCl) 50 Mg Tablet, 50-100 MG PO Q6H PRN for PAIN-MILD (1- 4), (Reported) Discontinued Reason: No Longer Taking Entered as Reported by: ANJELICA SOTO on 01/25/21843 Last Action: Discontinued Review of Systems Review of Systems Constitutional: see HPI Past Taieieq-Xilejg-Ynmfcf Hx Patient Social History Tobacco Use?: No Substance use?: No Alcohol Use?: No Immunizations Up To Date Second COVID19 Vaccination Roland: UNKNOWN COVID19 Vaccine Missing Persons Investigator: UNKNOWN Past Medical History Surgeries: Yes Section, Joint Replacement Respiratory: No Cardiac: Yes Atrial Fibrillation, Hypertension Neurological: Yes Stroke Genitourinary: No Gastrointestinal: Yes Gastroesophageal Reflux, Hemorrhoids Endocrine: No Cancer: No Blood Disorders: No Adverse Reaction/Blood Tranf: No Family Medical History Reviewed Nursing Family Hx Cardiovascular disease G8 BROTHER FH: cancer 19 MOTHER No Pertinent Family Hx Physical Exam Vital Signs Vital Signs - First Documented 11/21/22 14:19 Temp 36.3 Pulse 53 Resp 16 B/P (MAP) 134/91 (105) Pulse Ox 98 O2 Delivery Room Air Capillary Refill : Less Than 3 Seconds Height, Weight, BMI Height: 5'5.50" Weight: 163lbs. 0.6oz. 73.263333sj; 26.00 BMI Method:Stated General Appearance: No Apparent Distress, WD/WN HEENT: Normal ENT Inspection, Pharynx Normal Neck: Normal Inspection, Non Tender, Supple Respiratory: Chest Non Tender, Lungs Clear, Normal Breath Sounds Cardiovascular: Normal Peripheral Pulses, Bradycardia Gastrointestinal: Non Tender, Soft Extremity: Normal Capillary Refill, No Pedal Edema Neurologic/Psychiatric: Alert, Oriented x3 Skin: Normal Color, Warm/Dry Progress/Results/Core Measures Suspected Sepsis SIRS Temperature: Pulse: 53 Respiratory Rate: 16 Laboratory Tests 11/21/22 14:19: White Blood Count 8.4 Blood Pressure 134 /91 Mean: 105 Laboratory Tests 11/21/22 14:19: Creatinine 0.98, Platelet Count 201 Results/Orders Lab Results Laboratory Tests Test 11/21/22 14:19 Range/Units White Blood Count 8.4 4.3-11.0 10^3/uL Red Blood Count 3.99 3.80-5.11 10^6/uL Hemoglobin 12.4 11.5-16.0 g/dL Hematocrit 37 35-52 % Mean Corpuscular Volume 93 80-99 fL Mean Corpuscular Hemoglobin 31 25-34 pg Mean Corpuscular Hemoglobin Concent 33 32-36 g/dL Red Cell Distribution Width 13.1 10.0-14.5 % Platelet Count 201 130-400 10^3/uL Mean Platelet Volume 11.2 9.0-12.2 fL Immature Granulocyte % (Auto) 1 % Neutrophils (%) (Auto) 81 H 42-75 % Lymphocytes (%) (Auto) 10 L 12-44 % Monocytes (%) (Auto) 7 0-12 % Eosinophils (%) (Auto) 1 0-10 % Basophils (%) (Auto) 1 0-10 % Neutrophils # (Auto) 6.9 1.8-7.8 10^3/uL Lymphocytes # (Auto) 0.8 L 1.0-4.0 10^3/uL Monocytes # (Auto) 0.6 0.0-1.0 10^3/uL Eosinophils # (Auto) 0.1 0.0-0.3 10^3/uL Basophils # (Auto) 0.1 0.0-0.1 10^3/uL Immature Granulocyte # (Auto) 0.0 0.0-0.1 10^3/uL Sodium Level 137 135-145 MMOL/L Potassium Level 4.6 3.6-5.0 MMOL/L Chloride Level 107 98-107 MMOL/L Carbon Dioxide Level 21 21-32 MMOL/L Anion Gap 9 5-14 MMOL/L Blood Urea Nitrogen 17 7-18 MG/DL Creatinine 0.98 0.60-1.30 MG/DL Estimat Glomerular Filtration Rate 58 BUN/Creatinine Ratio 17 Glucose Level 122 H 70-105 MG/DL Calcium Level 9.1 8.5-10.1 MG/DL Magnesium Level 2.0 1.6-2.4 MG/DL My Orders Orders - NICK GALLOWAY DO Calc Gluc 1 Gm/100 Ml Ivpb (Calcium Gluc (11/21/22 14:30) Atropine Inj 1 Mg Syringe (Atropine Inj (11/21/22 14:30) Cbc With Automated Diff (11/21/22 14:22) Basic Metabolic Panel (11/21/22 14:22) Magnesium (11/21/22 14:22) Calcium Chloride 10% Injection (Calcium (11/21/22 14:30) Ed Admission (Communication) (11/21/22 15:03) Medications Given in ED Vital Signs/I&O 11/21/22 11/21/22 14:19 15:30 Temp 36.3 37.0 Pulse 53 66 Resp 16 14 B/P (MAP) 134/91 (105) 137/87 (104) Pulse Ox 98 95 O2 Delivery Room Air Room Air Capillary Refill : Less Than 3 Seconds Blood Pressure Mean: 105 ECG Comment EKG shows profound difficulty with rate around 36 bpm but with pauses intermittently. No ST or T wave abnormalities. No ectopy. Critical Care Note Critical Care Total Time (minutes) 45 Departure Communication (Admissions) Patient initially treated with calcium, atropine with improvement in her heart rates temporarily. She is feeling much better. Symptomatic during her bradycardic. Especially during the pauses. She had severe dizziness. Troponins negative, electrolytes are unremarkable. She is not anemic. I spoke with Dr. Vásquez who requested further orders. Spoke with Dr. Ty who accepts patient in admission Impression Primary Impression: Bradycardia Additional Impression: Dizziness Disposition: ADMITTED INPATIENT Condition: Stable Admissions Decision to Admit Reason: Admit from ER (General) Departure-Patient Inst. Referrals: EM CAMACHO MD (PCP) Primary Care Physician DINA YANG (Family) Primary Care Physician Scripts Metoprolol Succinate (Metoprolol Succinate) 25 Mg Tab.er.24h 25 MG PO BID for 30 Days, #60 TAB Prov: JUJU TY MD 11/22/22 NICK GALLOWAY DO Nov 21, 2022 15:20
[2022-11-21 15:30] VITALS: BP 137/87
[2022-11-21] MEDS ORDERED: MILK OF MAGNESIA 400 MG/5 ML 30 ML UDC PO PRN (16:00)
[2022-11-21] MEDS ORDERED: ONDANSETRON 4 MG (ZOFRAN) ORAL DISSOLVE TAB PO PRN (16:00)
[2022-11-21] MEDS ORDERED: LACTULOSE SYRUP 10GM/15ML (ENULOSE) 30ML UDC PO PRN (16:00)
[2022-11-21] MEDS ORDERED: ONDANSETRON 4 MG/2 ML (SDV) Z0FRAN IV PRN (16:00)
[2022-11-21] MEDS ORDERED: MELATONIN 3 MG TABLET PO PRN (16:00)
[2022-11-21] MEDS ORDERED: ACETAMINOPHEN 325 MG TABLET PO PRN (16:00)
[2022-11-21] MEDS ORDERED: BISACODYL 10 MG SUPP (DULCOLAX) PR PRN (16:00)
[2022-11-21] MEDS ORDERED: ANTACID SUSP 30 ML UDC (MYLANTA) PO PRN (16:00)
[2022-11-21] MEDS ORDERED: CALCIUM CARBONATE 500 MG (TUMS) TAB.CHEW PO PRN (16:00)
[2022-11-21] MEDS ORDERED: NS IV 500 ML 500 ML IV PRN (16:00)
[2022-11-21] MEDS ORDERED: polyethylene glycoL POWDER 17 GM (MIRALAX) PACK PO PRN (16:00)
[2022-11-21] MEDS ORDERED: CATHETER FLUSH 10 ML SYR IVP PRN (16:15)
[2022-11-21] MEDS ORDERED: RIVA15TA PO (18:35)
[2022-11-21] MEDS ORDERED: CEPH250S PO (18:35)
[2022-11-21] MEDS ORDERED: TRAV2.5D6 OU (18:35)
[2022-11-21] MEDS ORDERED: ROSU10TA28 PO (18:35)
[2022-11-21] MEDS ORDERED: DORZ1DRO7 OP (18:38)
[2022-11-21 20:00] VITALS: BP 120/70
[2022-11-21] MEDS ORDERED: RIVAROXABAN 15 MG TABLET (XARELTO) PO ONE (20:00)
[2022-11-21] MEDS ORDERED: SERTRALINE 50 MG (ZOLOFT) TABLET PO SCH (21:00)
[2022-11-21] MEDS: SENNOSIDES 8.6 MG (SENOKOT) TAB PO SCH (21:51)
[2022-11-21] MEDS: DORZOLAMIDE/TIMOLOL (COSOPT) 2-0.68% 10 ML BTL OU SCH ×2 (21:51→21:59)
[2022-11-21] MEDS: CATHETER FLUSH 10 ML SYR IVP SCH (21:51)
[2022-11-21] MEDS: GABAPENTIN 100 MG (NEURONTIN) CAP PO SCH (21:51)
[2022-11-21] MEDS: DOCUSATE SODIUM 100 MG (COLACE) CAP PO SCH (21:51)
[2022-11-21] MEDS ORDERED: RIVAROXABAN 15 MG TABLET (XARELTO) ONE (21:58)
[2022-11-22] VITALS: BP 114/63
[2022-11-22 04:00] VITALS: BP 149/75
[2022-11-22 05:37] LABS: BASOPHILS # (AUTO) 0.1 10^3/uL (0.0-0.1); BASOPHILS % (AUTO) 1 % (0-10); EOSINOPHILS # (AUTO) 0.1 10^3/uL (0.0-0.3); EOSINOPHILS % (AUTO) 1 % (0-10); HEMATOCRIT 36 % (35-52); HEMOGLOBIN 12.4 g/dL (11.5-16.0); LYMPHOCYTES # (AUTO) 0.8 10^3/uL (1.0-4.0); LYMPHOCYTES % (AUTO) 11 % (12-44); MEAN CORPUSCULAR HEMOGLOBIN 31 pg (25-34); MEAN CORPUSCULAR HGB CONC 34 g/dL (32-36); MEAN CORPUSCULAR VOLUME 91 fL (80-99); MEAN PLATELET VOLUME 11.1 fL (9.0-12.2); MONOCYTES # (AUTO) 0.6 10^3/uL (0.0-1.0); MONOCYTES % (AUTO) 9 % (0-12); NEUTROPHILS # (AUTO) 5.4 10^3/uL (1.8-7.8); NEUTROPHILS % (AUTO) 79 % (42-75); PLATELET COUNT 179 10^3/uL (130-400); WHITE BLOOD COUNT 6.9 10^3/uL (4.3-11.0)
[2022-11-22 05:57] LABS: CALCIUM 9.7 MG/DL (8.5-10.1); CREATININE SERUM 0.89 MG/DL (0.60-1.30); MAGNESIUM 1.8 MG/DL (1.6-2.4); POTASSIUM 3.7 MMOL/L (3.6-5.0)
[2022-11-22] MEDS ORDERED: MAGNESIUM 1 GM/100 ML IVPB 100 ML IV SCH (06:00)
[2022-11-22] MEDS ORDERED: POTASSIUM BICARB 20 MEQ (EFFER-K) TABLET PO SCH (06:00)
[2022-11-22] MEDS ORDERED: KCL 20 MEQ TAB (K-DUR) PO SCH (06:00)
[2022-11-22] MEDS ORDERED: POTASSIUM CL 10MEQ/50ML IVPB 50 ML IV SCH (06:00)
[2022-11-22] MEDS: CATHETER FLUSH 10 ML SYR IVP SCH (06:31)
[2022-11-22] MEDS ORDERED: MAGNESIUM 1 GM/100 ML IVPB 0 ML IV ONE (06:41)
[2022-11-22] MEDS ORDERED: KCL 20 MEQ TAB (K-DUR) PO ONE (06:45)
[2022-11-22] MEDS: MAGNESIUM 1 GM/100 ML IVPB 100 ML IV SCH (06:48)
[2022-11-22 08:00] VITALS: BP 134/70
--- NOTE | 2022-11-22 08:14 | Consultation-Cardiology ---
HPI-Cardiology Cardiology Consultation Date of Consultation 11/22/22 Date of Admission Time Seen by Provider: 08:10 Indication: Bradycardia HPI 82-year-old lady with history of chronic permanent atrial fibrillation. Heart rate is usually controlled, reporting episodes of dizziness and lightheadedness associated with bradycardia. She was seen in [place] emergency room recently and her metoprolol was decreased to 50 mg twice daily. Had another episode yesterday and came to the emergency room here, she was reportedly had a pink heart rate in the 30s which bounced quickly back to the 70s and 80s. Overnight she has been doing well. She denied any chest pain, no shortness of breath. No full syncope but she had multiple near syncopal episodes. No claudication. Home Medications & Allergies Allergies: Coded Allergies: No Known Drug Allergies (Unverified , 12/11/18) Home Medication List Reviewed: Yes IEK-Iaambe-Asnnqt Hx Patient Social History Marital Status: single Employed/Student: retired Smoking Status: Never a Smoker 2nd Hand Smoke Exposure: No Recent Hopitalizations: No Have you traveled recently?: No Alcohol Use?: No Immunizations Up To Date Date of Pneumonia Vaccine: December 11, 1996 Past Medical History Discussed below Family Medical History Significant Family History: No Pertinent Family Hx Family History: Cardiovascular disease G8 BROTHER FH: cancer 19 MOTHER Review of Systems-General Review of Systems Constitutional: see HPI, malaise, weakness EENTM: see HPI, no symptoms reported Respiratory: see HPI; No cough, No dyspnea on exertion, No hemoptysis, No orthopnea, No phlegm, No short of breath, No stridor, No wheezing, No other Cardiovascular: see HPI; No chest pain, No edema, No Hx of Intervention, No palpitations, No syncope, No vascular heart diseas; other (Near syncope) Gastrointestinal: no symptoms reported, see HPI Genitourinary: no symptoms reported, see HPI Musculoskeletal: no symptoms reported, see HPI Skin: no symptoms reported, see HPI Psychiatric/Neurological: No Symptoms Reported, See HPI Reviewed Test Results Reviewed Test Results Lab Laboratory Tests Test 11/21/22 14:19 11/22/22 04:56 Range/Units White Blood Count 8.4 6.9 4.3-11.0 10^3/uL Red Blood Count 3.99 3.99 3.80-5.11 10^6/uL Hemoglobin 12.4 12.4 11.5-16.0 g/dL Hematocrit 37 36 35-52 % Mean Corpuscular Volume 93 91 80-99 fL Mean Corpuscular Hemoglobin 31 31 25-34 pg Mean Corpuscular Hemoglobin Concent 33 34 32-36 g/dL Red Cell Distribution Width 13.1 12.9 10.0-14.5 % Platelet Count 201 179 130-400 10^3/uL Mean Platelet Volume 11.2 11.1 9.0-12.2 fL Immature Granulocyte % (Auto) 1 0 % Neutrophils (%) (Auto) 81 H 79 H 42-75 % Lymphocytes (%) (Auto) 10 L 11 L 12-44 % Monocytes (%) (Auto) 7 9 0-12 % Eosinophils (%) (Auto) 1 1 0-10 % Basophils (%) (Auto) 1 1 0-10 % Neutrophils # (Auto) 6.9 5.4 1.8-7.8 10^3/uL Lymphocytes # (Auto) 0.8 L 0.8 L 1.0-4.0 10^3/uL Monocytes # (Auto) 0.6 0.6 0.0-1.0 10^3/uL Eosinophils # (Auto) 0.1 0.1 0.0-0.3 10^3/uL Basophils # (Auto) 0.1 0.1 0.0-0.1 10^3/uL Immature Granulocyte # (Auto) 0.0 0.0 0.0-0.1 10^3/uL Sodium Level 137 140 135-145 MMOL/L Potassium Level 4.6 3.7 3.6-5.0 MMOL/L Chloride Level 107 108 H 98-107 MMOL/L Carbon Dioxide Level 21 19 L 21-32 MMOL/L Anion Gap 9 13 5-14 MMOL/L Blood Urea Nitrogen 17 14 7-18 MG/DL Creatinine 0.98 0.89 0.60-1.30 MG/DL Estimat Glomerular Filtration Rate 58 65 BUN/Creatinine Ratio 17 16 Glucose Level 122 H 98 70-105 MG/DL Calcium Level 9.1 9.7 8.5-10.1 MG/DL Magnesium Level 2.0 1.8 1.6-2.4 MG/DL Physical Exam Physical Exam Vital Signs Vital Signs - First Documented 11/21/22 11/21/22 14:19 15:38 Temp 36.3 Pulse 53 Resp 16 B/P (MAP) 134/91 (105) Pulse Ox 98 O2 Delivery Room Air O2 Flow Rate 2.00 Capillary Refill : Less Than 3 Seconds Height, Weight, BMI Height: 5'5.50" Weight: 163lbs. 0.6oz. 73.555340sy; 28.54 BMI Method:Stated General Appearance: No Apparent Distress, WD/WN Eyes: Bilateral Eye Normal Inspection, Bilateral Eye PERRL, Bilateral Eye EOMI HEENT: Normal ENT Inspection, Pharynx Normal Neck: Normal Inspection, Non Tender, Supple Respiratory: Chest Non Tender, Lungs Clear, Normal Breath Sounds Cardiovascular: Normal Peripheral Pulses, Systolic Murmur, Irregularly Irregular Gastrointestinal: Non Tender, Soft Back: Normal Inspection, No CVA Tenderness, No Vertebral Tenderness Extremity: Normal Capillary Refill, No Pedal Edema Neurologic/Psychiatric: Alert, Oriented x3 Skin: Normal Color, Warm/Dry Lymphatic: No Adenopathy A/P-Cardiology Admission Diagnosis Near syncope Bradycardia Atrial fibrillation Hypertension Assessment/Plan Near syncope, probably secondary to bradycardia. Will decrease metoprolol to 25 mg twice daily Patient was on diltiazem at one point in the past, currently not taking any calcium channel blockers Chronic permanent atrial fibrillation, had episode of rapid ventricular respons e. Heart rate better controlled We discussed the management plan, we will continue to taper down her beta- doris dose and monitor, consideration for permanent pacemaker implantation and increasing the beta-doris if she started to alternate between tacky and bradycardia episodes. History of atrial flutter, ablation done by Dr. Siegel in February 2019 History of CVA in 2019 most likely secondary to atrial fibrillation Hypertension, controlled Monitor blood pressure Generalized debility/weakness with unsteady gait and frequent falls Valvular heart disease: Patient has moderate tricuspid regurgitation, mild aortic regurgitation. Hx of Chronic kidney disease,renal function improved, continue to monitor. SHARRI MONTAÑO MD Nov 22, 2022 08:14
[2022-11-22] MEDS: GABAPENTIN 100 MG (NEURONTIN) CAP PO SCH (08:41)
[2022-11-22] MEDS: DORZOLAMIDE/TIMOLOL (COSOPT) 2-0.68% 10 ML BTL OU SCH (08:41)
[2022-11-22] MEDS: SENNOSIDES 8.6 MG (SENOKOT) TAB PO SCH (08:41)
[2022-11-22] MEDS: DOCUSATE SODIUM 100 MG (COLACE) CAP PO SCH (08:41)
[2022-11-22] MEDS ORDERED: SERTRALINE 50 MG (ZOLOFT) TABLET PO SCH (09:00)
[2022-11-22] MEDS ORDERED: CALC600T91 PO (10:32)
[2022-11-22] MEDS ORDERED: CEPH250C PO (10:32)
[2022-11-22] MEDS ORDERED: DILT300T7 PO (10:32)
[2022-11-22] MEDS ORDERED: MULT200T12 PO (10:32)
[2022-11-22] MEDS ORDERED: DORZ10DR8 OU (10:32)
[2022-11-22] MEDS ORDERED: DILT360T9 PO (10:32)
[2022-11-22 12:02] VITALS: BP 118/72
--- NOTE | 2022-11-22 12:44 | Short Stay Summary-Hospitalist ---
YOSEPH CROWLEY 11/22/22 1244: History of Present Illness HPI/Chief Complaint Barb Sellers is a 82yo female with past medical history of atrial fibrillation and HTN presenting due to syncope. Pt states that this has occurred on November 13 twice and again yesterday w/o preceding symptoms and amnesia. Each episode of syncope she has fallen into chair w/o trauma. Visited [place] ED and was told to decrease her metoprolol amount to 50mg BID. Pt doesn't state any aggravating symptoms, but claims to feel better after sleep. Associated symptoms include palpitations with exertion and resolves shortly after. Pt denies fever, chills, N/V/D, Dizziness, Chest Pain, Cough, and Congestion. Source: patient Exam Limitations: no limitations Date Seen 11/22/22 Time Seen by a Provider: 08:30 Attending Physician Radha Davila PCP Admitting Physician: Monserrat Ty MD Attending Physician: Monserrat Ty MD Referring Physician Date of Admission Nov 21, 2022 at 15:37 Home Medications & Allergies Home Medications Reviewed patient Home Medication Reconciliation performed by pharmacy medication reconciliations photocopier technician and/or nursing. Patients Allergies have been reviewed. Allergies Allergies Coded Allergies No Known Drug Allergies (Unverified12/11/18) Past Medical/Social/Family Hx Patient Social History Marrital Status: single Employed/Student: retired Tobacco Use?: No Smoking Status: Never a Smoker Smokeless Tobacco Frequency: Never a User Use of E-Cig and/or Vaping dev: No Substance use?: No Alcohol Use?: No Pt stated abuse/neglect: No Immunizations Up To Date Influenza Vaccine Up-to-Date: Yes; Up-to-Date Second COVID19 Vaccination Roland: UNKNOWN Tetanus Booster (TDap): Less Than 5 Years Hepatitis A: No Hepatitis B: No TB Skin Test: None Date of Pneumonia Vaccine: December 11, 1996 Current Status status: No status: No Advance Directives: Yes Advance Directive Location: Copy placed in chart Communicates: Verbally Primary Language: Albanian Preferred Spoken Language: Albanian Is interpretation needed?: No Sensory deficits: Vision impairment Implanted or Applied Medical D: None Past Medical History Atrial Fibrillation Hypertension GERD Anxiety Family Medical History Family Hx: Brother- Cardiovascular Disease Review of Systems Constitutional: No chills, No dizziness, No fever Respiratory: No cough, No phlegm Cardiovascular: No chest pain; palpitations Gastrointestinal: No abdominal pain, No diarrhea, No nausea, No vomiting Genitourinary: incontinence (stress) Physical Exam Physical Exam Vital Signs Vital Signs - First Documented 11/21/22 11/21/22 14:19 15:38 Temp 36.3 Pulse 53 Resp 16 B/P (MAP) 134/91 (105) Pulse Ox 98 O2 Delivery Room Air O2 Flow Rate 2.00 Capillary Refill : Less Than 3 Seconds Height, Weight, BMI Height: 5'5.50" Weight: 163lbs. 0.6oz. 73.781950xi; 28.54 BMI Method:Stated General Appearance: No Apparent Distress, WD/WN Neck: Normal Inspection, Non Tender, Supple Respiratory: Chest Non Tender, Lungs Clear, Normal Breath Sounds Cardiovascular: Normal Peripheral Pulses, Systolic Murmur, Irregularly Irregular Gastrointestinal: Non Tender, Soft Extremity: Normal Capillary Refill, No Pedal Edema Neurologic/Psychiatric: Alert, Oriented x3 Skin: Normal Color, Warm/Dry Lymphatic: No Adenopathy Results Results/Procedures Labs Laboratory Tests 11/21/22 14:19 11/22/22 04:56 Patient resulted labs reviewed. Short Stay Diagnosis Discharge Diagnosis-Short Stay Admission Diagnosis Bradycardia Final Discharge Diagnosis Bradycardia Secondary to Metoprolol Dosage Conclusion Plan Bradycardia Atropine and Calcium Gluconate given ED Decrease Metoprolol 25mg BID Heart Monitor f/u w/ Dr. Vásquez Atrial Fibrillation Rivaroxaban HTN - Controlled Anxiety Sertraline Glaucoma Dorzolamide Diagnosis/Problems Diagnosis/Problems (1) Symptomatic bradycardia Status: Acute (2) Afib Status: Chronic (3) Hypertension Status: Chronic (4) GERD (gastroesophageal reflux disease) Status: Chronic (5) Anxiety Status: Chronic MONSERRAT TY MD 11/22/22 1437: History of Present Illness Time Seen by a Provider: 10:00 Short Stay Diagnosis Discharge Diagnosis-Short Stay Admission Diagnosis Symptomatic bradycardia Final Discharge Diagnosis Symptomatic bradycardia due to beta doris toxicity Conclusion Plan Admitted with symptomatic bradycardia. Metoprolol held and bradycardia resolved. Dose decreased and will follow up with Cardiology. Diagnosis/Problems Diagnosis/Problems (1) Anxiety Status: Chronic (2) GERD (gastroesophageal reflux disease) Status: Chronic (3) Hypertension Status: Chronic (4) Afib Status: Chronic (5) Symptomatic bradycardia Status: Acute (6) Beta doris toxicity Status: Acute Supervisory-Addendum Brief Verification & Attestation Participated in pt care: history, MDM, physical Personally performed: exam, history, MDM, supervision of care Care discussed with: Medical Student Procedures: n/a Results interpretation: Verified all documentation A medical student performed and documented this service in my presence. I reviewed and verified all information documented by the medical student and made modifications to such information, when appropriate. I personally performed the physical exam and medical decision making. YOSEPH CROWLEY Nov 22, 2022 12:44 MONSERRAT TY MD Nov 22, 2022 14:37
[2022-11-22] MEDS ORDERED: MTP25TSR PO (12:59)
[2022-11-22] MEDS ORDERED: RIVAROXABAN 15 MG TABLET (XARELTO) PO SCH (17:00)
== END 2022-11-22 13:40 | disposition home or self-care (01) ==
LOC: ER 14:17 → EDUNIT# 14:17 → CSD 15:37
PROVIDERS: ADMIT Internal Medicine; ATTEND Internal Medicine
DX: R00.1 Bradycardia, unspecified (principal); T44.7X5A Adverse effect of beta-adrenoreceptor antagonists, initial encounter; R55 Syncope and collapse; I48.20 Chronic atrial fibrillation, unspecified; I48.21 Permanent atrial fibrillation; I08.2 Rheumatic disorders of both aortic and tricuspid valves; I12.9 Hypertensive chronic kidney disease with stage 1 through stage 4 chronic kidney disease, or unspecified chronic kidney disease; I48.91 Unspecified atrial fibrillation; H40.9 Unspecified glaucoma; R26.81 Unsteadiness on feet; N18.9 Chronic kidney disease, unspecified; R29.6 Repeated falls; F41.9 Anxiety disorder, unspecified; W07.XXXA Fall from chair, initial encounter; Z79.899 Other long term (current) drug therapy; Z86.79 Personal history of other diseases of the circulatory system
CPT/HCPCS: 80048 ×2; 83735 ×2; 85025 ×2; 93005; 96375; 96376; 99284; G0378; 36415

== ENCOUNTER 2023-01-25 21:51 | Inpatient (IN) | payer MEDICARE ==
[~2023-01-25] VITALS: Ht 165.1 cm; Wt 77.4 kg
[~2023-01-25 21:51] MED LIST changes: +CALC600T91 PO; +CEPH250C PO; +CEPH250S PO; +DILT300T7 PO; +DILT360T9 PO; +DORZ10DR36 OU; +DORZ1DRO7 OP; +MTP25TSR PO; +MULT200T12 PO; +RIVA15TA PO; +ROSU10TA28 PO; +TRAV2.5D6 OU
[2023-01-25] MEDS ORDERED: polyethylene glycoL POWDER 17 GM (MIRALAX) PACK PO PRN (22:15)
[2023-01-25] MEDS ORDERED: BISACODYL 10 MG SUPP (DULCOLAX) PR PRN (22:15)
[2023-01-25] MEDS ORDERED: ONDANSETRON 4 MG/2 ML (SDV) Z0FRAN IV PRN (22:15)
[2023-01-25] MEDS ORDERED: ANTACID SUSP 30 ML UDC (MYLANTA) PO PRN (22:15)
[2023-01-25] MEDS ORDERED: ONDANSETRON 4 MG (ZOFRAN) ORAL DISSOLVE TAB PO PRN (22:15)
[2023-01-25] MEDS ORDERED: CALCIUM CARBONATE 500 MG (TUMS) TAB.CHEW PO PRN (22:15)
[2023-01-25] MEDS: ACETAMINOPHEN 325 MG TABLET PO PRN (22:37)
[2023-01-25] MEDS: MELATONIN 3 MG TABLET PO PRN (22:43)
--- NOTE | 2023-01-26 00:33 | Tele-ICU Progress Note ---
Progress Note 82F with afib, CVA, HTN presented after fall. Per report, patient has been having syncopal episodes with seizure like activity lasting 2-3 seconds at a time. She recovers without post ictal period. Denies CP, SOB, palpitations. At [facility] she was found to be in afib with bradycardic rate with several long pauses. She was given atropine x3 without improvement. Transferred for cardiac evaluation. On evaluation she has afib with rates in the 30s, BP stable at 119/79-134/80. Had some impending doom which has resolved. Now just restless and anxious, requesting something to help. A/P: - Bradycardia: hold home metoprolol and diltiazem and re-evaluate. No actue renal failure that would increase levels. Unclear why she has become dave now with stable rx. No indication for dopamine or pacing with normal BP. If she becomes hypotensive will consider use of high dose glucagon for beta doris antidote and calcium/insulin/dextrose for calcium channel doris toxicity. - anxiety: limited options with bradycardia. Will try a dose of zyprexa. Patient assessed via real time audiovisual communication system. CCT 10 min Focused Exam Height, Weight, BMI Height: 5'5.50" Weight: 163lbs. 0.6oz. 73.722784ky; 29.12 BMI Method:Stated JEROME VASQUEZ MD Jan 26, 2023 00:33
[2023-01-26 00:40] VITALS: BP 119/79
[2023-01-26] MEDS ORDERED: OLANZapine 5 MG ODT (ZyPREXA ZYDIS) PO ONE (01:00)
[2023-01-26 04:11] LABS: BASOPHILS % (AUTO) 0 % (0-10); EOSINOPHILS % (AUTO) 0 % (0-10); HEMATOCRIT 36 % (35-52); HEMOGLOBIN 12.3 g/dL (11.5-16.0); LYMPHOCYTES # (AUTO) 0.6 10^3/uL (1.0-4.0); LYMPHOCYTES % (AUTO) 4 % (12-44); MEAN CORPUSCULAR HEMOGLOBIN 31 pg (25-34); MEAN CORPUSCULAR HGB CONC 34 g/dL (32-36); MEAN CORPUSCULAR VOLUME 92 fL (80-99); MEAN PLATELET VOLUME 10.6 fL (9.0-12.2); MONOCYTES # (AUTO) 0.5 10^3/uL (0.0-1.0); MONOCYTES % (AUTO) 4 % (0-12); NEUTROPHILS # (AUTO) 12.1 10^3/uL (1.8-7.8); NEUTROPHILS % (AUTO) 91 % (42-75); PLATELET COUNT 227 10^3/uL (130-400); WHITE BLOOD COUNT 13.3 10^3/uL (4.3-11.0)
[2023-01-26 04:25] LABS: ALBUMIN 3.9 GM/DL (3.2-4.5); POTASSIUM 5.2 MMOL/L (3.6-5.0)
[2023-01-26 04:26] LABS: CALCIUM 9.2 MG/DL (8.5-10.1)
[2023-01-26 04:27] LABS: TOTAL PROTEIN 6.5 GM/DL (6.4-8.2)
[2023-01-26 04:29] LABS: BILIRUBIN,TOTAL 1.4 MG/DL (0.1-1.0)
[2023-01-26 04:31] LABS: CREATININE SERUM 1.44 MG/DL (0.60-1.30); PHOSPHORUS 3.8 MG/DL (2.3-4.7)
[2023-01-26 04:34] LABS: MAGNESIUM 1.7 MG/DL (1.6-2.4)
[2023-01-26 04:37] LABS: ELLIPT/OVALOCYTES SLIGHT; LYMPHOCYTES % (MANUAL) 6 %; MONOCYTES % (MANUAL) 3 %; NEUTROPHILS % (MANUAL) 91 %; POIKILOCYTOSIS SLIGHT
[2023-01-26] MEDS ORDERED: NS IV 500 ML 500 ML IV PRN (05:00)
[2023-01-26] MEDS: POTASSIUM CL 10MEQ/50ML IVPB 50 ML IV SCH (05:50)
[2023-01-26] MEDS: MAGNESIUM 1 GM/100 ML IVPB 100 ML IV SCH ×4 (05:50→07:48)
[2023-01-26] MEDS: KCL 20 MEQ TAB (K-DUR) PO SCH (05:51)
--- NOTE | 2023-01-26 08:48 | Tele-ICU Progress Note ---
Progress Note 82 y/o female admitted with bradycardia Has hx of a fib. Now A fib/flutter with 3rd degree block BP 137/95 this am HR: 30-50 fib/flutter Was on xarelto in the past, currently not. IMP: 3rd degree with heart block with fib/fluttre PLAN: awaiting cardiology eval, will likely need pacer Time spent in evaluation and assesment and review of EK minutes. I am remotely evaluating this patient from another state and cannot directly exam the patient. Assessment based upon review of records and video evaluation. Focused Exam Height, Weight, BMI Height: 5'5.50" Weight: 163lbs. 0.6oz. 73.060706yw; 29.45 BMI Method:Stated Labs Laboratory Tests 01/26/23 03:57 Results Results/Procedures Labs Laboratory Tests 01/26/23 03:57 Patient resulted labs reviewed. Results Labs Labs Laboratory Tests 01/26/23 03:57: White Blood Count 13.3H, Red Blood Count 3.94, Hemoglobin 12.3, Hematocrit 36, Mean Corpuscular Volume 92, Mean Corpuscular Hemoglobin 31, Mean Corpuscular Hemoglobin Concent 34, Red Cell Distribution Width 13.6, Platelet Count 227, Mean Platelet Volume 10.6, Immature Granulocyte % (Auto) 0, Neutrophils (%) (Auto) 91H, Lymphocytes (%) (Auto) 4L, Monocytes (%) (Auto) 4, Eosinophils (%) (Auto) 0, Basophils (%) (Auto) 0, Neutrophils # (Auto) 12.1H, Lymphocytes # (Auto) 0.6L, Monocytes # (Auto) 0.5, Eosinophils # (Auto) 0.0, Basophils # (Auto) 0.0, Immature Granulocyte # (Auto) 0.0, Neutrophils % (Manual) 91, Lymphocytes % (Manual) 6, Monocytes % (Manual) 3, Poikilocytosis SLIGHT, Ellipto cytes SLIGHT, Sodium Level 134L, Potassium Level 5.2H, Chloride Level 107, Carbon Dioxide Level 16L, Anion Gap 11, Blood Urea Nitrogen 24H, Creatinine 1.44H, Estimat Glomerular Filtration Rate 37, BUN/Creatinine Ratio 17, Glucose Level 192H, Calcium Level 9.2, Corrected Calcium 9.3, Phosphorus Level 3.8, Magnesium Level 1.7, Total Bilirubin 1.4H, Aspartate Amino Transf (AST/SGOT) 47H , Alanine Aminotransferase (ALT/SGPT) 34, Alkaline Phosphatase 94, Total Protein 6.5, Albumin 3.9 THERESE SHEPHERD MD Jan 26, 2023 08:48
--- NOTE | 2023-01-26 10:06 | History & Physical-Hospitalist ---
History of Present Illness HPI/Chief Complaint Pt is an 82yoCF with a PMH of a fib/flutter s/p ablation who presented to OSH due to fall, confusion and seizurelike activity. Pt is unable to provide any history due to confusion. Per family and reports from OSH she was having short episode of seizure like episodes. She was found to be bradycardiac into the thirties with a few seconds long pauses. She was transferred here for cardiology evaluation. Overnight this has continued but she has not had any further seizure like episodes. Shortly before I entered the room I was reviewing her telemetry and noticed her drop her rate to 19. Family states she did not have any symptoms with this but they noticed she looked different and saw it on the monitor and wondered if that was why. Recovered quickly to the high 30s and 40s. Source: patient, family Exam Limitations: clinical condition Date Seen 01/26/23 Time Seen by a Provider: 08:30 Attending Physician Radha Davila PCP Admitting Physician: Norah Andrews MD Attending Physician: Norah Andresw MD Referring Physician Date of Admission Jan 25, 2023 at 21:51 Home Medications & Allergies Home Medications Reviewed patient Home Medication Reconciliation performed by pharmacy medication reconciliations master automotive glass technician and/or nursing. Patients Allergies have been reviewed. Allergies Allergies Coded Allergies No Known Drug Allergies (Unverified12/11/18) Past Unucvio-Ooynyd-Lishnr Hx Patient Social History Employed/Student: retired Tobacco Use?: No Smoking Status: Never a Smoker Smokeless Tobacco Frequency: Never a User Use of E-Cig and/or Vaping dev: No Substance use?: No Alcohol Use?: No Pt feels they are or have been: No Immunizations Up To Date Second COVID19 Vaccination Roland: UNKNOWN Tetanus Booster (TDap): Less Than 5 Years Hepatitis A: No Hepatitis B: No Date of Pneumonia Vaccine: December 11, 1996 Current Status Advance Directives: Yes Advance Directive Location: Home Communicates: Verbally Primary Language: Ukrainian Preferred Spoken Language: Ukrainian Is interpretation needed?: No Sensory deficits: Vision impairment Implanted or Applied Medical D: Orthopedic hardware Past Medical History Surgeries: Section, Joint Replacement Atrial Fibrillation, High Cholesterol, Hypertension Stroke Gastroesophageal Reflux, Hemorrhoids Blood Disorders: No Adverse Reaction/Blood Tranf: No Atrial Fibrillation Hypertension GERD Anxiety Family Medical History Reviewed Nursing Family Hx Cardiovascular disease G8 BROTHER FH: cancer 19 MOTHER No Pertinent Family Hx Brother- Cardiovascular Disease Review of Systems Constitutional: see HPI Physical Exam Physical Exam Vital Signs Vital Signs - First Documented 01/25/23 01/26/23 01/26/23 21:45 00:00 00:40 Temp 36.5 Pulse 67 B/P (MAP) 171/110 (130) Pulse Ox 91 O2 Delivery Room Air FiO2 21 Capillary Refill : Less Than 3 Seconds Height, Weight, BMI Height: 5'5.50" Weight: 163lbs. 0.6oz. 73.819702ps; 29.45 BMI Method:Stated General Appearance: Chronically ill, Mild Distress (confused) Respiratory: Lungs Clear, No Respiratory Distress Cardiovascular: No Murmur, Bradycardia Gastrointestinal: Normal Bowel Sounds, Non Tender, Soft Extremity: No Calf Tenderness, No Pedal Edema Neurologic/Psychiatric: Alert, Disoriented Results Results/Procedures Labs Laboratory Tests 01/26/23 03:57 01/27/23 03:10 Patient resulted labs reviewed. Assessment/Plan Admission Diagnosis Bradycardia Admission Status: Inpatient Order (span 2 midnights) Reason for Inpatient Admission: see below Assessment and Plan Bradycardia h/o a fib with ablation rates down to the teens this AM with pauses Cardiology consulted, appreciate recs- defer management to them Spoke to Dr Siegel and he recommended supportive are and seeing if improvement with holding BB and CCB Monitor on telemetry Pt attached to pads in case she needs temp pacing and crash cart in the room Hold Xarelto for possible pacemaker unless cardiology decides otherwise Confusion New per patient family Likely due to bradycardia Supportive care HLD Depression No acute needs DVT ppx: SCDs Diagnosis/Problems Diagnosis/Problems (1) Delirium (2) Hyperlipidemia Qualifiers: Hyperlipidemia type: unspecified Qualified Codes: E78.5 - Hyperlipidemia, unspecified (3) Depression Qualifiers: Depression Type: unspecified Qualified Codes: F32.A - Depression, unspecified (4) Symptomatic bradycardia Status: Acute (5) Beta doris toxicity Status: Acute (6) Hypertension Status: Chronic Qualifiers: Hypertension type: primary hypertension Qualified Codes: I10 - Essential (primary) hypertension (7) Atrial flutter Qualifiers: Atrial flutter type: unspecified Qualified Codes: I48.92 - Unspecified atrial flutter NORAH ANDREWS MD Jan 26, 2023 10:06
[2023-01-26] MEDS ORDERED: fentaNYL INJ 100 MCG/2 ML AMP ONE (11:12)
[2023-01-26] MEDS ORDERED: MIDAZOLAM 2 MG/2 ML (VERSED) VIAL ONE (11:13)
[2023-01-26] MEDS ORDERED: LIDOCAINE 1% INJ 20 ML VIAL ONE (11:13)
[2023-01-26] MEDS ORDERED: HEParin (CATH LAB) 1,000 ML IV ONE (11:13)
[2023-01-26] MEDS ORDERED: NS IV 1000 ML 1,000 ML ONE (11:14)
[2023-01-26] MEDS: ENOXAPARIN 80 MG/0.8 ML (LOVENOX) SYR SC SCH ×2 (11:25→23:33)
--- NOTE | 2023-01-26 12:19 | Cardiac Procedure Note-CS/ASA ---
Pre-Procedure Note Pre-Op Procedure Note Date H&P Reviewed: Jan 26, 2023 Time H&P Reviewed: 10:30 History & Physical: H&P Reviewed, Patient Examed, No changes noted Pre-Operative Diagnosis: slow afib Moderate Sedation PreProcedure Time 10:30 ASA Score 3 Airway Lungs Heart ASA score ASA 1: a normal healthy patient ASA 2: a patient with a mild systemic disease (mid diabetes, controlled hypertension, obesity ASA 3: a patient with a severe systemic disease that limits activity (angina, COPD, prior Myocardial infarction) ASA 4: a patient with an incapacitating disease that is a constant threat to life (CHF, renal failure) ASA 5: a moribund patient not expected to survive 24 hrs. (ruptured aneurysm) ASA 6: a declared brain- patient whose organs are being harvested. For emergent operations, add the letter E after the classification Mallampati Classification Grade 1 Sedation Plan Analgesia, Amnesia, Plan communicated to team members, Discussed options with patient/fam, Discussed risks with patient/fam The patient is an appropriate candidate to undergo the planned procedure, sedation, and anesthesia. The patient immediately re-assessed prior to indication. Brooklyn KUHN MD Jan 26, 2023 12:19
--- NOTE | 2023-01-26 12:24 | Cardiology Post Procedure Note ---
Post-Procedure Note Physician (s)/Piggyback Clerk (s) Physician Brooklyn KUHN MD Piggyback Clerk (s) Trip Pre-Procedure Diagnosis Pre-Procedure Diagnosis: slow afib Post-Procedure Note Procedure Start Date: Jan 26, 2023 Procedure Start Time: 11:49 Name of Procedure: Temporary pacemaker Findings/Procedure Note The patient was brought to the It Service Technician after informed consent was taken from the patient and for her daughter. She was draped and prepped in the usual sterile fashion. Access was gained in the right femoral vein with a 5 [place] sheath. A balloontipped pacemaker was advanced and placed in the RV apex. Capture threshold was 0.3 mV. Stability was confirmed. The sheath will be sutured and the temporary pacemaker will be secured in place. Patient tolerated procedure well did not have any complication. Anesthesia Type: Fetanyl Estimated blood loss (mL): 5 Contrast Amount: 0 Post-Procedure Diagnosis Post-operative diagnosis: Slow atrial fibrillation with significant pauses, s/p temporary pacemaker placement. Brooklyn KUHN MD Jan 26, 2023 12:24
[2023-01-26] MEDS ORDERED: PATIENT MAY USE OWN MEDS, ALL PO SCH (12:30)
--- NOTE | 2023-01-26 12:42 | Diagnostic Imaging Report ---
PROCEDURE: CT head without contrast. TECHNIQUE: Multiple contiguous axial images were obtained through the brain without the use of intravenous contrast. Auto Exposure Controls were utilized during the CT exam to meet ALARA standards for radiation dose reduction. INDICATION: Confusion, fall. COMPARISON: 01/24/2021. FINDINGS: Mild atrophy. No intracranial hemorrhage. No intracranial mass, mass effect, midline shift, herniation, hydrocephalus, or extra-axial fluid collection. Periventricular and subcortical white matter hypodensities are present, most consistent with mild background chronic small vessel white matter ischemic disease. Calcifications are again identified within the bilateral basal ganglia. No CT evidence of an acute ischemic infarction. The bilateral ocular lenses are absent. Background vascular calcifications. Minimal opacification of some left mastoid air cells. Otherwise, the paranasal sinuses are clear. The calvarium and extracalvarial soft tissues are unremarkable. IMPRESSION: No acute intracranial abnormality with mild atrophy and mild background chronic small vessel white matter ischemic disease. Additional findings as above. Dictated by: Dictated on workstation # [id number]
[2023-01-26] MEDS: NS IV 1000 ML 1,000 ML IV SCH ×2 (12:49→22:10)
--- NOTE | 2023-01-26 12:51 | Consultation-Cardiology ---
HPI-Cardiology Cardiology Consultation: Date of Consultation 01/26/23 Date of Admission Attending Physician Radha Davila Admitting Physician Admitting Physician: Doris Levin MD Attending Physician: Doris Levin MD Consulting Physician Brooklyn KUHN MD HPI: Time Seen by a Provider: 10:25 Chief Complaint: Bradycardia 82-year-old lady who has previous history of atrial flutter ablation done 2 years ago. She presented to [facility] after she fell and was confused and may have seizure-like activity. I am not sure if a CT head was done in [facility]. Since the patient is on Xarelto. The daughter and granddaughter were in the room. They tell me that she has had previous falls and concussions in the past and this looks similar. However we are not sure if during the fall the patient had any head trauma. Also it was noted that the patient does have permanent/longstanding persistent atrial fibrillation and was bradycardic in the ER. Long pauses were noted. She was transferred to our hospital for further evaluation and management. She was previously on a beta- doris and Cardizem which were held overnight. Previously in November 2022, I see that Dr. Vásquez was considering a permanent pacemaker. Review of Systems-Cardiology Review of Systems Constitutional: tiredness Eyes: no symptoms reported Ears/Nose/Throat: no symptoms reported Respiratory: no symptoms reported Cardiovascular: irregular heart rate, other (Bradycardia) Gastrointestinal: no symptoms reported Genitourinary: no symptoms reported Musculoskeletal: no symptoms reported Skin: no symptoms reported Psychiatric/Neurological: As described under HPI Hematologic: no symptoms reported [id number] Hx Patient Social History Employed/Student: retired Smoking Status: Never a Smoker 2nd Hand Smoke Exposure: No Alcohol Use?: No Pt feels they are or have been: No Immunizations Up To Date Date of Pneumonia Vaccine: December 11, 1996 Past Medical History PMH As described under Assessment. Family Medical History Family History: Cardiovascular disease G8 BROTHER FH: cancer 19 MOTHER Allergies and Home Medications Allergies Coded Allergies: No Known Drug Allergies (Unverified , 12/11/18) Patient Home Medication List Home Medication List Reviewed: Yes Calcium Carbonate (Calcium) 600 Mg Calcium (1500 Mg) Tablet, 600 MG PO DAILY, (Reported) Entered as Reported by: ANJELICA SOTO on 11/22/22 1032 Cephalexin (Cephalexin) 250 Mg Capsule, 250 MG PO QID, (Reported) Entered as Reported by: ANJELICA SOTO on 11/22/22 103 Diltiazem HCl (Matzim LA) 360 Mg Tab.er.24h, 360 MG PO DAILY, (Reported) Entered as Reported by: ANJELICA SOTO on 11/22/22 103 Docusate Sodium (Colace) 100 Mg Capsule, 100 MG PO DAILY, (Reported) Entered as Reported by: ANJELICA SOTO on 01/25/21 0844 Dorzolamide HCl/Timolol Maleat (Dorzolamide-Timolol Eye Drops) 22.3 Mg-6.8 Mg/Ml Drops, 1 DROP OU BID, (Reported) Entered as Reported by: ANJELICA SOTO on 11/22/22 103 Gabapentin (Gabapentin) 100 Mg Capsule, 100 MG PO TID, (Reported) Entered as Reported by: ANJELICA SOTO on 01/25/21 08 Metoprolol Succinate (Metoprolol Succinate) 25 Mg Tab.er.24h, 25 MG PO BID Prescribed by: JUJU TY on 11/22/22 1259 Multivit-Minerals/Folic Acid (Multivitamin Gummies) 200 Mcg Tab.chew, 1 EA PO BID, (Reported) Entered as Reported by: ANJELICA SOTO on 11/22/221031 Rivaroxaban (Xarelto) 15 Mg Tablet, 15 MG PO DAILY, (Reported) Entered as Reported by: JAIME RAHMAN on 11/21/221834 Rosuvastatin Calcium (Rosuvastatin Calcium) 10 Mg Tablet, 10 MG PO DAILY, (Reported) Entered as Reported by: JAIME RAHMAN on 11/21/221834 Sertraline HCl (Sertraline HCl) 25 Mg Tablet, 25 MG PO HS, (Reported) Entered as Reported by: ANJELICA SOTO on 01/25/21 08 Travoprost (Travoprost) 0.004 % Drops, 1 DROP OU HS, (Reported) Entered as Reported by: JAIME RAHMAN on 11/21/221834 Exam Vital Signs Vital Signs Date Time Temp Pulse Resp B/P (MAP) Pulse Ox O2 Delivery O2 Flow Rate FiO2 01/26/23 11:00 44 166/63 (89) 94 Room Air 01/26/23 08:00 4.00 01/26/23 07:25 36.4 01/26/23 00:40 21 Physical Exam Constitutional examination: Patient is not in any distress Respiratory examination: Bilateral breath sounds heard. Cardiovascular examination: Irregular rhythm with long pauses. Right wrist bruising with the splint. Neurological/psychiatry: During my examination, occasionally patient will look up and talk to somebody. Heart rate at that time was between 53 and 55 beats a minute. Labs Laboratory Tests Test 01/26/23 03:57 Range/Units White Blood Count 13.3 H 4.3-11.0 10^3/uL Red Blood Count 3.94 3.80-5.11 10^6/uL Hemoglobin 12.3 11.5-16.0 g/dL Hematocrit 36 35-52 % Mean Corpuscular Volume 92 80-99 fL Mean Corpuscular Hemoglobin 31 25-34 pg Mean Corpuscular Hemoglobin Concent 34 32-36 g/dL Red Cell Distribution Width 13.6 10.0-14.5 % Platelet Count 227 130-400 10^3/uL Mean Platelet Volume 10.6 9.0-12.2 fL Immature Granulocyte % (Auto) 0 % Neutrophils (%) (Auto) 91 H 42-75 % Lymphocytes (%) (Auto) 4 L 12-44 % Monocytes (%) (Auto) 4 0-12 % Eosinophils (%) (Auto) 0 0-10 % Basophils (%) (Auto) 0 0-10 % Neutrophils # (Auto) 12.1 H 1.8-7.8 10^3/uL Lymphocytes # (Auto) 0.6 L 1.0-4.0 10^3/uL Monocytes # (Auto) 0.5 0.0-1.0 10^3/uL Eosinophils # (Auto) 0.0 0.0-0.3 10^3/uL Basophils # (Auto) 0.0 0.0-0.1 10^3/uL Immature Granulocyte # (Auto) 0.0 0.0-0.1 10^3/uL Neutrophils % (Manual) 91 % Lymphocytes % (Manual) 6 % Monocytes % (Manual) 3 % Poikilocytosis SLIGHT Elliptocytes SLIGHT Sodium Level 134 L 135-145 MMOL/L Potassium Level 5.2 H 3.6-5.0 MMOL/L Chloride Level 107 98-107 MMOL/L Carbon Dioxide Level 16 L 21-32 MMOL/L Anion Gap 11 5-14 MMOL/L Blood Urea Nitrogen 24 H 7-18 MG/DL Creatinine 1.44 H 0.60-1.30 MG/DL Estimat Glomerular Filtration Rate 37 BUN/Creatinine Ratio 17 Glucose Level 192 H 70-105 MG/DL Calcium Level 9.2 8.5-10.1 MG/DL Corrected Calcium 9.3 8.5-10.1 MG/DL Phosphorus Level 3.8 2.3-4.7 MG/DL Magnesium Level 1.7 1.6-2.4 MG/DL Total Bilirubin 1.4 H 0.1-1.0 MG/DL Aspartate Amino Transf (AST/SGOT) 47 H 5-34 U/L Alanine Aminotransferase (ALT/SGPT) 34 0-55 U/L Alkaline Phosphatase 94 40-136 U/L Total Protein 6.5 6.4-8.2 GM/DL Albumin 3.9 3.2-4.5 GM/DL ECG Impression ECG Initial ECG Rhythm: A Fib/Flutter Comment Atrial fibrillation with long pauses A/P-Cardiology Assessment/Admission Diagnosis Permanent atrial fibrillation with long pauses, Oral anticoagulation, Fall yesterday, Altered mental status, Plan Permanent atrial fibrillation with long pauses, numerous heart rates in the 30s. Pauses over 5 seconds long. I discussed at length with the granddaughter, daughter and patient and recommended a temporary pacemaker. Informed consent was taken. Patient will very likely require a permanent pacemaker with Dr. Vásquez. However please note that the patient was on metoprolol 25 mg twice daily and Cardizem 360 mg daily. These are high doses of Cardizem. However I see a previous note by Dr. 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 I agree with that evaluation and even if these episodes are related to Cardizem or worsened by Cardizem; she will still require a single-chamber pacemaker at least. Secondly my concern is history of fall. Although the patient says that she did not hit her head; due to confusion-I think it is reasonable to do a CT head to rule out bleed. Secondly the patient's daughter tells me that she has had falls in the past as well. She does not seem to be a good candidate for chronic oral anticoagulation. I will defer the decision to Dr. Vásquez. The patient may be a candidate for left atrial appendage ligation. Altered mental status, hallucination. I was in the room when the patient briefly looked over her right shoulder and was trying to talk to somebody. The daughter noticed that as well. Patient's heart rate was between 53 and 55 beats a minute, therefore it was unlikely due to bradycardia. I will defer to the primary team. Critically ill patient. Over 30 minutes were spent taking care of this patient Brooklyn KUHN MD Jan 26, 2023 12:51
[2023-01-26] MEDS: MELATONIN 3 MG TABLET PO PRN (21:36)
[2023-01-26] MEDS ORDERED: morphine INJ 10 MG/ML 1ML (SYR OR VIAL) IVP STA (23:22)
[2023-01-26] MEDS ORDERED: morphine INJ 4 MG/ML 1 ML (VIAL/SYRINGE) ONE (23:26)
[2023-01-27 03:25] LABS: BASOPHILS % (AUTO) 0 % (0-10); EOSINOPHILS % (AUTO) 0 % (0-10); HEMATOCRIT 35 % (35-52); HEMOGLOBIN 11.8 g/dL (11.5-16.0); LYMPHOCYTES # (AUTO) 0.5 10^3/uL (1.0-4.0); LYMPHOCYTES % (AUTO) 4 % (12-44); MEAN CORPUSCULAR HEMOGLOBIN 31 pg (25-34); MEAN CORPUSCULAR HGB CONC 34 g/dL (32-36); MEAN CORPUSCULAR VOLUME 91 fL (80-99); MEAN PLATELET VOLUME 10.8 fL (9.0-12.2); MONOCYTES # (AUTO) 1.2 10^3/uL (0.0-1.0); MONOCYTES % (AUTO) 8 % (0-12); NEUTROPHILS # (AUTO) 12.1 10^3/uL (1.8-7.8); NEUTROPHILS % (AUTO) 87 % (42-75); PLATELET COUNT 153 10^3/uL (130-400); WHITE BLOOD COUNT 13.9 10^3/uL (4.3-11.0)
[2023-01-27 04:13] LABS: ALBUMIN 3.6 GM/DL (3.2-4.5)
[2023-01-27 04:14] LABS: POTASSIUM 3.7 MMOL/L (3.6-5.0)
[2023-01-27 04:15] LABS: CALCIUM 8.5 MG/DL (8.5-10.1)
[2023-01-27 04:16] LABS: TOTAL PROTEIN 6.1 GM/DL (6.4-8.2)
[2023-01-27 04:19] LABS: PHOSPHORUS 2.2 MG/DL (2.3-4.7)
[2023-01-27 04:20] LABS: CREATININE SERUM 0.96 MG/DL (0.60-1.30)
[2023-01-27] MEDS: KCL 20 MEQ TAB (K-DUR) PO SCH (04:38)
[2023-01-27] MEDS: POTASSIUM CL 10MEQ/50ML IVPB 50 ML IV SCH ×3 (04:38→05:48)
[2023-01-27] MEDS: MAGNESIUM 1 GM/100 ML IVPB 100 ML IV SCH (04:38)
[2023-01-27] MEDS: NS IV 1000 ML 1,000 ML IV SCH ×2 (09:47→18:00)
--- NOTE | 2023-01-27 10:09 | Tele-ICU Progress Note ---
Subjective Date Seen by a Provider: Jan 27, 2023 Time Seen by a Provider: 10:08 Subjective/Events-last exam (Tele-ICU Physician , Progress Note ) Service provided via interactive audio and video telecommunications E-CARE system to a patient admitted to ICU bed in [facility]. Patient is seen today due to persistent need of ICU care Available chart/ vitals / labs / Images reviewed Video assessment done using teleICU camera, rest of exam as per RN Discussed with RN Events overnight : Afebrile hemodynamically stable Respiratory - 4l I/O =even Drips: Pressors- no Hospital course: (01/25) 82yr F admitted from [facility] for Symptomatic Bradycardia. 01/26 - temporary pacemeker placed A/P A fib - AC with lovonox full dose - s/p temporary pacemaker. 01/26 --> possible permanent pacemaker in near future Acute mental status change - CTH and MRI negative - improving S/p fall. - stable -?candidate for chronic AC - as per PCP / cards Hypoxia - IS , weaning down O2 Lines : periph , (Central Line Necessity Reviewed) Lizbet: lizbeth OG: Nutrition: po Analgesia: Anxiety/ delirium VTE Prophylaxis: boris Stress Ulcer Prophylaxis: na Plans in collaboration with bedside consultants and IM MDs. Discussed with RN to reach out if any questions or concerns Case and care daily discussed on multidisciplinary rounds ( RN, PharmD, Math Teacher , Respiratory Therapy, ironing worker ) A total of 10 minutes of critical care time was devoted to this patient today, required to treat and/or prevent further deterioration of critical care condition ( as above ) . I am remotely monitoring this patient from another state. I am unable to do the bedside exam, and history/physical and pertinent information is taken from other notes in the computer and bedside staff. Sepsis Event Evaluation Height, Weight, BMI Height: 5'5.50" Weight: 163lbs. 0.6oz. 73.814045ug; 30.55 BMI Method:Stated Exam Exam Patient acknowledged, consented, and participated in this virtual visit which was conducted using real time audio/video Vital Signs Date Time Temp Pulse Resp B/P (MAP) Pulse Ox O2 Delivery O2 Flow Rate FiO2 01/27/23 09:00 86 146/82 (111) 96 Nasal Cannula 4.00 01/27/23 08:36 94 Nasal Cannula 4.00 01/27/23 08:29 Nasal Cannula 4.00 01/27/23 08:25 97 Nasal Cannula 7.00 01/27/23 08:00 95 Nasal Cannula 4.00 01/27/23 08:00 66 146/71 (85) 97 Nasal Cannula 7.00 01/27/23 07:22 36.5 Nasal Cannula 7.00 01/27/23 07:00 64 171/82 (119) 93 Nasal Cannula 6.00 01/27/23 07:00 88 01/27/23 06:00 80 162/81 (108) 90 Nasal Cannula 6.00 01/27/23 05:00 84 170/86 (114) 97 Nasal Cannula 6.00 01/27/23 04:00 77 135/65 (88) 94 Nasal Cannula 6.00 01/27/23 04:00 95 Nasal Cannula 6.00 01/27/23 04:00 36.6 Nasal Cannula 01/27/23 03:00 71 153/85 (107) 95 Nasal Cannula 6.00 01/27/23 02:00 62 124/68 (86) 95 Nasal Cannula 6.00 01/27/23 01:00 61 113/62 (79) 93 Nasal Cannula 6.00 01/27/23 00:00 60 174/92 (119) 92 Nasal Cannula 6.00 01/27/23 00:00 36.7 01/27/23 00:00 60 01/26/23 23:59 88 Nasal Cannula 6.00 01/26/23 23:00 60 152/89 (110) 96 Nasal Cannula 6.00 01/26/23 22:00 69 158/69 (98) 99 Nasal Cannula 6.00 01/26/23 21:49 96 Nasal Cannula 6.00 01/26/23 21:00 67 154/79 (104) 97 Nasal Cannula 4.00 01/26/23 20:00 95 Nasal Cannula 4.00 01/26/23 20:00 62 149/74 (99) 90 Nasal Cannula 4.00 01/26/23 20:00 36.9 01/26/23 19:00 59 01/26/23 19:00 59 179/82 (114) 87 Nasal Cannula 4.00 01/26/23 18:00 71 160/75 (97) 95 Nasal Cannula 4.00 01/26/23 17:00 70 164/92 (125) 97 Nasal Cannula 4.00 01/26/23 16:00 69 143/70 (92) 92 Nasal Cannula 4.00 01/26/23 15:52 97 Nasal Cannula 4.00 01/26/23 15:00 59 165/105 (122) 96 Nasal Cannula 4.00 01/26/23 14:00 60 148/66 (96) 92 Nasal Cannula 4.00 01/26/23 13:00 59 150/66 (96) 93 Nasal Cannula 4.00 01/26/23 12:48 60 01/26/23 12:45 60 165/93 (106) 93 01/26/23 12:37 58 127/70 (90) 92 Nasal Cannula 4.00 01/26/23 12:35 96 Nasal Cannula 4.00 01/26/23 11:00 44 166/63 (89) 94 Room Air I & O 01/27/23 07:00 Intake Total 495 ml Output Total 750 ml Balance -255 ml Height & Weight Height: 5'5.50" Weight: 163lbs. 0.6oz. 73.176793yn; 30.55 BMI Method:Stated General Appearance: Chronically ill, Mild Distress (confused) Respiratory: Lungs Clear, No Respiratory Distress Cardiovascular: No Murmur, Bradycardia Capillary Refill: Less Than 3 Seconds Extremity: No Calf Tenderness, No Pedal Edema Neurologic/Psychiatric: Alert, Disoriented Results Lab Laboratory Tests 01/26/23 03:57 01/27/23 03:10 Assessment/Plan Assessment/Plan 1 ANGELITO GLASER MD Jan 27, 2023 10:09
--- NOTE | 2023-01-27 10:51 | Progress Note - Hospitalist ---
Subjective HPI/CC On Admission Date Seen by Provider: Jan 27, 2023 Pt is an 82yoCF with a PMH of a fib/flutter s/p ablation who presented to OSH due to fall, confusion and seizurelike activity. Pt is unable to provide any history due to confusion. Per family and reports from OSH she was having short episode of seizure like episodes. She was found to be bradycardiac into the thirties with a few seconds long pauses. She was transferred here for cardiology evaluation. Overnight this has continued but she has not had any further seizure like episodes. Shortly before I entered the room I was reviewing her telemetry and noticed her drop her rate to 19. Family states she did not have any symptoms with this but they noticed she looked different and saw it on the monitor and wondered if that was why. Recovered quickly to the high 30s and 40s. Subjective/Events-last exam Pt reports doing much better today. Family states mentation is close ot normal. NO complaints. Tolerating procedure well. Objective Exam Vital Signs Vital Signs Date Time Temp Pulse Resp B/P (MAP) Pulse Ox O2 Delivery O2 Flow Rate FiO2 01/27/23 10:00 65 160/74 (91) 95 Nasal Cannula 4.00 01/27/23 07:22 36.5 01/26/23 00:40 21 Capillary Refill : Less Than 3 Seconds General Appearance: No Apparent Distress Respiratory: Lungs Clear Cardiovascular: Irregularly Irregular (but rate improved) Gastrointestinal: Normal Bowel Sounds, Soft Neurologic/Psychiatric: Alert, Oriented x3 (to major details) Results/Procedures Lab Laboratory Tests 01/27/23 03:10 Patient resulted labs reviewed. Assessment/Plan Assessment and Plan Assess & Plan/Chief Complaint Bradycardia a fib with h/o ablation Cardiology consulted, appreciate recs- defer management to them Much improved following temporary pacemaker placement- will likely need permanent pacemaker by Dr Vásquez Continue to hold CCB and BB Monitor on telemetry Hold Xarelto for now Confusion- resolved Likely due to bradycardia Supportive care Negative CT head HLD Depression No acute needs DVT ppx: SCDs Diagnosis/Problems Diagnosis/Problems (1) Delirium (2) Hyperlipidemia Qualifiers: Hyperlipidemia type: unspecified Qualified Codes: E78.5 - Hyperlipidemia, unspecified (3) Depression Qualifiers: Depression Type: unspecified Qualified Codes: F32.A - Depression, unsp ecified (4) Symptomatic bradycardia Status: Acute (5) Beta doris toxicity Status: Acute (6) Hypertension Status: Chronic Qualifiers: Hypertension type: primary hypertension Qualified Codes: I10 - Essential (primary) hypertension (7) Atrial flutter Qualifiers: Atrial flutter type: unspecified Qualified Codes: I48.92 - Unspecified atrial flutter NORAH ANDREWS MD Jan 27, 2023 10:51
[2023-01-27] MEDS: ENOXAPARIN 80 MG/0.8 ML (LOVENOX) SYR SC SCH ×2 (11:50→22:21)
--- NOTE | 2023-01-27 17:44 | Cardiology Progress Note ---
Cardiology SOAP Progress Note Subjective: No significant cardiac complaints. Objective: I&O/Vital Signs 01/27/23 01/27/23 01/27/23 01/27/23 06:00 07:00 07:00 07:22 Temp 36.5 Pulse 80 88 64 B/P (MAP) 162/81 (108) 171/82 (119) Pulse Ox 90 93 O2 Delivery Nasal Cannula Nasal Cannula Nasal Cannula O2 Flow Rate 6.00 6.00 7.00 01/27/23 01/27/23 01/27/23 01/27/23 08:00 08:00 08:25 08:29 Pulse 66 B/P (MAP) 146/71 (85) Pulse Ox 97 95 97 O2 Delivery Nasal Cannula Nasal Cannula Nasal Cannula Nasal Cannula O2 Flow Rate 7.00 4.00 7.00 4.00 01/27/23 01/27/23 01/27/23 01/27/23 08:36 09:00 10:00 11:00 Pulse 86 65 96 B/P (MAP) 146/82 (111) 160/74 (91) 115/68 (92) Pulse Ox 94 96 95 98 O2 Delivery Nasal Cannula Nasal Cannula Nasal Cannula Nasal Cannula O2 Flow Rate 4.00 4.00 4.00 4.00 01/27/23 01/27/23 01/27/23 01/27/23 12:00 12:00 12:00 12:37 Temp 36.7 Pulse 89 98 B/P (MAP) 149/93 (109) Pulse Ox 97 98 O2 Delivery Nasal Cannula Nasal Cannula O2 Flow Rate 4.00 4.00 01/27/23 01/27/23 01/27/23 01/27/23 13:00 14:00 15:00 15:20 Temp 36.8 Pulse 86 87 109 B/P (MAP) 150/86 (107) 148/93 (99) 137/88 (103) Pulse Ox 98 97 98 98 O2 Delivery Nasal Cannula Nasal Cannula Nasal Cannula Nasal Cannula O2 Flow Rate 4.00 4.00 4.00 4.00 01/27/23 01/27/23 16:00 17:00 Pulse 85 104 B/P (MAP) 158/96 (117) 156/83 (96) Pulse Ox 97 98 O2 Delivery Nasal Cannula Nasal Cannula O2 Flow Rate 4.00 4.00 01/27/23 00:00 Intake Total 395 ml Output Total 250 ml Balance 145 ml Weight (Pounds): 163 Weight (Ounces): 0.6 Weight (Calculated Kilograms): 73.750396 Constitutional: No apparent distress Respiratory: chest is bilaterally symmetric, lungs clear to auscultation Cardiovascular: irregularly irregular Gastrointestional: soft Extremities: No pedal edema Neurologic/Psychiatric: alert, normal mood/affect Results/Procedures: Labs Laboratory Tests 01/27/23 03:10: White Blood Count 13.9H, Red Blood Count 3.79L, Hemoglobin 11.8, Hematocrit 35, Mean Corpuscular Volume 91, Mean Corpuscular Hemoglobin 31, Mean Corpuscular Hemoglobin Concent 34, Red Cell Distribution Width 13.6, Platelet Count 153, Mean Platelet Volume 10.8, Immature Granulocyte % (Auto) 0, Neutrophils (%) (Auto) 87H, Lymphocytes (%) (Auto) 4L, Monocytes (%) (Auto) 8, Eosinophils (%) (Auto) 0, Basophils (%) (Auto) 0, Neutrophils # (Auto) 12.1H, Lymphocytes # (Auto) 0.5L, Monocytes # (Auto) 1.2H, Eosinophils # (Auto) 0.0, Basophils # (Auto) 0.0, Immature Granulocyte # (Auto) 0.1, Sodium Level 139, Potassium Level 3.7, Chloride Level 111H, Carbon Dioxide Level 20L, Anion Gap 8, Blood Urea Nitrogen 16, Creatinine 0.96, Estimat Glomerular Filtration Rate 59, BUN/Creatinine Ratio 17, Glucose Level 139H, Calcium Level 8.5, Corrected Calcium 8.8, Phosphorus Level 2.2L, Magnesium Level 2.0, Total Bilirubin 1.0, Aspartate Amino Transf (AST/SGOT) 109H, Alanine Aminotransferase (ALT/SGPT) 97H, Alkaline Phosphatase 83, Total Protein 6.1L, Albumin 3.6 Microbiology 01/25/23 MRSA Screen - Final, Complete MRSA not isolated A/P: Assessment/Dx: Permanent atrial fibrillation with long pauses, Oral anticoagulation, Fall yesterday, Altered mental status, Plan: Permanent atrial fibrillation with significant long pauses and bradycardia. Symptomatic. Temporary pacemaker done yesterday. Heart rate improved today. However still occasional pacing required. Discussed with the daughter. Likely Dr. Vásquez will do a pacemaker on Saturday. Also discussed about left atrial appendage ligation. Due to patient's recurrent fall she may not be good candidate for oral anticoagulation. Thank you for your consultation. Please call me if you have any questions. Manuela Siegel MD, FACP, FACC, FSCAI, FHRS, CCDS Interventional Cardiology Cardiac Electrophysiology Vascular Medicine and Endovascular Interventions Brooklyn SIEGEL MD Jan 27, 2023 17:44
[2023-01-27] MEDS: MELATONIN 3 MG TABLET PO PRN (21:39)
[2023-01-27] MEDS: ACETAMINOPHEN 325 MG TABLET PO PRN (21:39)
[2023-01-28] MEDS: ACETAMINOPHEN 325 MG TABLET PO PRN (04:28)
[2023-01-28] MEDS: NS IV 1000 ML 1,000 ML IV SCH ×3 (04:30→23:22)
[2023-01-28 04:40] LABS: BASOPHILS % (AUTO) 0 % (0-10); EOSINOPHILS # (AUTO) 0.1 10^3/uL (0.0-0.3); EOSINOPHILS % (AUTO) 1 % (0-10); HEMATOCRIT 36 % (35-52); HEMOGLOBIN 12.4 g/dL (11.5-16.0); LYMPHOCYTES # (AUTO) 0.6 10^3/uL (1.0-4.0); LYMPHOCYTES % (AUTO) 6 % (12-44); MEAN CORPUSCULAR HEMOGLOBIN 31 pg (25-34); MEAN CORPUSCULAR HGB CONC 35 g/dL (32-36); MEAN CORPUSCULAR VOLUME 90 fL (80-99); MEAN PLATELET VOLUME 11.2 fL (9.0-12.2); MONOCYTES # (AUTO) 0.9 10^3/uL (0.0-1.0); MONOCYTES % (AUTO) 10 % (0-12); NEUTROPHILS # (AUTO) 8.2 10^3/uL (1.8-7.8); NEUTROPHILS % (AUTO) 83 % (42-75); PLATELET COUNT 150 10^3/uL (130-400); WHITE BLOOD COUNT 9.9 10^3/uL (4.3-11.0)
[2023-01-28 04:52] LABS: ALBUMIN 3.6 GM/DL (3.2-4.5)
[2023-01-28 04:53] LABS: POTASSIUM 3.8 MMOL/L (3.6-5.0)
[2023-01-28 04:54] LABS: CALCIUM 8.8 MG/DL (8.5-10.1)
[2023-01-28 04:55] LABS: TOTAL PROTEIN 6.4 GM/DL (6.4-8.2)
[2023-01-28 04:57] LABS: BILIRUBIN,TOTAL 1.3 MG/DL (0.1-1.0)
[2023-01-28 04:58] LABS: PHOSPHORUS 1.6 MG/DL (2.3-4.7)
[2023-01-28 04:59] LABS: CREATININE SERUM 0.88 MG/DL (0.60-1.30)
[2023-01-28] MEDS: MAGNESIUM 1 GM/100 ML IVPB 100 ML IV SCH (05:26)
[2023-01-28] MEDS: KCL 20 MEQ TAB (K-DUR) PO SCH (05:27)
[2023-01-28] MEDS: POTASSIUM CL 10MEQ/50ML IVPB 50 ML IV SCH (05:27)
[2023-01-28] MEDS ORDERED: KCL 20 MEQ TAB (K-DUR) PO ONE (06:00)
--- NOTE | 2023-01-28 09:53 | Tele-ICU Progress Note ---
Subjective Date Seen by a Provider: Jan 28, 2023 Time Seen by a Provider: 09:53 Subjective/Events-last exam (Tele-ICU Physician , Progress Note ) Service provided via interactive audio and video telecommunications E-CARE system to a patient admitted to ICU bed in [facility]. Patient is seen today due to persistent need of ICU care Available chart/ vitals / labs / Images reviewed Video assessment done using teleICU camera, rest of exam as per RN Discussed with RN Events overnight : Afebrile hemodynamically stable Respiratory - 3L I/O =even Drips: Pressors- no Hospital course: (01/25) 82yr F admitted from [facility] for Symptomatic Bradycardia. 01/26 - temporary pacemeker placed 01/28 - 4l O2 , AAO x4 , permanent pacemaker planned A/P A fib - AC with lovonox full dose - s/p temporary pacemaker. 01/26 --> possible permanent pacemaker today Acute mental status change - CTH and MRI negative - AAOx3 S/p fall. - stable -?candidate for chronic AC - as per PCP / cards Hypoxia - IS , weaning down O2 - 3 L - consider diuresis after helper animal laboratory Lines : periph , (Central Line Necessity Reviewed) Lizbet: lizbeth OG: Nutrition: po Analgesia: Anxiety/ delirium VTE Prophylaxis: boris Stress Ulcer Prophylaxis: na Plans in collaboration with bedside consultants and IM MDs. Discussed with RN to reach out if any questions or concerns Case and care daily discussed on multidisciplinary rounds ( RN, PharmD, Janitorial Maintenance Worker , Respiratory Therapy, blow off worker ) A total of 10 minutes of critical care time was devoted to this patient today, required to treat and/or prevent further deterioration of critical care condition ( as above ) . I am remotely monitoring this patient from another state. I am unable to do the bedside exam, and history/physical and pertinent information is taken from other notes in the computer and bedside staff. Sepsis Event Evaluation Height, Weight, BMI Height: 5'5.50" Weight: 163lbs. 0.6oz. 73.330395tf; 29.86 BMI Method:Stated Exam Exam Patient acknowledged, consented, and participated in this virtual visit which was conducted using real time audio/video Vital Signs Date Time Temp Pulse Resp B/P (MAP) Pulse Ox O2 Delivery O2 Flow Rate FiO2 6/19/23 09:00 124 162/105 (124) 98 Nasal Cannula 3.00 01/28/23 08:18 98 Nasal Cannula 3.00 01/28/23 08:00 36.1 01/28/23 08:00 113 154/112 (126) 98 Nasal Cannula 3.00 01/28/23 07:00 74 157/94 (115) 98 Nasal Cannula 3.00 01/28/23 07:00 90 01/28/23 06:00 35 162/79 (92) 99 Nasal Cannula 3.00 01/28/23 05:00 107 164/92 (116) 98 Nasal Cannula 3.00 01/28/23 04:24 116 169/97 (110) 97 Nasal Cannula 3.00 01/28/23 03:59 98 Nasal Cannula 3.00 01/28/23 03:00 101 153/83 (106) 97 Nasal Cannula 3.00 01/28/23 02:00 98 153/97 (124) 97 Nasal Cannula 3.00 01/28/23 01:00 108 01/28/23 01:00 113 126/83 (109) 98 Nasal Cannula 3.00 01/28/23 00:00 98 137/75 (94) 98 Nasal Cannula 3.00 01/27/23 23:39 97 Nasal Cannula 3.00 01/27/23 23:38 36.5 01/27/23 23:00 84 156/79 (101) 99 Nasal Cannula 3.00 01/27/23 22:22 96 156/79 (104) 98 Nasal Cannula 3.00 01/27/23 21:22 102 146/79 (101) 96 Nasal Cannula 3.00 01/27/23 20:22 116 148/92 (110) 96 Nasal Cannula 3.00 01/27/23 19:49 96 Nasal Cannula 3.00 01/27/23 19:13 36.8 98 Nasal Cannula 3.00 01/27/23 19:02 94 01/27/23 19:00 88 160/99 (109) 98 Nasal Cannula 4.00 01/27/23 18:58 98 Nasal Cannula 4.00 01/27/23 18:00 96 141/91 (97) 97 Nasal Cannula 4.00 01/27/23 17:00 104 156/83 (96) 98 Nasal Cannula 4.00 01/27/23 16:00 85 158/96 (117) 97 Nasal Cannula 4.00 01/27/23 16:00 97 Nasal Cannula 3.00 01/27/23 15:20 36.8 98 Nasal Cannula 4.00 01/27/23 15:00 109 137/88 (103) 98 Nasal Cannula 4.00 01/27/23 14:00 87 148/93 (99) 97 Nasal Cannula 4.00 01/27/23 13:00 86 150/86 (107) 98 Nasal Cannula 4.00 01/27/23 12:37 98 01/27/23 12:00 89 149/93 (109) 98 Nasal Cannula 4.00 01/27/23 12:00 97 Nasal Cannula 4.00 01/27/23 12:00 36.7 01/27/23 11:00 96 115/68 (92) 98 Nasal Cannula 4.00 01/27/23 10:00 65 160/74 (91) 95 Nasal Cannula 4.00 I & O 01/28/23 07:00 Intake Total 1200 ml Output Total 825 ml Balance 375 ml Height & Weight Height: 5'5.50" Weight: 163lbs. 0.6oz. 73.881601yt; 29.86 BMI Method:Stated General Appearance: Chronically ill, Mild Distress (confused) Respiratory: Lungs Clear, No Respiratory Distress Cardiovascular: No Murmur, Bradycardia Capillary Refill: Less Than 3 Seconds Extremity: No Calf Tenderness, No Pedal Edema Neurologic/Psychiatric: Alert, Disoriented Results Lab Laboratory Tests 01/27/23 03:10 01/28/23 03:53 Assessment/Plan Assessment/Plan 1 ANGELITO GLASER MD Jan 28, 2023 09:53
[2023-01-28] MEDS ORDERED: MTP25TSR PO (09:56)
[2023-01-28] MEDS ORDERED: MELA5TAB14 PO (09:56)
[2023-01-28] MEDS ORDERED: INUL2TAB8 PO (09:56)
[2023-01-28] MEDS ORDERED: CALC-308 PO (09:56)
[2023-01-28] MEDS ORDERED: DENO60DI INJ (09:56)
[2023-01-28] MEDS: ENOXAPARIN 80 MG/0.8 ML (LOVENOX) SYR SC SCH ×2 (11:30→23:17)
[2023-01-28] MEDS ORDERED: proPOfol 200 MG/20 ML (DIPRIVAN) VIAL IV ONE (12:58)
[2023-01-28] MEDS ORDERED: fentaNYL INJ 100 MCG/2 ML AMP ONE (12:58)
[2023-01-28] MEDS ORDERED: MIDAZOLAM 5 MG/5 ML (VERSED) VIAL ONE (12:58)
[2023-01-28] MEDS ORDERED: ceFAZolin INJECTION 1,000 MG ONE (12:59)
[2023-01-28] MEDS ORDERED: HEParin (CATH LAB) 1,000 ML IV ONE (13:47)
[2023-01-28] MEDS ORDERED: LIDOCAINE 1% INJ 20 ML VIAL ONE (13:47)
[2023-01-28] MEDS ORDERED: NS IV 1000 ML 2,000 ML ONE (13:47)
--- NOTE | 2023-01-28 15:58 | Progress Note - Hospitalist ---
Subjective HPI/CC On Admission Date Seen by Provider: Jan 28, 2023 Time Seen by Provider: 09:45 Pt is an 82yoCF with a PMH of a fib/flutter s/p ablation who presented to OSH due to fall, confusion and seizurelike activity. Pt is unable to provide any history due to confusion. Per family and reports from OSH she was having short episode of seizure like episodes. She was found to be bradycardiac into the thirties with a few seconds long pauses. She was transferred here for cardiology evaluation. Overnight this has continued but she has not had any further seizure like episodes. Shortly before I entered the room I was reviewing her telemetry and noticed her drop her rate to 19. Family states she did not have any symptoms with this but they noticed she looked different and saw it on the monitor and wondered if that was why. Recovered quickly to the high 30s and 40s. Subjective/Events-last exam She is feeling better. She denies dizziness. She denies confusion. She denies chest pain and palpitations. Objective Exam Vital Signs Vital Signs Date Time Temp Pulse Resp B/P (MAP) Pulse Ox O2 Delivery O2 Flow Rate FiO2 01/28/23 14:00 81 155/85 (108) 100 Nasal Cannula 3.00 01/28/23 11:25 36.7 01/26/23 00:40 21 Capillary Refill : Less Than 3 Seconds General Appearance: No Apparent Distress, WD/WN Respiratory: Lungs Clear, No Respiratory Distress Cardiovascular: No Murmur, Irregularly Irregular Gastrointestinal: Normal Bowel Sounds, Non Tender, Soft Extremity: Normal Inspection, No Pedal Edema Neurologic/Psychiatric: Alert, Normal Mood/Affect Skin: Normal Color, Warm/Dry Results/Procedures Lab Laboratory Tests 01/28/23 03:53 Patient resulted labs reviewed. Assessment/Plan Assessment and Plan Assess & Plan/Chief Complaint Bradycardia Afib with h/o ablation Cardiology following Temporary pacer in place Continue to hold CCB and BB Holding Xarelto NPO for possible pacemaker today Confusion- resolved Likely due to bradycardia Supportive care Negative CT head HLD Depression No acute needs DVT ppx: SCDs Diagnosis/Problems Diagnosis/Problems (1) Symptomatic bradycardia Status: Acute (2) Beta doris toxicity Status: Acute (3) Hypertension Status: Chronic Qualifiers: Hypertension type: primary hypertension Qualified Codes: I10 - Essential (primary) hypertension (4) Depression Qualifiers: Depression Type: unspecified Qualified Codes: F32.A - Depression, unspecified (5) Atrial flutter Qualifiers: Atrial flutter type: unspecified Qualified Codes: I48.92 - Unspecified atrial flutter (6) Hyperlipidemia Qualifiers: Hyperlipidemia type: unspecified Qualified Codes: E78.5 - Hyperlipidemia, unspecified (7) Delirium JUJU TY MD Jan 28, 2023 15:58
--- NOTE | 2023-01-28 18:03 | Cardiac Procedure Note-CS/ASA ---
Pre-Procedure Note Pre-Op Procedure Note Date H&P Reviewed: Jan 28, 2023 Time H&P Reviewed: 15:00 History & Physical: H&P Reviewed, Patient Examed, No changes noted Pre-Operative Diagnosis: permanent afib, pauses Moderate Sedation PreProcedure Time 15:00 ASA Score 3 Airway Lungs Heart ASA score ASA 1: a normal healthy patient ASA 2: a patient with a mild systemic disease (mid diabetes, controlled hypertension, obesity ASA 3: a patient with a severe systemic disease that limits activity (angina, COPD, prior Myocardial infarction) ASA 4: a patient with an incapacitating disease that is a constant threat to life (CHF, renal failure) ASA 5: a moribund patient not expected to survive 24 hrs. (ruptured aneurysm) ASA 6: a declared brain- patient whose organs are being harvested. For emergent operations, add the letter E after the classification Mallampati Classification Grade 1 Sedation Plan Analgesia, Amnesia, Plan communicated to team members, Discussed options with patient/fam, Discussed risks with patient/fam The patient is an appropriate candidate to undergo the planned procedure, sedation, and anesthesia. The patient immediately re-assessed prior to indication. Brooklyn KUHN MD Jan 28, 2023 18:03
--- NOTE | 2023-01-28 18:12 | Permanent Pacemaker Implant ---
Dual Chamber Pacemaker Implant PROCEDURE PHYSICIAN: Manuela Siegel MD DUAL CHAMBER PACEMAKER IMPLANTATION: DATE OF PROCEDURE: 01/28/23 REFERRING PHYSICIAN: Dr. Levin ATTENDING PHYSICIAN: Dr. Levin INDICATION: Permanent atrial fibrillation, severe bradycardia, long pauses. PREOPERATIVE DIAGNOSIS: Permanent atrial fibrillation, severe bradycardia, long pauses POSTOPERATIVE DIAGNOSIS:Permanent atrial fibrillation, severe bradycardia, long pauses, S/p single-chamber permanent pacemaker HISTORY: This is a 82-year-old lady with history of permanent atrial fibrillation, she presented with symptomatic long pauses with permanent atrial fibrillation.Temporary pacemaker was done on 01/26/2023. PROCEDURE PERFORMED: 1. Single-chamber permanent pacemaker implantation. 2. Fluoroscopy. 3. Central venous access. 4. Temporary pacemaker Removal. ANESTHESIA: Local anesthesia, conscious sedation. COMPLICATIONS: None. ESTIMATED BLOOD LOSS:20 mL. SPECIMENS: None. ORAL ANTICOAGULATION: None. FLUOROSCOPY TIME: 2.25 minutes FLUOROSCOPY DOSE: 20 mgy CONTRAST DOSE: 20 ml PROCEDURE DETAILS: The patient is a 82 female and after all of the patients questions were answered, the patient was brought to the EP Lab. The patient's left chest was prepped and draped in sterile fashion. A 2 inch horizontal incision was made 1 cm below the clavicle and d issection carried down to the pectoralis fascia. Venogram was done with 20 cc omnipaque. Using the modified Seldinger technique and under fluoroscopy guidance, the anterior aspect of the left axillary vein was accessed once with a micropuncture and exchanged for a regular J wire . A 7-Egyptian sheath was introduced over The J-wire. The RV lead was then inserted. The RV lead was directed across the tricuspid valve to the apical septal portion of the right ventricle. The position was checked in SAMI and BATES views. The screw was deployed and the lead connected to the mainframe systems programmer. Close sensing and pacing thresholds were obtained. Diaphragmatic pacing was ruled out. The lead was secured with 0-ethibond ties to the underlying muscle and fascia. The lead was connected to the device in a hermetic fashion. The device and lead were placed in the pocket. Aggressive irrigation with saline solution was done. The device was secured to the underlying muscle and fascia with a 0-ethibond tie. interrogation of the device revealed good integrity of all the leads and good connections. The wound was then closed using 2 layers. The first layer was interrupted 2-0 absorbable Vicryl suture. The last layer was a single subcuticular layer with 4- 0 Vicryl suture. Half inch Steri-Strips and a small dressing were then applied to the wound. The temporary pacemaker was taken out and pressure was held at the right femoral vein.The patient tolerated the procedure well and was returned to the recovery room in stable condition with stable vital signs. DEVICE INFORMATION: [id number], [id number] RV LEAD: Impact, 5076-52, serial number [id number] PER-OPERATIVE DEVICE INTERROGATION: RV lead Sensitivity 7.1 mV. Impedance 551 ohms. Threshold 0.875 at 0.4 ms IMMEDIATE POSTOPERATIVE DEVICE INTERROGATION: RV lead, R wave 5.6 mV. Impedance 513 ohms. Pacing threshold 0.5 V at 0.4 ms PLAN: The patient transferred to the ICU. We will continue with two more doses of IV antibiotics. We will check a chest x-ray now and interrogate the device in the morning. The patient will continue on oral antibiotics for 5 days. Patient to follow-up with Dr. Vásquez. Manuela Siegel MD, [facility] Cardiac Electrophysiology Brooklyn SIEGEL MD Jan 28, 2023 18:12
[2023-01-28] MEDS ORDERED: PATIENT MAY USE OWN MEDS, ALL PO SCH (18:15)
[2023-01-28] MEDS ORDERED: NS IV 1000 ML 1,000 ML IV SCH (18:15)
--- NOTE | 2023-01-28 19:06 | Diagnostic Imaging Report ---
INDICATION: Post pacemaker placement. TECHNIQUE: Single view chest 6:41 PM. CORRELATION STUDY: 03/22/2019 FINDINGS: Left-sided unipolar pacemaker is in place. Heart size and mediastinum are enlarged and prominent. There is pulmonary vascular congestion and perihilar edema, appears more prominent from prior. Lung hou are hyperinflated. Mild interstitial edema suggested. Likely trace effusions. More focal atelectasis or less likely infiltrate left lung base. No pneumothorax. IMPRESSION: 1. Left-sided unipolar pacemaker is in place. Development of what appears to be [id number]-[id number] edema. Minimal superimposed atelectasis or less likely infiltrate left lung base. Dictated by: Dictated on workstation # [id number]
[2023-01-28] MEDS: ceFAZolin INJECTION 1,000 MG in NS (IVPB) 50 ML IV SCH (21:25)
[2023-01-29] MEDS: ACETAMINOPHEN 325 MG TABLET PO PRN ×3 (03:09→21:06)
[2023-01-29 04:10] LABS: BASOPHILS % (AUTO) 1 % (0-10); EOSINOPHILS # (AUTO) 0.1 10^3/uL (0.0-0.3); EOSINOPHILS % (AUTO) 1 % (0-10); HEMATOCRIT 34 % (35-52); HEMOGLOBIN 11.2 g/dL (11.5-16.0); LYMPHOCYTES # (AUTO) 0.6 10^3/uL (1.0-4.0); LYMPHOCYTES % (AUTO) 7 % (12-44); MEAN CORPUSCULAR HEMOGLOBIN 31 pg (25-34); MEAN CORPUSCULAR HGB CONC 33 g/dL (32-36); MEAN CORPUSCULAR VOLUME 92 fL (80-99); MEAN PLATELET VOLUME 10.7 fL (9.0-12.2); MONOCYTES # (AUTO) 0.8 10^3/uL (0.0-1.0); MONOCYTES % (AUTO) 10 % (0-12); NEUTROPHILS # (AUTO) 7.1 10^3/uL (1.8-7.8); NEUTROPHILS % (AUTO) 82 % (42-75); PLATELET COUNT 149 10^3/uL (130-400); WHITE BLOOD COUNT 8.6 10^3/uL (4.3-11.0)
[2023-01-29 04:24] LABS: POTASSIUM 3.8 MMOL/L (3.6-5.0)
[2023-01-29 04:25] LABS: CALCIUM 7.9 MG/DL (8.5-10.1)
[2023-01-29 04:27] LABS: TOTAL PROTEIN 5.8 GM/DL (6.4-8.2)
[2023-01-29 04:28] LABS: BILIRUBIN,TOTAL 0.9 MG/DL (0.1-1.0)
[2023-01-29 04:30] LABS: CREATININE SERUM 0.79 MG/DL (0.60-1.30); PHOSPHORUS 1.3 MG/DL (2.3-4.7)
[2023-01-29 04:33] LABS: MAGNESIUM 1.8 MG/DL (1.6-2.4)
[2023-01-29] MEDS: KCL 20 MEQ TAB (K-DUR) PO SCH (04:42)
[2023-01-29] MEDS: POTASSIUM CL 10MEQ/50ML IVPB 50 ML IV SCH (04:42)
[2023-01-29] MEDS: MAGNESIUM 1 GM/100 ML IVPB 100 ML IV SCH ×3 (04:42→07:33)
[2023-01-29] MEDS: ceFAZolin INJECTION 1,000 MG in NS (IVPB) 50 ML IV SCH ×2 (05:16→13:45)
--- NOTE | 2023-01-29 07:59 | Cardiology Progress Note ---
Subjective Date Seen by Provider: Jan 29, 2023 Time Seen by Provider: 07:56 Subjective/Events-last exam Patient was seen at bedside, laying down comfortably, tachycardic at this point. No new complaint Review of Systems General: No Chills, No Night Sweats; Fatigue; No Malaise, No Appetite, No Other HEENT: No Head Aches, No Visual Changes, No Eye Pain, No Ear Pain, No Dysphasia, No Sinus Congestion, No Post Nasal Drip, No Sore Throat, No Other Pulmonary: No Dyspnea, No Cough, No Pleuritic Chest Pain, No Other Cardiovascular: No: Chest Pain, Palpitations, Orthopnea, Paroxysmal Noc. Dyspnea, Edema, Lt Headedness, Other Objective-Cardiology Exam Last Set of Vital Signs Vital Signs 01/26/23 01/29/23 01/29/23 01/29/23 00:40 03:00 06:00 07:05 Temp 37.2 Pulse 108 Resp 18 B/P (MAP) 121/84 (96) Pulse Ox 97 O2 Delivery Room Air O2 Flow Rate 0.00 FiO2 21 I&O Intake and Output 01/29/23 00:00 Intake Total 1250 ml Output Total 1200 ml Balance 50 ml Intake Oral 200 ml IV Total 1050 ml Output Urine Total 1100 ml Post Void Residual 100 ml # Urine Diapers 3 General: Alert, Oriented X3, Cooperative HEENT: Atraumatic, PERRLA Neck: Supple, No JVD, No Thyromegaly Lungs: Clear to Auscultation, Normal Air Movement Heart: Normal S1, Normal S2, No Murmurs, Other Abdomen: Normal Bowel Sounds, Soft, No Tenderness, No Hepatosplenomegaly, No Masses Extremities: No Clubbing, No Cyanosis, No Edema, Normal Pulses, No Tenderness/Swelling Skin: No Rashes, No Breakdown, No Significant Lesion Neuro: Normal Gait, Normal Speech, Strength at 5/5 X4 Ext, Normal Tone, Sensation Intact Psych/Mental Status: Mental Status NL, Mood NL Results Lab Laboratory Tests 01/29/23 03:43 A/P-Cardiology Admission Diagnosis Permanent atrial fibrillation Bradycardia Cardiac pacemaker Assessment/Plan Permanent atrial fibrillation with long pauses Sinus node dysfunction Status post pacemaker implantation Currently tachycardic, I will increase Cardizem and evaluate tolerance and response Chronic oral anticoagulation Status post fall and bruising on her arm. Change in mental status. SHARRI MONTAÑO MD Jan 29, 2023 07:59
[2023-01-29] MEDS ORDERED: KCL 20 MEQ TAB (K-DUR) PO ONE (08:00)
--- NOTE | 2023-01-29 08:25 | Diagnostic Imaging Report ---
INDICATION: Pacemaker placement PA and lateral chest obtained at 4:03 a.m. and compared with yesterday. Heart is borderline enlarged. There is a single lead pacemaker device in place with tip in the RV apex. There is no pneumothorax. There are small bilateral pleural effusions. There is mild left basilar atelectatic change versus infiltrate which is similar to the prior study. IMPRESSION: No pneumothorax. Small bilateral pleural effusions. Pacemaker as above. Mild left basilar atelectasis versus infiltrate. Dictated by: Dictated on workstation # [id number]
[2023-01-29] MEDS ORDERED: dilTIAZem120 MG (CARDIZEM CD) CAP PO SCH (09:00)
--- NOTE | 2023-01-29 09:18 | Physical Therapy Evaluation ---
PT Evaluation-General Medical Diagnosis Admission Date Jan 25, 2023 at 21:51 Medical Diagnosis: syncope/cardiac pauses Onset Date: Jan 25, 2023 Therapy Diagnosis Therapy Diagnosis: debility/weakness Height/Weight Height (Feet): 5 Height (Inches): 5.50 Weight (Pounds): 163 Weight (Ounces): 0.6 Precautions Precautions/Isolations: Standard Precautions Referral Physician: Dariusz Reason for Referral: Evaluation/Treatment Medical History Pertinent Medical History: Atrial Fib, CVA, GERD Current History transfer from OSH secondary to fall, confusion, seizure like activity Reviewed History: Yes Social History Home: Single Level Current Living Status: Alone (with caregivers) Entry Into Home: Stairs With Railing PT Steps Into Home: 5 Prior Prior Level of Function SCALE: Activities may be completed with or without assistive devices. 6-Fythjwpfqn-tgskzsc completes the activity by him/herself with no assistance from a helper. 5-Set-up or Clean-up Assistance-helper sets up or cleans up; patient completes activity. [place] assists only prior to or following the activity. 4-Supervision or Touching Assistance-helper provides verbal cues and/or touching/steadying and/or contact guard assistance as patient completes activity. Assistance may be provided throughout the activity or intermittently. 3-Partial/Moderate Assistance-helper does LESS THAN HALF the effort. [place] l ifts, holds or supports trunk or limbs, but provides less than half the effort. 2-Substantial/Maximal Assistance-helper does MORE THAN HALF the effort. [place] lifts or holds trunk or limbs and provides more than half the effort. 6-Kudtwcvlz-dpbptj does ALL the effort. Patient does none of the effort to complete the activity. Or, the assistance of 2 or more helpers is required for t he patient to complete the activity. If activity was not attempted, code reason: 7-Patient Refused. 9-Not Applicable-not attempted and the patient did not perform the activity before the current illness, exacerbation or injury. 10-Not Attempted due to Environmental Limitations-(lack of equipment, weather restraints, etc.). 88-Not Attempted due to Medical Conditions or Safety Concerns. Bed Mobility: 4 Transfers (B,C,W/C): 4 Gait: 4 Stairs: 4 Indoor Mobility (Ambulation): Needed Some Help Stairs: Needed Some Help Prior Devices Use: Walker PT Evaluation-Current Subjective Patient agrees to PT. Family present. Objective Patient Orientation: Normal For Age ROM/Strength ROM Lower Extremities bilateral LE WFL Strength Lower Extremities 3-/5 grossly bilateral LE all planes Integumentary/Posture Integumentary refer to nursing notes Bladder Incontinence: Yes Posture WFL Neuromuscular (Tone, Coordination, Reflexes) diminished coordination due to weakness Sensory Vision: Functional Hearing: Functional Transfers Lying to Sitting/Side of Bed(Q: 3 Sit to Stand (QC): 3 Chair/Izu-sx-Qhzxi Xfer(QC): 3 mod assist with all mobility Gait Mode of Locomotion: Walk Distance: 3 steps Gait Assistive Device: Walker Yonatan Comments/Gait Description unsteady/slightly retropulsive Balance Sitting Static: Fair Sitting Dynamic: Fair Standing Static: Poor Standing Dynamic: Poor Assessment/Needs Patient will benefit from skilled PT to address functional strength and mobility to improve current LOF. Per patient and family, patient will have 24/7 care upon returning to home. PT educated patient and family on talking to physician and SW if plans need to change. Rehab Potential: Fair PT Alf Goals Net Finisher Goals PT Alf Goals Time Frame: Feb 09, 2023 Roll Left & Right (QC): 4 Sit to Lying (QC): 4 Lying-Sitting on Side/Bed(QC): 4 Sit to Stand (QC): 4 Chair/Eqr-br-Xffpe Xfer(QC): 4 Toilet Transfer (QC): 4 Walk 10 feet (QC): 3 PT Plan Problem List Problem List: Activity Tolerance, Functional Strength, Safety, Balance, Gait, Transfer, Bed Mobility Treatment/Plan Treatment Plan: Continue Plan of Care Treatment Plan: Bed Mobility, Education, Functional Activity Sammie, Functional Strength, Gait, Safety, Therapeutic Exercise, Transfers Treatment Duration: Feb 09, 2023 Frequency: 6 times per week Estimated Hrs Per Day: .25 hour per day Time Time In: 840 Time Out: 900 DATE: Jan 29, 2023 Total Billed Treatment Time: 20 [facility] A[facility]ON[facility] Jan 29, 2023 09:18
[2023-01-29 10:17] VITALS: BP 140/98
[2023-01-29] MEDS: NS IV 1000 ML 1,000 ML IV SCH ×2 (10:17→20:16)
[2023-01-29] MEDS ORDERED: RT-ALBUTEROL SULF 2.5 MG/3 ML PRE-MIX VIAL INH PRN (10:30)
[2023-01-29] MEDS: RIVAROXABAN 15 MG TABLET (XARELTO) PO SCH (12:07)
--- NOTE | 2023-01-29 17:46 | Progress Note - Hospitalist ---
Subjective HPI/CC On Admission Date Seen by Provider: Jan 29, 2023 Time Seen by Provider: 08:40 Pt is an 82yoCF with a PMH of a fib/flutter s/p ablation who presented to OSH due to fall, confusion and seizurelike activity. Pt is unable to provide any history due to confusion. Per family and reports from OSH she was having short episode of seizure like episodes. She was found to be bradycardiac into the thirties with a few seconds long pauses. She was transferred here for cardiology evaluation. Overnight this has continued but she has not had any further seizure like episodes. Shortly before I entered the room I was reviewing her telemetry and noticed her drop her rate to 19. Family states she did not have any symptoms with this but they noticed she looked different and saw it on the monitor and wondered if that was why. Recovered quickly to the high 30s and 40s. Subjective/Events-last exam She is feeling better. She has been out of bed. She denies pain. She denies palpitations. Objective Exam Vital Signs Vital Signs Date Time Temp Pulse Resp B/P (MAP) Pulse Ox O2 Delivery O2 Flow Rate FiO2 01/29/23 15:52 36.8 113 16 122/84 (97) 98 Room Air 01/29/23 10:17 21 01/29/23 07:05 0.00 Capillary Refill : Less Than 3 Seconds General Appearance: No Apparent Distress, WD/WN Respiratory: Lungs Clear, No Respiratory Distress Cardiovascular: No Murmur, Tachycardia Gastrointestinal: Normal Bowel Sounds, Soft Extremity: Normal Inspection, No Pedal Edema Neurologic/Psychiatric: Alert, Normal Mood/Affect Results/Procedures Lab Laboratory Tests 01/29/23 03:43 Patient resulted labs reviewed. Assessment/Plan Assessment and Plan Assess & Plan/Chief Complaint Bradycardia Afib with h/o ablation Cardiology following s/p pacemaker 01/28 Restarted on oral Cardizem Resume Xarelto HLD Depression No acute needs Debility PT/OT Confusion, resolved Diagnosis/Problems Diagnosis/Problems (1) Symptomatic bradycardia Status: Acute (2) Hypertension Status: Chronic Qualifiers: Hypertension type: primary hypertension Qualified Codes: I10 - Essential (primary) hypertension (3) Depression Qualifiers: Depression Type: unspecified Qualified Codes: F32.A - Depression, unspecified (4) Atrial flutter Qualifiers: Atrial flutter type: unspecified Qualified Codes: I48.92 - Unspecified atrial flutter (5) Hyperlipidemia Qualifiers: Hyperlipidemia type: unspecified Qualified Codes: E78.5 - Hyperlipidemia, unspecified (6) Delirium JUJU TY MD Jan 29, 2023 17:46
[2023-01-29] MEDS: MELATONIN 3 MG TABLET PO PRN (21:06)
[2023-01-30] MEDS: ACETAMINOPHEN 325 MG TABLET PO PRN (03:39)
[2023-01-30 05:06] LABS: BASOPHILS # (AUTO) 0.1 10^3/uL (0.0-0.1); BASOPHILS % (AUTO) 1 % (0-10); EOSINOPHILS # (AUTO) 0.2 10^3/uL (0.0-0.3); EOSINOPHILS % (AUTO) 4 % (0-10); HEMATOCRIT 35 % (35-52); LYMPHOCYTES # (AUTO) 0.7 10^3/uL (1.0-4.0); LYMPHOCYTES % (AUTO) 12 % (12-44); MEAN CORPUSCULAR HEMOGLOBIN 31 pg (25-34); MEAN CORPUSCULAR HGB CONC 34 g/dL (32-36); MEAN CORPUSCULAR VOLUME 90 fL (80-99); MEAN PLATELET VOLUME 11.4 fL (9.0-12.2); MONOCYTES # (AUTO) 0.7 10^3/uL (0.0-1.0); MONOCYTES % (AUTO) 11 % (0-12); NEUTROPHILS # (AUTO) 4.5 10^3/uL (1.8-7.8); NEUTROPHILS % (AUTO) 73 % (42-75); PLATELET COUNT 170 10^3/uL (130-400); WHITE BLOOD COUNT 6.2 10^3/uL (4.3-11.0)
[2023-01-30 05:17] LABS: ALBUMIN 3.4 GM/DL (3.2-4.5); POTASSIUM 4.2 MMOL/L (3.6-5.0)
[2023-01-30 05:18] LABS: CALCIUM 8.5 MG/DL (8.5-10.1)
[2023-01-30 05:20] LABS: TOTAL PROTEIN 6.5 GM/DL (6.4-8.2)
[2023-01-30 05:21] LABS: BILIRUBIN,TOTAL 0.9 MG/DL (0.1-1.0)
[2023-01-30 05:23] LABS: CREATININE SERUM 0.8 MG/DL (0.60-1.30); PHOSPHORUS 1.5 MG/DL (2.3-4.7)
[2023-01-30 05:26] LABS: MAGNESIUM 2.2 MG/DL (1.6-2.4)
[2023-01-30] MEDS: KCL 20 MEQ TAB (K-DUR) PO SCH (06:30)
[2023-01-30] MEDS: MAGNESIUM 1 GM/100 ML IVPB 100 ML IV SCH (06:30)
[2023-01-30] MEDS: POTASSIUM CL 10MEQ/50ML IVPB 50 ML IV SCH (06:30)
[2023-01-30] MEDS: NS IV 1000 ML 1,000 ML IV SCH ×2 (06:31→16:28)
--- NOTE | 2023-01-30 09:54 | Diagnostic Imaging Report ---
Indication: Fall with right wrist pain AP, oblique, lateral views the right wrist are obtained There is soft tissue swelling. There is no acute fracture identified. There are degenerative changes radiocarpal joint and 1st carpal metacarpal joint. IMPRESSION: Degenerative changes. No overt fracture or acute bone abnormality. Dictated by: Dictated on workstation # [id number]
--- NOTE | 2023-01-30 10:58 | Cardiology Progress Note ---
Subjective Date Seen by Provider: Jan 30, 2023 Time Seen by Provider: 10:00 Subjective/Events-last exam Patient sitting up in chair, denies any chest pain. Reports some generalized weakness and fatigue Objective-Cardiology Exam Last Set of Vital Signs Vital Signs 01/29/23 01/29/23 01/30/23 01/30/23 07:05 10:17 07:40 08:15 Temp 36.5 Pulse 95 Resp 14 B/P (MAP) 126/103 (111) Pulse Ox 95 O2 Delivery Room Air O2 Flow Rate 0.00 FiO2 21 I&O Intake and Output 01/30/23 00:00 Intake Total 935 ml Output Total 1575 ml Balance -640 ml Intake Oral 885 ml IV Total 50 ml Output Urine Total 1575 ml # Urine Diapers 1 General: Alert, Oriented X3, Cooperative HEENT: Atraumatic, PERRLA Neck: Supple, No JVD, No Thyromegaly Lungs: Clear to Auscultation, Normal Air Movement Heart: Normal S1, Normal S2, No Murmurs, Other Abdomen: Normal Bowel Sounds, Soft, No Tenderness, No Hepatosplenomegaly, No Masses Extremities: No Clubbing, No Cyanosis, No Edema, Normal Pulses, No Tenderness/Swelling Skin: No Rashes, No Breakdown, No Significant Lesion Neuro: Normal Gait, Normal Speech, Strength at 5/5 X4 Ext, Normal Tone, Sensation Intact Psych/Mental Status: Mental Status NL, Mood NL Results Lab Laboratory Tests 01/30/23 03:03 A/P-Cardiology Admission Diagnosis Permanent atrial fibrillation Bradycardia Cardiac pacemaker Assessment/Plan Permanent atrial fibrillation with long pauses Sinus node dysfunction Status post pacemaker implantation Was tachycardic this morning, HR improving after increasing Cardizem CD to 180mg Continue to monitor heart rate tolerance, will consider increasing the dose to 240 mg daily if needed Generalized weakness, arm pain, discussed the possibility of discharge, patient is requesting to be evaluated for physical therapy. Chronic oral anticoagulation Status post fall and bruising on her arm. Change in mental status. Supervisory-Addendum Brief Supervisory Addendum Participated in pt care: history, MDM, physical Personally performed: exam, history, MDM Care discussed with: NICKIE Results interpretation: Verified all documentation Notes: Patient was seen and evaluated with Flavia, examination performed, management plan was discussed, agree with the current scribed note, I made few changes to the note using Italic font Patient was seen at bedside, she was sitting comfortably Still borderline tachycardic She was started today on the Cardizem CD1 80 mg daily We will consider increasing the dose to 40 if she continues to be tachycardic Consult physical therapy and rehab and evaluate tolerance and response Monitor blood pressure FLAVIA GONZALES Jan 30, 2023 10:58 SHARRI MONTAÑO MD Jan 30, 2023 11:09
[2023-01-30] MEDS: RIVAROXABAN 15 MG TABLET (XARELTO) PO SCH (11:43)
--- NOTE | 2023-01-30 13:13 | Occupational Therapy Eval ---
OT Evaluation-General/PLF Medical Diagnosis Admission Date Jan 25, 2023 at 21:51 Medical Diagnosis: syncope/cardiac pauses/pacemaker placement 01-28-23 Onset Date: Jan 25, 2023 Therapy Diagnosis Therapy Diagnosis: Weakness, Decreased ADL skills Height/Weight Height (Feet): 5 Height (Inches): 5.50 Weight (Pounds): 163 Weight (Ounces): 0.6 Precautions Precautions/Isolations: Fall Prevention, Standard Precautions Weight Bear Status Non weight bearing on left UE. Referral Physician: Dariusz Referral Reason: Activity Tolerance, Self Care, Evaluation/Treatment, [facility] Medical History Pertinent Medical History: Atrial Fib, CVA, GERD Additional Medical History Pacemaker placement on 01-28-23 Current History Pt. came to hospital with seizure like activity. She fell at home injuring her right hand. She was found to have long cardiac pauses. Reviewed History: Yes Social History Home: Single Level Current Living Status: Alone (with caregivers) Entry Into Home: Stairs With Railing Steps Into Home: 5 Daughter present in room. Pt. lives alone but has caregiving assistance 6 days per week. ADL-Prior Level of Function SCALE: Activities may be completed with or without assistive devices. 3-Nnrsplvjzr-udquiqj completes the activity by him/herself with no assistance from a helper. 5-Set-up or Clean-up Assistance-helper sets up or cleans up; patient completes activity. [place] assists only prior to or following the activity. 4-Supervision or Touching Assistance-helper provides verbal cues and/or touching/steadying and/or contact guard assistance as patient completes activity. Assistance may be provided throughout the activity or intermittently. 3-Partial/Moderate Assistance-helper does LESS THAN HALF the effort. [place] lifts, holds or supports trunk or limbs, but provides less than half the effort. 2-Substantial/Maximal Assistance-helper does MORE THAN HALF the effort. [place] lifts or holds trunk or limbs and provides more than half the effort. 2-Mqvwitppy-cvkdgz does ALL the effort. Patient does none of the effort to complete the activity. Or, the assistance of 2 or more helpers is required for the patient to complete the activity. If activity was not attempted, code reason: 7-Patient Refused. 9-Not Applicable-not attempted and the patient did not perform the activity before the current illness, exacerbation or injury. 10-Not Attempted due to Environmental Limitations-(lack of equipment, weather restraints, etc.). 88-Not Attempted due to Medical Conditions or Safety Concerns. ADL PLOF Comments Pt. and daughter report that pt. has caregiving assistance 6 days per week. She does not have on Sundays. Pt. reports that her caregivers assist with all tasks, including bathing/dressing/laundry, and cleaning. Pt. states that she can do some of her own bathing and dressing, but that they assist as needed. Pt. wears depends that they don for her but she can take off. Pt. states that on Sundays she does dress herself. Pt. typically uses a front wheeled walker at home. Self Care: Needed Some Help Functional Cognition: Unknown DME/Equipment Comments Pt. has a walk in bathtub that she uses as shower. OT Current Status Subjective Pt. does not report pain but states that she could be better. States that she did not sleep well last night. Mental Status/Objective Patient Orientation: Person, Place Attachments: [place] Catheter, IV, Oxygen, Telemetry Current Hand Dominance: Right Pt. fell and hit her right hand prior to this hospitalization. Hand is swollen and has hematoma on dorsal side. She also has a skin tear that is bandaged. Daughter reports that pt. has had several x-rays, and no fx present. Pt's left wrist is in deformed posture with deviation from old fx that did not heel well when casted. Pt. and daughter educated on her right sided precautions with UE. Pt. not allowed to raise left shoulder past 90*, nor is she allowed to push/pull/bear down with left UE until she is released by physician. Pt. is currently wearing a sling. ADL-Treatment Eating (QC): 5 (Set up to eat meal tray.) Upper Body Dressing (QC): 2 On/Off Footwear (QC): 1 (Pt. attempts to bring feet up to her lap, but is unable to do so. Unable to bend over.) Other Treatments Pt. up in chair. She declines getting back to bed at this time. Per PT note she requires mod assistance for sit-stand. Pt. attempts to doff/don slipper socks but is unable to. She has been being fed/assisted with feeding by family. OT educates her that it is okay to bed at elbow to bring food to mouth. OT also went to get her built up foam handles, but upon returning pt. was able to feed self without them using spoon. OT presented pt. with therapy hand sponge to work on motion for decreased edema, as well as increased overall strength. Pt. educated on OT goals, and would benefit from skilled therapy to work on increased independence to baseline level. Daughter in room and all needs met. Education OT Patient Education: Correct positioning, Exercise program, Modified ADL techniques, Progress toward Goal/Update tx plan, Purpose of tx/functional activities, Rehab process, Transfer techniques, Use of adapted equipment Teaching Recipient: Patient, Family Teaching Methods: Demonstration, Discussion Response to Teaching: Verbalize Understanding, Return Demonstration, Reinforcement Needed OT Short Term Goals Short Term Goals Time Frame: Feb 06, 2023 Eatin Oral hygiene: 4 (Supervision) Toileting hygiene: 3 (With AE as needed.) Upper body dressin Lower body dressin (Mod assist with AE as needed.) Putting on/taking off footwear: 3 (Mod assist with AE as needed.) OT Senior Care Goals Senior Care Goals Time Frame: Feb 20, 2023 Eating (QC): 6 Oral Hygiene (QC): 5 Toileting Hygiene (QC): 3 (Min assist with AE as needed to baseline.) Shower/Bathe Self (QC): 3 Upper Body Dressing (QC): 5 Lower Body Dressing (QC): 3 (Min assist with AE as needed to baseline.) On/Off Footwear (QC): 3 Additional Goals: 1-Demonstrate ADL Tasks, 2-Verbalize Understanding, 3- ImproveStrength/Sammie 1=Demonstrate adherence to instructed precautions during ADL tasks. 2=Patient will verbalize/demonstrate understanding of assistive devices/modifications for ADL. 3=Patient will improve strength/tolerance for activity to enable patient to perform ADL's. OT Education/Plan Problem List/Assessment Assessment: Decreased Activ Tolerance, Decreased UE Strength, Dependent Transfers, Impaired Bed Mobility, Impaired Coordination, Impaired Funct Balance, Impaired I ADL's, Impaired Self-Care Skills, Restricted Funct UE ROM Discharge Recommendations Plan/Recommendations: Continue POC Therapy Discharge Recommendati: Post Acute OT Equpiment Recommendations-D/C: Hip Kit Patient/Family Goals To return home to baseline level when appropriate. Pt. needs to be able to stand from chair and ambulate with maria dolores walker or quad cane. Treatment Plan/Plan of Care Treatment,Training & Education: Yes Patient would benefit from OT for education, treatment and training to promote independence in ADL's, mobility, safety and/or upper extremity function for ADL's. Plan of Care: ADL Retraining, Caregiver Training, Functional Mobility, UE Funct Exercise/Act Treatment Duration: Feb 20, 2023 Frequency: 3 times per week (3-5x/week) Estimated Hrs Per Day: .25 hour per day Agreement: Yes Rehab Potential: Fair Time Start Time: 12:45 Stop Time: 13:05 DATE: Jan 30, 2023 Total Time Billed (hr/min): 20 Billed Treatment Time 1, JOZEF MENENDEZ OT Jan 30, 2023 13:13
--- NOTE | 2023-01-30 14:45 | Physical Therapy Daily Note ---
PT Daily Note-Current Subjective Pt reports feeling a bit stronger today. Pain Section J - Health Conditions 1. Rarely or not at all 2. Occasionally 3. Frequently 4. Almost constantly 8. Unable to answer Pain Effect on Sleep: 2 Pain Interference with Therapy: 2 Pain Interference w/Day-to-Day: 2 Transfers SCALE: Activities may be completed with or without assistive devices. 2-Aklgopufgb-kljrvjp completes the activity by him/herself with no assistance from a helper. 5-Set-up or Clean-up Assistance-helper sets up or cleans up; patient completes activity. [place] assists only prior to or following the activity. 4-Supervision or Touching Assistance-helper provides verbal cues and/or touching/steadying and/or contact guard assistance as patient completes activity. Assistance may be provided throughout the activity or intermittently. 3-Partial/Moderate Assistance-helper does LESS THAN HALF the effort. [place] lifts, holds or supports trunk or limbs, but provides less than half the effort. 2-Substantial/Maximal Assistance-helper does MORE THAN HALF the effort. [place] lifts or holds trunk or limbs and provides more than half the effort. 1-[place]-iuglis does ALL the effort. Patient does none of the effort to complete the activity. Or, the assistance of 2 or more helpers is required for the patient to complete the activity. If activity was not attempted, code reason: 7-Patient Refused. 9-Not Applicable-not attempted and the patient did not perform the activity before the current illness, exacerbation or injury. 10-Not Attempted due to Environmental Limitations-(lack of equipment, weather restraints, etc.). 88-Not Attempted due to Medical Conditions or Safety Concerns. Sit to Stand (QC): 4 Education on sit to stand from bedside chair. Performed 5 trials with Min to CGA and verbal cues. Gait Training Gait Assistive Device: Walker Yonatan Performed 3 steps forward 3 steps backward x 4 trials. Limited gait due to lines and tubes. Exercises Seated Therapy Exercises: Ankle pumps, Long arc quads, Hip abd/add Seated Reps: 10 Standing: Hip Abduction, Marching, Mini squats, Retro gait, Sit to Stand, Unilateral stance, Weight shifts Standing Reps: 10 Assessment Current Status: Good Progress Increased standing activity this session. Pt had 2 posterior loss of balance with Min A required to correct. Pt has potential to progress ambulation distance and stability. PT Senior Living Goals Program Aide Group Work Goals PT Program Aide Group Work Goals Time Frame: Feb 09, 2023 Roll Left & Right (QC): 4 Sit to Lying (QC): 4 Lying-Sitting on Side/Bed(QC): 4 Sit to Stand (QC): 4 Chair/Shk-se-Uxkrj Xfer(QC): 4 Toilet Transfer (QC): 4 Walk 10 feet (QC): 3 PT Plan Treatment/Plan Treatment Plan: Continue Plan of Care Treatment Plan: Bed Mobility, Education, Functional Activity Sammie, Functional Strength, Gait, Safety, Therapeutic Exercise, Transfers Treatment Duration: Feb 09, 2023 Frequency: 6 times per week Estimated Hrs Per Day: .25 hour per day Time Time In: 1410 Time Out: 1430 DATE: Jan 30, 2023 Total Billed Treatment Time: 20 Total Billed Treatment visit, ex 20 min JONY AGUAYO PT Jan 30, 2023 14:44
--- NOTE | 2023-01-30 16:49 | Progress Note - Hospitalist ---
Subjective HPI/CC On Admission Date Seen by Provider: Jan 30, 2023 Time Seen by Provider: 09:40 Pt is an 82yoCF with a PMH of a fib/flutter s/p ablation who presented to OSH due to fall, confusion and seizurelike activity. Pt is unable to provide any history due to confusion. Per family and reports from OSH she was having short episode of seizure like episodes. She was found to be bradycardiac into the thirties with a few seconds long pauses. She was transferred here for cardiology evaluation. Overnight this has continued but she has not had any further seizure like episodes. Shortly before I entered the room I was reviewing her telemetry and noticed her drop her rate to 19. Family states she did not have any symptoms with this but they noticed she looked different and saw it on the monitor and wondered if that was why. Recovered quickly to the high 30s and 40s. Subjective/Events-last exam She is still having right wrist pain. She has not been as steady on her feet as usual. She wants to be able to get back home. Objective Exam Vital Signs Vital Signs Date Time Temp Pulse Resp B/P (MAP) Pulse Ox O2 Delivery O2 Flow Rate FiO2 01/30/23 15:53 36.8 84 12 150/92 (111) 94 Room Air 01/29/23 10:17 21 01/29/23 07:05 0.00 Capillary Refill : Less Than 3 Seconds General Appearance: No Apparent Distress, WD/WN Respiratory: Lungs Clear, No Respiratory Distress Cardiovascular: Irregularly Irregular, Tachycardia Gastrointestinal: Normal Bowel Sounds, Soft Extremity: Normal Inspection, Pedal Edema, Swelling (right hand and wrist with ecchymosis) Neurologic/Psychiatric: Alert, No Motor/Sensory Deficits Skin: Warm/Dry, Ecchymosis Results/Procedures Lab Laboratory Tests 01/30/23 03:03 Patient resulted labs reviewed. Assessment/Plan Assessment and Plan Assess & Plan/Chief Complaint Bradycardia Afib with h/o ablation Cardiology following s/p pacemaker 01/28 Increased Cardizem Continue Xarelto HLD Depression No acute needs Debility Fall Wrist pain XR wrist without acute fracture, likely sprain/strain PT/OT IRU evaluation With wrist injury, other arm in sling, and debility with recent fall and pacemaker placement would benefit from inpatient rehab and physician monitoring Confusion, resolved Diagnosis/Problems Diagnosis/Problems (1) Symptomatic bradycardia Status: Acute (2) Hypertension Status: Chronic Qualifiers: Hypertension type: primary hypertension Qualified Codes: I10 - Essential (primary) hypertension (3) Depression Qualifiers: Depression Type: unspecified Qualified Codes: F32.A - Depression, unspecified (4) Atrial flutter Qualifiers: Atrial flutter type: unspecified Qualified Codes: I48.92 - Unspecified atrial flutter (5) Hyperlipidemia Qualifiers: Hyperlipidemia type: unspecified Qualified Codes: E78.5 - Hyperlipidemia, unspecified (6) Delirium JUJU TY MD Jan 30, 2023 16:49
[2023-01-30] MEDS: MELATONIN 3 MG TABLET PO PRN (22:21)
[2023-01-31] MEDS: NS IV 1000 ML 1,000 ML IV SCH ×3 (02:34→23:24)
[2023-01-31 04:40] LABS: BASOPHILS % (AUTO) 1 % (0-10); EOSINOPHILS # (AUTO) 0.2 10^3/uL (0.0-0.3); EOSINOPHILS % (AUTO) 3 % (0-10); HEMATOCRIT 37 % (35-52); HEMOGLOBIN 12.5 g/dL (11.5-16.0); LYMPHOCYTES # (AUTO) 0.6 10^3/uL (1.0-4.0); LYMPHOCYTES % (AUTO) 8 % (12-44); MEAN CORPUSCULAR HEMOGLOBIN 31 pg (25-34); MEAN CORPUSCULAR HGB CONC 34 g/dL (32-36); MEAN CORPUSCULAR VOLUME 91 fL (80-99); MEAN PLATELET VOLUME 10.8 fL (9.0-12.2); MONOCYTES # (AUTO) 0.7 10^3/uL (0.0-1.0); MONOCYTES % (AUTO) 10 % (0-12); NEUTROPHILS # (AUTO) 5.6 10^3/uL (1.8-7.8); NEUTROPHILS % (AUTO) 78 % (42-75); PLATELET COUNT 177 10^3/uL (130-400); WHITE BLOOD COUNT 7.2 10^3/uL (4.3-11.0)
[2023-01-31 04:45] LABS: ALBUMIN 3.7 GM/DL (3.2-4.5); POTASSIUM 4.1 MMOL/L (3.6-5.0)
[2023-01-31 04:46] LABS: CALCIUM 8.8 MG/DL (8.5-10.1)
[2023-01-31 04:47] LABS: TOTAL PROTEIN 6.8 GM/DL (6.4-8.2)
[2023-01-31 04:49] LABS: BILIRUBIN,TOTAL 1.1 MG/DL (0.1-1.0)
[2023-01-31 04:50] LABS: PHOSPHORUS 1.3 MG/DL (2.3-4.7)
[2023-01-31 04:51] LABS: CREATININE SERUM 0.78 MG/DL (0.60-1.30)
[2023-01-31 04:54] LABS: MAGNESIUM 1.9 MG/DL (1.6-2.4)
[2023-01-31 05:00] LABS: BAND NEUTROPHILS 0 %; BASOPHILS % (MANUAL) 0 %; EOSINOPHILS % (MANUAL) 2 %; LYMPHOCYTES % (MANUAL) 8 %; MONOCYTES % (MANUAL) 10 %; NEUTROPHILS % (MANUAL) 80 %; POIKILOCYTOSIS SLIGHT
[2023-01-31] MEDS: POTASSIUM CL 10MEQ/50ML IVPB 50 ML IV SCH (05:17)
[2023-01-31] MEDS: KCL 20 MEQ TAB (K-DUR) PO SCH (05:18)
[2023-01-31] MEDS: MAGNESIUM 1 GM/100 ML IVPB 100 ML IV SCH ×3 (05:50→06:50)
--- NOTE | 2023-01-31 07:55 | Physical Therapy Daily Note ---
PT Daily Note-Current Subjective Patient agrees to PT. Patient states she feels "woozy". RN present. Pain Section J - Health Conditions 1. Rarely or not at all 2. Occasionally 3. Frequently 4. Almost constantly 8. Unable to answer Pain Effect on Sleep: 2 Pain Interference with Therapy: 2 Pain Interference w/Day-to-Day: 2 Mental Status Patient Orientation: Person Attachments: IV Transfers SCALE: Activities may be completed with or without assistive devices. 6-Phvmfopnqm-fzzqmey completes the activity by him/herself with no assistance from a helper. 5-Set-up or Clean-up Assistance-helper sets up or cleans up; patient completes activity. Rogers assists only prior to or following the activity. 4-Supervision or Touching Assistance-helper provides verbal cues and/or touching/steadying and/or contact guard assistance as patient completes activity. Assistance may be provided throughout the activity or intermittently. 3-Partial/Moderate Assistance-helper does LESS THAN HALF the effort. Rogers lifts, holds or supports trunk or limbs, but provides less than half the effort. 2-Substantial/Maximal Assistance-helper does MORE THAN HALF the effort. Rogers lifts or holds trunk or limbs and provides more than half the effort. 3-Pfdvcrbxo-ekwvzd does ALL the effort. Patient does none of the effort to complete the activity. Or, the assistance of 2 or more helpers is required for the patient to complete the activity. If activity was not attempted, code reason: 7-Patient Refused. 9-Not Applicable-not attempted and the patient did not perform the activity before the current illness, exacerbation or injury. 10-Not Attempted due to Environmental Limitations-(lack of equipment, weather restraints, etc.). 88-Not Attempted due to Medical Conditions or Safety Concerns. Lying to Sitting/Side of Bed(Q: 3 (mod assist to EOB) Sit to Stand (QC): 3 (min assist to CGA for safety) Chair/Kgc-sd-Potyt Xfer(QC): 3 (min assist to CGA for safety) Gait Training Distance: 5' x 3 Gait Assistive Device: Walker Yonatan slightly unsteady with PT correct (min assist to CGA for safety) Exercises Supine Ex: Ankle pumps, Heel Slides Supine Reps: 10 Seated Therapy Exercises: Long arc quads Seated Reps: 15 Assessment Patient up in recliner with chair alarm activated. Patient tolerated treatment and continued to report she doesn't feel right. RN present during session. PT to increase activity as tolerated by patient. PT Long-Term Goals Long-Term Goals PT Long-Term Goals Time Frame: Feb 09, 2023 Roll Left & Right (QC): 4 Sit to Lying (QC): 4 Lying-Sitting on Side/Bed(QC): 4 Sit to Stand (QC): 4 Chair/Jtj-xt-Jnsoz Xfer(QC): 4 Toilet Transfer (QC): 4 Walk 10 feet (QC): 3 PT Plan Treatment/Plan Treatment Plan: Continue Plan of Care Treatment Plan: Bed Mobility, Education, Functional Activity Sammie, Functional Strength, Gait, Safety, Therapeutic Exercise, Transfers Treatment Duration: Feb 09, 2023 Frequency: 6 times per week Estimated Hrs Per Day: .25 hour per day Time Time In: 736 Time Out: 749 DATE: Jan 31, 2023 Total Billed Treatment Time: 13 Total Billed Treatment 1 visit FA 13 min AUSTEN CORONEL PT Jan 31, 2023 07:55
--- NOTE | 2023-01-31 08:24 | Cardiology Progress Note ---
Subjective Date Seen by Provider: Jan 31, 2023 Time Seen by Provider: 08:23 Subjective/Events-last exam Patient was seen at bedside, sitting comfortably, feeling better today, still tachycardic Review of Systems General: No Chills, No Night Sweats; Fatigue; No Malaise, No Appetite, No Other HEENT: No Head Aches, No Visual Changes, No Eye Pain, No Ear Pain, No Dyspha anuj, No Sinus Congestion, No Post Nasal Drip, No Sore Throat, No Other Pulmonary: No Dyspnea, No Cough, No Pleuritic Chest Pain, No Other Cardiovascular: No: Chest Pain, Palpitations, Orthopnea, Paroxysmal Noc. Dyspnea, Edema, Lt Headedness, Other Objective-Cardiology Exam Last Set of Vital Signs Vital Signs 01/29/23 01/29/23 01/31/23 01/31/23 01/31/23 01/31/23 07:05 10:17 03:57 07:00 07:31 07:42 Temp 36.8 Pulse 96 Resp 18 B/P (MAP) 129/92 (102) Pulse Ox 97 O2 Delivery Room Air O2 Flow Rate 0.00 FiO2 21 I&O Intake and Output 01/31/23 00:00 Intake Total 1000 ml Output Total 1200 ml Balance -200 ml Intake Oral 1000 ml Output Urine Total 1200 ml # Bowel Movements 1 General: Alert, Oriented X3, Cooperative HEENT: Atraumatic, PERRLA Neck: Supple, No JVD, No Thyromegaly Lungs: Clear to Auscultation, Normal Air Movement Heart: Normal S1, Normal S2, No Murmurs, Other Abdomen: Normal Bowel Sounds, Soft, No Tenderness, No Hepatosplenomegaly, No Masses Extremities: No Clubbing, No Cyanosis, No Edema, Normal Pulses, No Tenderness/Swelling Skin: No Rashes, No Breakdown, No Significant Lesion Neuro: Normal Gait, Normal Speech, Strength at 5/5 X4 Ext, Normal Tone, Sensation Intact Psych/Mental Status: Mental Status NL, Mood NL Results Lab Laboratory Tests 01/31/23 04:15 A/P-Cardiology Admission Diagnosis Permanent atrial fibrillation Bradycardia Cardiac pacemaker Assessment/Plan Permanent atrial fibrillation with long pauses Sinus node dysfunction Status post pacemaker implantation Still tachycardic at this point, I will increase Cardizem again to CD to 40 mg daily Monitor tolerance and response Generalized weakness, arm pain, physical therapy consulted Possible transfer to acute rehab Chronic oral anticoagulation Status post fall and bruising on her arm. Change in mental status. SHARRI MONTAÑO MD Jan 31, 2023 08:24
[2023-01-31] MEDS: ACETAMINOPHEN 325 MG TABLET PO PRN (08:26)
--- NOTE | 2023-01-31 10:46 | Progress Note - Hospitalist ---
Subjective HPI/CC On Admission Date Seen by Provider: Jan 31, 2023 Time Seen by Provider: 10:20 Pt is an 82yoCF with a PMH of a fib/flutter s/p ablation who presented to OSH due to fall, confusion and seizurelike activity. Pt is unable to provide any history due to confusion. Per family and reports from OSH she was having short episode of seizure like episodes. She was found to be bradycardiac into the thirties with a few seconds long pauses. She was transferred here for cardiology evaluation. Overnight this has continued but she has not had any further seizure like episodes. Shortly before I entered the room I was reviewing her telemetry and noticed her drop her rate to 19. Family states she did not have any symptoms with this but they noticed she looked different and saw it on the monitor and wondered if that was why. Recovered quickly to the high 30s and 40s. Subjective/Events-last exam She did not sleep well last night. She still has some pain in her wrist. She has no other complaints. Objective Exam Vital Signs Vital Signs Date Time Temp Pulse Resp B/P (MAP) Pulse Ox O2 Delivery O2 Flow Rate FiO2 01/31/23 08:26 36.8 01/31/23 08:00 97 Room Air 0.00 01/31/23 07:00 96 01/31/23 03:57 18 129/92 (102) 01/29/23 10:17 21 Capillary Refill : Less Than 3 Seconds General Appearance: No Apparent Distress, WD/WN Respiratory: Lungs Clear, No Respiratory Distress Cardiovascular: Irregularly Irregular, Tachycardia Gastrointestinal: Normal Bowel Sounds, Soft Extremity: No Inflammation; Pedal Edema Neurologic/Psychiatric: Alert, Normal Mood/Affect Skin: Ecchymosis Results/Procedures Lab Laboratory Tests 01/31/23 04:15 Patient resulted labs reviewed. Imaging: Reviewed Imaging Report Assessment/Plan Assessment and Plan Assess & Plan/Chief Complaint Bradycardia Afib with h/o ablation Cardiology following s/p pacemaker 01/28 Increased Cardizem Continue Xarelto HLD Depression No acute needs Debility Fall Wrist pain XR wrist without acute fracture, likely sprain/strain PT/OT IRU denied SW consulted, will need SNF referral Confusion, resolved Diagnosis/Problems Diagnosis/Problems (1) Symptomatic bradycardia Status: Acute (2) Hypertension Status: Chronic Qualifiers: Hypertension type: primary hypertension Qualified Codes: I10 - Essential (primary) hypertension (3) Depression Qualifiers: Depression Type: unspecified Qualified Codes: F32.A - Depression, unspecified (4) Atrial flutter Qualifiers: Atrial flutter type: unspecified Qualified Codes: I48.92 - Unspecified atrial flutter (5) Hyperlipidemia Qualifiers: Hyperlipidemia type: unspecified Qualified Codes: E78.5 - Hyperlipidemia, unspecified (6) Delirium JUJU TY MD Jan 31, 2023 10:46
[2023-01-31] MEDS: RIVAROXABAN 15 MG TABLET (XARELTO) PO SCH (12:38)
--- NOTE | 2023-01-31 13:44 | Occupational Ther Daily Note ---
OT Current Status-Daily Note Subjective Patient seen while eating lunch to assess red foam handle utensil norwood and HEP for LUE hand. Patient reports improved ability from yesterday Mental Status/Objective Patient Orientation: Person, Place ADL-Treatment Therapy Code Descriptions/Definitions Functional Island Measure: 0=Not Assessed/NA 4=Minimal Assistance 1=Total Assistance 5=Supervision or Setup 2=Maximal Assistance 6=Modified Island 3=Moderate Assistance 7=Complete IndependenceSCALE: Activities may be completed with or without assistive devices. 0-Sskurntvkq-dbujcpb completes the activity by him/herself with no assistance from a helper. 5-Set-up or Clean-up Assistance-helper sets up or cleans up; patient completes activity. Az[place]a assists only prior to or following the activity. 4-Supervision or Touching Assistance-helper provides verbal cues and/or touching/steadying and/or contact guard assistance as patient completes activity. Assistance may be provided throughout the activity or intermittently. 3-Partial/Moderate Assistance-helper does LESS THAN HALF the effort. Azalea lifts, holds or supports trunk or limbs, but provides less than half the effort. 2-Substantial/Maximal Assistance-helper does MORE THAN HALF the effort. Azalea lifts or holds trunk or limbs and provides more than half the effort. 8-Hxftkktuo-xcwiuy does ALL the effort. Patient does none of the effort to complete the activity. Or, the assistance of 2 or more helpers is required for the patient to complete the activity. If activity was not attempted, code reason: 7-Patient Refused. 9-Not Applicable-not attempted and the patient did not perform the activity before the current illness, exacerbation or injury. 10-Not Attempted due to Environmental Limitations-(lack of equipment, weather restraints, etc.). 88-Not Attempted due to Medical Conditions or Safety Concerns. Eating (QC): 6 (open peel lid condiments w/ teeth once intetrvention provideed, OT recomends use of L hand in splint to stabilize objects and manipulate opening w/ Right hand) Oral Hygiene (QC): 5 Other Treatment Patient demonstrated 50% recall with 25% VCs for hand HEP. Patient family ca regiver in room is asked to allow patient to recall and provide OT with information Education OT Patient Education: Correct positioning, Home exercise program, Modified ADL techniques, Progress toward Goal/Update tx plan, Purpose of tx/functional activities, Reviewed precautions, Rehab process, Use of adapted equipment Teaching Recipient: Patient, Family Teaching Methods: Demonstration, Discussion Response to Teaching: Reinforcement Needed OT Short Term Goals Short Term Goals Time Frame: Feb 06, 2023 Eatin Oral hygiene: 4 (Supervision) Toileting hygiene: 3 (With AE as needed.) Upper body dressin Lower body dressin (Mod assist with AE as needed.) Putting on/taking off footwear: 3 (Mod assist with AE as needed.) OT Technical Specialist Cytology Goals Detention Goals Time Frame: Feb 20, 2023 Eating (QC): 6 Oral Hygiene (QC): 5 Toileting Hygiene (QC): 3 (Min assist with AE as needed to baseline.) Shower/Bathe Self (QC): 3 Upper Body Dressing (QC): 5 Lower Body Dressing (QC): 3 (Min assist with AE as needed to baseline.) On/Off Footwear (QC): 3 Additional Goals: 1-Demonstrate ADL Tasks, 2-Verbalize Understanding, 3- ImproveStrength/Sammie 1=Demonstrate adherence to instructed precautions during ADL tasks. 2=Patient will verbalize/demonstrate understanding of assistive devices/modifications for ADL. 3=Patient will improve strength/tolerance for activity to enable patient to perform ADL's. OT Education/Plan Problem List/Assessment Assessment: Decreased Activ Tolerance, Decreased UE Strength, Impaired Coordination, Impaired Self-Care Skills Discharge Recommendations Plan/Recommendations: Continue POC Treatment Plan/Plan of Care Treatment,Training & Education: Yes Patient would benefit from OT for education, treatment and training to promote independence in ADL's, mobility, safety and/or upper extremity function for ADL's. Plan of Care: ADL Retraining, Caregiver Training, Functional Mobility, UE Funct Exercise/Act Treatment Duration: Feb 20, 2023 Frequency: 3 times per week (3-5x/week) Estimated Hrs Per Day: .25 hour per day Agreement: Yes Rehab Potential: Fair Time Start Time: 13:00 Stop Time: 13:17 DATE: Jan 31, 2023 Total Time Billed (hr/min): 17 Billed Treatment Time ADL 17 min MICHAEL SALCIDO OT Jan 31, 2023 13:44
[2023-01-31] MEDS ORDERED: SERTRALINE 50 MG (ZOLOFT) TABLET PO SCH (21:00)
[2023-02-01 05:03] LABS: BASOPHILS # (AUTO) 0.1 10^3/uL (0.0-0.1); BASOPHILS % (AUTO) 1 % (0-10); EOSINOPHILS # (AUTO) 0.2 10^3/uL (0.0-0.3); EOSINOPHILS % (AUTO) 3 % (0-10); HEMATOCRIT 35 % (35-52); HEMOGLOBIN 11.9 g/dL (11.5-16.0); LYMPHOCYTES # (AUTO) 0.6 10^3/uL (1.0-4.0); LYMPHOCYTES % (AUTO) 8 % (12-44); MEAN CORPUSCULAR HEMOGLOBIN 31 pg (25-34); MEAN CORPUSCULAR HGB CONC 34 g/dL (32-36); MEAN CORPUSCULAR VOLUME 92 fL (80-99); MEAN PLATELET VOLUME 10.7 fL (9.0-12.2); MONOCYTES # (AUTO) 0.7 10^3/uL (0.0-1.0); MONOCYTES % (AUTO) 10 % (0-12); NEUTROPHILS # (AUTO) 5.5 10^3/uL (1.8-7.8); NEUTROPHILS % (AUTO) 78 % (42-75); PLATELET COUNT 191 10^3/uL (130-400); WHITE BLOOD COUNT 7.1 10^3/uL (4.3-11.0)
[2023-02-01 05:24] LABS: ALBUMIN 3.7 GM/DL (3.2-4.5); BILIRUBIN,TOTAL 1.2 MG/DL (0.1-1.0); CALCIUM 8.6 MG/DL (8.5-10.1); CREATININE SERUM 0.86 MG/DL (0.60-1.30); MAGNESIUM 2.2 MG/DL (1.6-2.4); POTASSIUM 4.1 MMOL/L (3.6-5.0); TOTAL PROTEIN 6.8 GM/DL (6.4-8.2)
[2023-02-01] MEDS: POTASSIUM CL 10MEQ/50ML IVPB 50 ML IV SCH (05:49)
[2023-02-01] MEDS: KCL 20 MEQ TAB (K-DUR) PO SCH (05:49)
[2023-02-01] MEDS: MAGNESIUM 1 GM/100 ML IVPB 100 ML IV SCH (05:49)
[2023-02-01] MEDS: NS IV 1000 ML 1,000 ML IV SCH (08:30)
--- NOTE | 2023-02-01 11:38 | Cardiology Progress Note ---
Cardiology SOAP Progress Note Subjective: No significant cardiac complaints. Objective: I&O/Vital Signs 01/31/23 02/01/23 02/01/23 02/01/23 23:40 01:00 03:33 07:00 Temp 36.6 36.4 Pulse 107 99 102 98 Resp 20 22 B/P (MAP) 129/82 (98) 138/115 (123) Pulse Ox 94 96 O2 Delivery Room Air Room Air 02/01/23 02/01/23 02/01/23 07:57 08:00 10:40 Temp 36.4 Pulse 110 Resp 18 B/P (MAP) 148/95 (112) Pulse Ox 93 96 O2 Delivery Room Air Room Air 02/01/23 00:00 Intake Total 700 ml Output Total 250 ml Balance 450 ml Weight (Pounds): 163 Weight (Ounces): 0.6 Weight (Calculated Kilograms): 73.604138 Constitutional: No apparent distress Respiratory: chest is bilaterally symmetric, lungs clear to auscultation Cardiovascular: irregularly irregular Gastrointestional: soft Extremities: No pedal edema Neurologic/Psychiatric: alert, normal mood/affect Results/Procedures: Labs Laboratory Tests 02/01/23 04:36: White Blood Count 7.1, Red Blood Count 3.84, Hemoglobin 11.9, Hematocrit 35, Mean Corpuscular Volume 92, Mean Corpuscular Hemoglobin 31, Mean Corpuscular Hemoglobin Concent 34, Red Cell Distribution Width 14.0, Platelet Count 191, Mean Platelet Volume 10.7, Immature Granulocyte % (Auto) 0, Neutrophils (%) (Auto) 78H, Lymphocytes (%) (Auto) 8L, Monocytes (%) (Auto) 10, Eosinophils (%) (Auto) 3, Basophils (%) (Auto) 1, Neutrophils # (Auto) 5.5, Lymphocytes # (Auto) 0.6L, Monocytes # (Auto) 0.7, Eosinophils # (Auto) 0.2, Basophils # (Auto) 0.1, Immature Granulocyte # (Auto) 0.0, Sodium Level 140, Potassium Level 4.1, Chloride Level 109H, Carbon Dioxide Level 18L, Anion Gap 13, Blood Urea Nitrogen 14, Creatinine 0.86, Estimat Glomerular Filtration Rate 68, BUN/Creatinine Ratio 16, Glucose Level 116H, Calcium Level 8.6, Corrected Calcium 8.8, Phosphorus Level 2.0L, Magnesium Level 2.2, Total Bilirubin 1.2H, Aspartate Amino Transf (AST/SGOT) 169H, Alanine Aminotransferase (ALT/SGPT) 111H, Alkaline Phosphatase 166H, Total Protein 6.8, Albumin 3.7 Microbiology 01/25/23 MRSA Screen - Final, Complete MRSA not isolated A/P: Assessment/Dx: Permanent atrial fibrillation with long pauses, s/p single-chamber permanent pacemaker Oral anticoagulation, Fall Plan: S/p single-chamber permanent pacemaker. Permanent atrial fibrillation, restarted on oral anticoagulation. However I discussed with the patient that if she is unsteady on her feet and we considered that she may be at high risk for falling in the future, we will discontinue Xarelto. She understands. Follow-up with Dr. Vásquez. Thank you for your consultation. Please call me if you have any questions. Manuela Siegel MD, FACP, FACC, FSCAI, FHRS, CCDS Interventional Cardiology Cardiac Electrophysiology Vascular Medicine and Endovascular Interventions [place] SIEGEL MD Feb 01, 2023 11:37
--- NOTE | 2023-02-01 19:25 | Discharge Summary ---
Discharge Summary Hospital Course Problems/Dx: (1) Symptomatic bradycardia Status: Acute (2) Hypertension Status: Chronic Qualifiers: Qualified Codes: I10 - Essential (primary) hypertension (3) Depression Qualifiers: Qualified Codes: F32.A - Depression, unspecified (4) Atrial flutter Qualifiers: Qualified Codes: I48.92 - Unspecified atrial flutter (5) Hyperlipidemia Qualifiers: Qualified Codes: E78.5 - Hyperlipidemia, unspecified (6) Delirium Hospital Course Date of Admission: Jan 25, 2023 at 21:51 Admission Diagnosis : Symptomatic bradycardia Family Physician/Provider: Radha Davila Date of Discharge: 02/01/23 Discharge Diagnosis: Symptomatic bradycardia Hospital Course: Barb Sellers is an 82 year old female who presented after a fall and confusion and was admitted with symptomatic bradycardia. Cardiology was consulted and assisted with her care. Her metoprolol and diltiazem were held. She had a temporary pacemaker placed. Her heart rates improved but she continued to have long pauses. She underwent permanent pacemaker placement. Her heart rate increased. Her diltiazem was restarted. She was debilitated. Her right wrist was injured due to her fall. Her left arm was in a sling after the pacemaker placement. She was transferred to [facility] bed. She was transferred in stable condition. Labs and Pending Lab Test: Laboratory Tests 02/01/23 04:36: White Blood Count 7.1, Red Blood Count 3.84, Hemoglobin 11.9, Hematocrit 35, Mean Corpuscular Volume 92, Mean Corpuscular Hemoglobin 31, Mean Corpuscular Hemoglobin Concent 34, Red Cell Distribution Width 14.0, Platelet Count 191, Mean Platelet Volume 10.7, Immature Granulocyte % (Auto) 0, Neutrophils (%) (Auto) 78H, Lymphocytes (%) (Auto) 8L, Monocytes (%) (Auto) 10, Eosinophils (%) (Auto) 3, Basophils (%) (Auto) 1, Neutrophils # (Auto) 5.5, Lymphocytes # (Auto) 0.6L, Monocytes # (Auto) 0.7, Eosinophils # (Auto) 0.2, Basophils # (Auto) 0.1, Immature Granulocyte # (Auto) 0.0, Sodium Level 140, Potassium Level 4.1, Chloride Level 109H, Carbon Dioxide Level 18L, Anion Gap 13, Blood Urea Nitrogen 14, Creatinine 0.86, Estimat Glomerular Filtration Rate 68, BUN/Creatinine Ratio 16, Glucose Level 116H, Calcium Level 8.6, Corrected Calcium 8.8, Phosphorus Level 2.0L, Magnesium Level 2.2, Total Bilirubin 1.2H, Aspartate Amino Transf (AST/SGOT) 169H, Alanine Aminotransferase (ALT/SGPT) 111H, Alkaline Phosphatase 166H, Total Protein 6.8, Albumin 3.7 Microbiology 01/25/23 MRSA Screen - Final, Complete MRSA not isolated Home Meds Active Reported Melatonin 5 Mg Tablet 5 Mg PO HS Fiber Gummies (Inulin) 2 Gram Tab.chew 2 Gm PO DAILY Prolia (Denosumab) 60 Mg/Ml Disp.syrin 60 Mg INJ EVERY 6 MONTHS Calcium (Calcium Carbonate) 500 Mg Calcium (1250 Mg) Tab.chew 500 Mg PO BID WITH MEALS Multivitamin Gummies (Multivit-Minerals/Folic Acid) 200 Mcg Tab.chew 2 Ea PO 1200 Matzim LA (Diltiazem HCl) 360 Mg Tab.er.24h 360 Mg PO DAILY Dorzolamide-Timolol Eye Drops (Dorzolamide HCl/Timolol Maleat) 22.3 Mg-6.8 Mg/Ml Drops 1 Drop OU 0700,1200 Travoprost 0.004 % Drops 1 Drop OU HS Xarelto (Rivaroxaban) 15 Mg Tablet 15 Mg PO 1200 Rosuvastatin Calcium 10 Mg Tablet 10 Mg PO DAILY Gabapentin 100 Mg Capsule 100 Mg PO TIDWM Sertraline HCl 25 Mg Tablet 25 Mg PO HS Colace (Docusate Sodium) 100 Mg Capsule 100 Mg PO Q48H Assessment/Pt Instructions Discharged to [facility] Discharge Planning: >30 minutes discharge planning Discharge Instructions Discharge Diet: Low Sodium Diet Activity as Tolerated: Yes Consultations Cardiology Discharge Physical Examination Vital Signs Vital Signs Date Time Temp Pulse Resp B/P (MAP) Pulse Ox O2 Delivery O2 Flow Rate FiO2 02/01/23 10:40 02/01/23 08:00 96 Room Air 02/01/23 07:57 36.4 110 18 01/31/23 08:00 0.00 01/29/23 10:17 21 Allergies: Coded Allergies: No Known Drug Allergies (Unverified , 12/11/18) Discharge Summary Date of Admission Jan 25, 2023 at 21:51 Date of Discharge Feb 01, 2023 at 10:10 Discharge Date: Feb 01, 2023 Discharge Time: 10:10 Admission Diagnosis Bradycardia Consults/Procedures Consulations Cardiology Procedures Pacemaker Discharge Diagnosis Bradycardia Pacemaker placement Afib with h/o ablation HLD Depression Debility Fall Wrist pain Confusion, resolved (1) Symptomatic bradycardia Status: Acute (2) Hypertension Status: Chronic Qualifiers: Qualified Codes: I10 - Essential (primary) hypertension (3) Depression Qualifiers: Qualified Codes: F32.A - Depression, unspecified (4) Atrial flutter Qualifiers: Qualified Codes: I48.92 - Unspecified atrial flutter (5) Hyperlipidemia Qualifiers: Qualified Codes: E78.5 - Hyperlipidemia, unspecified (6) Delirium JUJU TY MD Feb 01, 2023 19:25
== END 2023-02-01 10:10 | disposition short-term general hospital (02) | DRG 244 ==
LOC: ICU 21:51
PROVIDERS: ADMIT Family Medicine; ATTEND Internal Medicine
PROC: 5A1213Z Performance of Cardiac Pacing, Intermittent (ICD-10-PCS; 2023-01-26)
PROC: 0JH604Z Insertion of Pacemaker, Single Chamber into Chest Subcutaneous Tissue and Fascia, Open Approach (ICD-10-PCS; principal; 2023-01-28)
PROC: 02HK3JZ Insertion of Pacemaker Lead into Right Ventricle, Percutaneous Approach (ICD-10-PCS; 2023-01-28)
PROC: 02PA0MZ Removal of Cardiac Lead from Heart, Open Approach (ICD-10-PCS; 2023-01-28)
DX: I48.21 Permanent atrial fibrillation (principal); I10 Essential (primary) hypertension; F32.A Depression, unspecified; I48.92 Unspecified atrial flutter; Z86.73 Personal history of transient ischemic attack (TIA), and cerebral infarction without residual deficits; F41.9 Anxiety disorder, unspecified; I44.2 Atrioventricular block, complete; E78.00 Pure hypercholesterolemia, unspecified; K21.9 Gastro-esophageal reflux disease without esophagitis; R09.02 Hypoxemia; R41.82 Altered mental status, unspecified; T44.7X5A Adverse effect of beta-adrenoreceptor antagonists, initial encounter; Z79.01 Long term (current) use of anticoagulants; Z79.899 Other long term (current) drug therapy; I49.5 Sick sinus syndrome; M25.531 Pain in right wrist
CPT/HCPCS: 33210; 33249; 36415; 70450; 71045; 71046; 73110; 75820; 80053; 83735; 84100; 85007; 85025; 85027; 87081; 93005; 94760